=== PATIENT | female | born 1945 | race Caucasian/White ===

== ENCOUNTER 2023-08-19 08:52 | Outpatient (RCR) | payer OTHER, SELFPAY | END 2023-08-19 23:59 | disposition home or self-care (01) | LOC: RPT 08:52 | PROVIDERS: ATTENDING PHYSICIAN Family Medicine | DX: R29.6 Repeated falls (principal); R26.89 Other abnormalities of gait and mobility; M62.81 Muscle weakness (generalized); Z73.6 Limitation of activities due to disability | CPT/HCPCS: 97010; 97110; 97140; 97162; 97530 ==

== ENCOUNTER 2023-08-25 11:57 | Outpatient (RCR) | payer OTHER, SELFPAY | END 2023-08-25 13:50 | disposition home or self-care (01) | LOC: RPT 11:57 | PROVIDERS: ATTENDING PHYSICIAN Family Medicine | DX: R26.89 Other abnormalities of gait and mobility (principal); M62.81 Muscle weakness (generalized); Z73.6 Limitation of activities due to disability; R29.6 Repeated falls | CPT/HCPCS: 97110; 97140; 97530 ==

== ENCOUNTER 2024-01-23 23:07 | Inpatient (IN) | payer OTHER, SELFPAY ==
[2024-01-23] VITALS (18 sets, daily range): BP systolic 123–183; BP diastolic 62–139; BMI 29.1; BMI 28.3
--- NOTE | 2024-01-23 21:55 | ED.CVA ---
History of Present Illness
General
Chief Complaint: CVA/TIA Symptoms
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
Exam Limitations: clinical condition and altered mental status
Time Seen by Provider: 01/23/24 21:49
Onset of Stroke Symptoms
Onset of symptoms known: No
Time pt last seen normal is known: No
History of Present Illness
History of Present Illness:
78-year-old female history of CVA with resulting memory issues only per EMS report presents with acute onset of slurred speech left arm greater than leg weakness 45 minutes ago, prehospital stroke alert was called and met her in the ambulance bay
she was sent to CAT scan urgently
Prior records briefly reviewed she had a small subfalcine subdural hematoma she had a large right MCA CVA, reportedly takes a 'blood thinner'
10:08 PM discussed with pharmacy buyer med reconciliation completed as per late December of this year patient was on Brilinta but no other blood thinners
Past History
Past History
ED Past Medical History: CVA, Hypercholesterolemia, NIDDM (Controlled by Diet) and Other (Fecal incontinence)
ED Past Surgical History: Appendectomy, Cholecystectomy, Orthopedic (Bilateral knee replacements, right shoulder replacement) and Other (Cataracts)
Social History
Tobacco: Non-smoker
Alcohol: None
Drug: None
Personal:
Living: with family
Employment: Retired
Family History
Family History: Other (Mother with COPD father of brain cancer )
Review of Systems
Review of Systems
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
All Other Systems: Not applicable
Neurological: Reports weakness
Phy Exam
Physical Exam
Physical Exam:
Physical Exam
General: no apparent distress, not acutely ill
Neck: No tongue
Heart: Rate
Lungs: no acute respiratory distress. clear bilaterally
Abdomen: Nontender
Neuro: Eyes are open answers commands slurred speech left-sided weakness
Skin: no rash
Psychiatric: well kept. interactive and cooperative
Extremities: no edema.
Course
Orders/Labs/Results
Orders:
Orders
01/23/24 21:49
CT Head W/o Cont STROKE ALERT Urgent
Comment:
Reason For Exam: apahsia left sided weekenss
CT Head/Neck Ang STROKE ALERT Urgent
Comment:
Reason For Exam: apahasia left sided waekaness
Cardiac Monitoring- Treatment ONCE
01/23/24 21:50
Electrocardiogram (*1) Stat
Reason for Study: Other
Other Reason for Exam: neuro symptoms
EKG- Treatment ONCE
01/23/24 22:27
Complete Blood Count/With Diff Urgent
Comprehensive Metabolic Panel Urgent
Glycohemoglobin (HgbA1c) Urgent
PTT Urgent
Prothrombin Time Urgent
01/23/24 22:28
Labetalol HCl [Trandate] 10 mg IV NOW STA
Ondansetron Injectable [Zofran] 4 mg IV NOW STA
01/23/24 22:36
Tenecteplase [Tnkase] 18 mg Syringe [Syringe Non-Pump] 0 ml IV NOW
Provider explained risk/benefits to patient &/or caregiver?: Yes
Blood pressure: 141/108
01/23/24 22:57
Admit/Transfer Patient As Directed
Co-Sign Provider:
Level of Care: Inpatient admission
Assign to:: ICU
Physician / Group: phuc silva
Diagnosis: acute cva
Reason for Hospitalization: acute cva
Expected length of stay greater than two midnights?: Yes
ELOS- Estimated Length of Stay in days: 5
I certify the patient meets the requirements for IP care: Yes
Code Status As Directed
Resuscitation Status: Full Code
01/23/24 23:00
Flush (0.9% Sodium Chloride) [Flush (Nss)] See Dose Instructions IV PER PROTOCOL
PRN Pain Medication Management As Directed
May give lesser potent ordered pain med per pt: Yes
preference::
Protocol:: Medication orders for pain may be administered in a
manner that supports deferring to patient preference
when the pt is:
- Requesting an ordered lesser potent pain medication.
Least to most potent pain medications are defined
as: acetaminophen < NSAID < tramadol < opioids
(morphine, oxycodone, hydromorphone).
- Requesting a lesser dose of the same medication IF
ORDERED.
- Requesting a less intrusive route of administration
if both routes are prescribed by the provider (PO <
IV).
01/23/24 23:03
Labetalol HCl [Trandate] 10 mg IV NOW STA
01/23/24 23:10
Acetaminophen [Tylenol] 650 mg PO Q4HPRN PRN
Dextrose 50%-Water [Dextrose 50% Syringe] 12.5 grams IV [id number] PRN
Glucagon [GlucaGen] 1 mg IM PRN PRN
Pantoprazole [Protonix] 20 mg PO DAILYPRN PRN
01/23/24 23:10
Electrocardiogram (*1) Routine
Reason for Study: TIA/Stroke
DIETARY CONSULT Routine
Reason for Consult: stroke/TIA
[employer] Consult Routine
Consulting Provider: Darryl Knight
Was physician already notified: Yes
Reason for consult: acute cva
NEUROLOGY CONSULT Urgent
Consulting Provider: Cornelio Haney
Was physician already notified: Yes
Reason for consult: acute cva
Welt Stitcher Urgent
VTE Contraindication Routine
VTE Mechanical Device Contraindication: Medical Contraindication
Pharmocologic Contraindication: Medical Contraindication
Comment: pt received tnk
MR Brain Without Contrast Routine
Comment: complete 24 hrs post tenecteplase admin &/or IAT
Reason For Exam: poss stroke, status post tenecteplase &/or IAT,
OK for patient to be off Cardiac Monitoring for MRI: Yes
Recent pill cam endoscopy?: No
Pacemaker/Defibrillator?: No
Activity As Directed
Activity Level: With Assistance
Bedside Glucose Monitoring As Directed
Frequency: AC&HS
Additional Instructions:: Change to q6h if pt on TPN, tube feeding or not eating
Hemetest Stools As Directed
Comment: hemoccult all stools if patient received tenecteplase
NIH Stroke Scale As Directed
Directions: Other
Comment: For Tenecteplase: NIH stroke Scale to be completed prior to administration, then every 1 hour for
2 hours, then every shift and with change in condition and/or mental status.
For IAT: NIH stroke scale to be completed at hand off, every 1 hour for 2 hours on arrival to ICU;
then every shift and with change in condition and/or mental status.
Neurological Checks As Directed
Frequency: Per unit guidelines
Additional Instructions:: after start of thrombolytic therapy and/or IAT:
q15min x 2 hrs, q30min x 6 hrs, q1h x 16 hrs, q4h x 24 hrs, then every shift and
with any changes.
Neurological Checks As Directed
Frequency: q4h
Notify MD As Directed
Notify physician if: - Any deterioration, change in neurological status, development of severe headache,
nausea and vomiting, or with any signs of bleeding. (see guidelines for suspected
intracerebral hemorrhage).
- If intracranial hemorrhage is suspected or confirmed by imaging, anticipate need for
osmotic diuretic to maintain euvolemia.
Notify MD As Directed
Notify physician if: Glucose less than 70 or greater than 180.
Anticipate corrective insulin orders.
Notify MD As Directed
Notify physician if: unable to obtain MRI of head within 22-32 hours of tenecteplase administration and/or IAT
- contact Neurology for order for CT of head without contrast
Patient Education As Directed
Type: Stroke education packet
Comment: provide to patient and family
Pneumatic Compression Sleeves As Directed
Type: Knee high
Precautions As Directed
Type of Precautions: Bleeding
Comment: post Bleeding Precaution sign at bedside (if patient received tenecteplase)
Swallow Screening CVA/TIA ONLY As Directed
Comment: NPO until swallow screening completed
If patient FAILS swallow screening:: NPO and Speech consult and aspiration precautions
If patient PASSES swallow screening, diet:: 1800 kai/ 15 CHO Diabetic
Thrombolytic Precautions As Directed
Thrombolytic Precautions:: Farrell bleeding precautions. Minimize invasive procedures and venipunctures,
avoid IM injections and over-handling patient, and check all puncture sites for
bleeding. Assess the patient and notify provider for signs and symptoms of
internal or serious bleeding, such as changes in vital signs or evidence of blood
in the urine or stool.
Additional instructions: Hemocult all stools.
Apply direct pressure or pressure dressing to any compressible puncture sites.
No ABG sampling or Pepe insertion after Tenecteplase administration for 24 hours,
unless directed by the Neurologist/Attending.
Vital Signs As Directed
Frequency: q15m
Call for:: BP greater than 180/105 mmHg or less than 100/60 mmHg
Additional Instructions:: after start of thrombolytic therapy and/or IAT:
q15min x 2 hrs, q30min x 6 hrs, q1h x 16 hrs, q4h x 24 hrs, then every shift and
with any changes.
Vital Signs As Directed
Frequency: Per unit guidelines
Pulse Ox/spot Check [RESP] Routine
Quantity: 1
Ot Eval And Treat Routine
Pt Eval And Treat Routine
Activity Level: As Tolerated
Speech Therapy Eval & Treat Routine
Speech Therapy Eval & Treat Routine
DX Deep Vein Thrombosis Video Routine
01/24/24 06:00
Basic Metabolic Panel IN AM
Cardiovascular Evaluation IN AM
Complete Blood Count/No Diff IN AM
PTT IN AM
Prothrombin Time IN AM
01/24/24 07:30
Insulin Aspart Corrective Low [Novolog Flexpen-Low Resistance] See Protocol SC AC
01/24/24 08:00
Amlodipine [Norvasc] 5 mg PO DAILY
Venlafaxine Extended Release [Effexor Xr] 225 mg PO DAILY
01/24/24 18:00
Atorvastatin [Lipitor] 80 mg PO QPM
Abnormal Lab Results
01/23/24
22:27
Hct 35.8 L %
(37.0-47.0)
MCV 79.6 L fL
(81.0-99.0)
Absolute Neuts (auto) 6.8 H 10^3/uL
(1.4-6.5)
Absolute Monos (auto) 0.7 H 10^3/uL
(0.1-0.6)
Glucose 287 H mg/dl
(70-99)
01/23/24 22:27
01/23/24 22:27
Vital Signs
Initial and Last Documented VS:
Initial Vital Signs
Pulse Resp BP
97 18 178/109
01/23/24 22:02 01/23/24 22:02 01/23/24 22:02
Last Documented Vital Signs
Temp Pulse Resp BP Pulse Ox
97.6 F 80 23 153/104 93
01/23/24 22:30 01/24/24 01:50 01/24/24 01:50 01/24/24 01:50 01/24/24 01:00
MDM/Problems Addressed
Differential Diagnosis Includes:
Stroke intracerebral hemorrhage seizure with Milan's paralysis recrudescence
*Radiology
Radiology exam reviewed: radiology read reviewed
*Pulse Oximetry
Patient hypoxic: no
*Critical Care Note
Total Time (30-74mins, 75-104mins- exclusive of procedures): 45
comment:
CRITICAL CARE STATEMENT: A total of 45 minutes of critical care time was provided for this patient. This includes management of unstable vital signs, evaluation of the patient at bedside, reviewing the patient's pertinent medical records discussion
with EMS providers and patient's family in addition to discussion with consultants, review of old EKGs and review of pertinent medical records. This time with separate from time utilized to perform the aforementioned documented procedures
Update Note
Update Note:
1020p
Reevaluation patient now moving her arms and legs bilaterally, does appear to have slurred speech and a left facial which is new per the family
Reviewed indications and contraindications of lytic therapy with the patient and family shared decision making
She does appear to be a candidate, with the caveat that he get her blood pressure under control start some labetalol
1045 patient is worsened, she now aphasic again with left-sided weakness blood pressure is improved
The meantime I did receive a call from radiology this question of a distal M2 occlusion reviewed with cardiology and neurology would not be candidate here at [facility] for any intervention we will proceed with TNK
Discussed with family about the possibility of transfer downto they are comfortable staying here which I think is reasonable
CRITICAL CARE STATEMENT: A total of 45minutes of critical care time was provided for this patient. This includes management of unstable vital signs, evaluation of the patient at bedside, reviewing the patient's pertinent medical records discussion
with EMS providers and patient's family in addition to discussion with consultants, review of old EKGs and review of pertinent medical records. This time with separate from time utilized to perform the aforementioned documented procedures
ED Attending Note
-
Portions of this chart may have been created with voice recognition software.� Occasional wrong word or��sound alike� substitutions may have occurred due to the inherent limitations of voice recognition software.
Discharge Plan
Departure
Patient Disposition: Admit
Date of Disposition: 01/23/24
Time of Disposition: 22:55
Presentation/result/management discussed w/ accepting MD/DO: Hospitalist
Patient with high blood pressure during this ER visit?: No
Condition: Serious
Discharge Problem:
CVA (cerebral vascular accident)
Interventions
Interventions:
*Risk Screen - Suicide Last Done: 01/23/24 22:04
*General Assessment Last Done: 01/23/24 22:04
*Neglect/Abuse Screening Last Done: 01/23/24 22:04
*ED COVID-19 Vaccine History Last Done: 01/23/24 22:04
*Nursing Disposition Last Done: 01/23/24 23:23
ED- Pulmonary Assessment Last Done: 01/23/24 22:10
ED- Neurological Assessment Last Done: 01/23/24 22:51
ED- Cardiac Assessment Last Done: 01/23/24 22:10
ED Swallowing Screen Last Done: 01/23/24 23:21
Discharge Date and Time
Discharge Date/Time: 01/23/24 23:24
[2024-01-23 22:36] LABS: % Basophils 0.7 % (0-2); % Eosinophils 1.2 % (0-6); % Immature Granulocytes 0.3 % (0-0.5); % Neutrophils 69.8 % (42.2-75.2); Absolute Basophils 0.1 10^3/uL (0-0.2); Absolute Eosinophils 0.1 10^3/uL (0-0.7); Absolute Lymphocytes 2.1 10^3/uL (1.2-3.4); Absolute Monocytes 0.7 10^3/uL (0.1-0.6); Absolute Neutrophils 6.8 10^3/uL (1.4-6.5); Hematocrit 35.8 % (37.0-47.0); Hemoglobin 12.8 g/dL (12.0-16.0); Mean Corp Hgb Conc. 35.8 g/dL (33.0-37.0); Mean Corpuscular Hgb 28.4 pg (27.0-31.0); Mean Corpuscular Volume 79.6 fL (81.0-99.0); Mean Platelet Volume 9.3 fL (7.4-10.4); Nucleated Red Blood Cells % 0 %; Platelet Count 355 10^3/uL (130-400); Red Cell Dist. Width 14.1 % (11.5-14.5); White Blood Cell Count 9.8 10^3/uL (4.8-10.8)
[2024-01-23] MEDS: ZOFRAN 4 MG IV (22:41)
[2024-01-23 22:47] LABS: INR 0.98; PT 12.8 Sec (11.4-14.6)
[2024-01-23] MEDS: TNKASE 3.6 MG IV (22:47)
[2024-01-23 22:48] LABS: APTT 28.2 Sec (23.4-35.0)
--- NOTE | 2024-01-23 22:49 | HPS.HSE ---
Family Physician
-
Family Physician:
Chief Complaint
-
Left-sided weakness, slurred speech
History of Present Illness
78-year-old female from home with acute onset slurred speech, left arm and left leg weakness occurring 45 minutes prior to arrival in the ED. She had CT showing no acute intracranial abnormalities.. She had prior history of small subdural
hematoma, large right MCA CVA via brain MRI 07/30/2020. She is on current Brilinta 90 mg twice daily. Patient had nausea with vomiting up blackberries while in the ED. She denies fever, chills, headache, chest pain, palpitations, shortness breath,
cough, abdominal pain, diarrhea, urinary symptoms.
She is past medical history of CVA large right MCA 07/30/2020, Hx small subdural hematoma HLD, DM2, fecal incontinence, renal calculi history of laser lithotripsy ureteroscopy, anxiety, constipation
Medical History
Past Medical History
Past Medical History: Reports Other
Additional Past Medical History:
CVA large right MCA 07/30/2020
CVA x 2
Ex-smoker
PE after TSI was on Xarelto few weeks
Hx small subdural hematoma
HLD,
DM2,
fecal incontinence
renal calculi history of laser lithotripsy ureteroscopy
anxiety
constipation
Past Surgical History: Reports Other
Additional Past Surgical History:
Bilateral knee replacement
Right shoulder replacement
Cataract extraction
Appendectomy
Cholecystectomy
Hx loop recorder 2016
Uterine repair
D&C
Right TSA January 2017
Social History
Tobacco: Non-smoker
Alcohol: None
Drug: None
Personal:
Living: With Family
Employment: Retired
Family History
Family History: Other (Mother COPD father of brain CA)
Allergies / Home Medications
Allergies reflects when Allergies were last updated in [facility].
Home Medications with original date entered in [facility]
Allergy/Medication List:
Allergies
Allergy/AdvReac Type Severity Reaction Status Date / Time
No Known Allergies Allergy Verified 05/29/23 07:56
Home Medications
acetaminophen 500 mg tablet 1,000 mg PO Q8HPRN PRN mild pain 04/08/22
amlodipine 5 mg tablet 5 mg PO DAILY #90 tabs 04/22/22
ticagrelor 90 mg tablet (Brilinta) 90 mg PO BID #60 tabs 04/22/22
venlafaxine 75 mg capsule,extended release 24 hr 225 mg (3 x 75 mg) PO DAILY #90 caps 04/22/22
atorvastatin 80 mg tablet 80 mg PO QPM 01/23/24
clotrimazole 1 % topical cream 1 applic topical BID diaper rash 01/23/24
esomeprazole magnesium 20 mg capsule,delayed release (Nexium) 20 mg PO DAILYPRN PRN gerd 01/23/24
estradiol 0.01% (0.1 mg/gram) vaginal cream 1 appful vaginal TUFR 01/23/24
glimepiride 1 mg tablet 1 mg PO BID 01/23/24
quetiapine 25 mg tablet (Seroquel) 25 mg PO HS 01/23/24
trazodone 50 mg tablet 50 mg PO HS 01/23/24
Review of Systems
-
History Source: Patient and Family (Daughter at bedside)
A 12 point ROS was completed and negative except as noted: Yes
Constitutional: Denies Chills
EENT: Reports Other (Slurred speech, left peripheral field deficit, left arm left leg weakness with drift); Denies Sore Throat or Runny Nose
Respiratory: Denies Cough or Trouble Breathing
Cardiac: Denies Chest Pain, Diaphoresis, Palpitations or Syncope
Abdomen/GI: Denies Abdominal Pain, Nausea, Vomiting, Diarrhea, Constipated, Bloody Stools or Black Stools
: Denies Dysuria, Frequency, Flank Pain, Incontinence or Difficulty Voiding
Musculoskeletal: Denies Joint Pain or Edema
Skin: Denies Itching or Rash
Neurological: Denies Dizzy
Endocrine: Reports No Symptoms
Hematologic/Lymphatic: Reports No Symptoms
Psych: Reports Calm
Physical Exam
Vital Signs
Vital Signs
Temp Pulse Resp BP Pulse Ox
97.6 F 89 23 146/68 93
01/23/24 22:30 01/23/24 22:30 01/23/24 22:30 01/23/24 22:30 01/23/24 22:30
Physical Exam
General: No Fever or Chills
HEENT: NormoCephalic, Anicteric, PERRLA, [place] Conjunctivae, No Ptosis and Other (Slurred speech, left peripheral field deficit, left arm left leg weakness with drift, patient unable to complete [id number] with both arms, misses left side of
paper when reading)
Respiratory: Clear; No Wheezes, Rales or Rhonchi
Cardiac: S1/S2 and Regular Rhythm; No Murmur, Rub, Gallop or Peripheral Edema
Breast: Deferred by me
GI: Soft, Non Tender, Non Distended, Normal Bowel Sounds and No Hepatosplenomegaly
Rectal: Deferred by Provider
Genito-urinary: Deferred by me
Musculoskeletal: No Clubbing, No Cyanosis and No Edema
Skin: Warm and Dry; No Rash
Neuro: Awake, Alert, Oriented (To name, year but not month thinks it is July), No Sensory Deficits, Slurred Speech and Other (Slurred speech, left peripheral field deficit, left arm left leg weakness with drift 3/5 patient unable to complete
[id number] with both arms, misses left side of paper when reading); No Facial Droop
Psych: Calm
Laboratory Results
-
01/23/24 22:27
Laboratory Results
PT 12.8 Sec (11.4-14.6) 01/23/24 22:27
INR 0.98 01/23/24 22:27
APTT 28.2 Sec (23.4-35.0) 01/23/24 22:27
Data Reviewed
-
CT Scan: Report Reviewed by me
Lab Data: Labs Reviewed by me
Impression/Plan
-
Impression/plan:
Admit to ICU
#Acute CVA with left-sided weakness
PMH large right MCA infarct 07/30/2020
-TNK given in ER, TNK precautions
-Check lipid profile, HgbA1c
-Consult Neurology
-Hold Brilinta 90 mg twice daily until neurology eval
-PT/OT/case management consult
CT head: 1. No acute intracranial abnormality noted. Specifically, no definite evidence to suggest acute large vascular territory transcortical infarct at this time.
2. However, limited by extensive chronic ischemic change and numerous old infarcts. No acute intracranial hemorrhage.
3. Advanced global atrophy.
2D echo 01/15/2022: EF 55 to 60%, mild MR trace TR
#Ex-smoker
#PE after TSA was on Xarelto a few weeks
Hx loop recorder 2016
#HTN�benign
BP 146/68
-Continue amlodipine 5 mg daily
#HLD
-Check lipid profile
-Continue atorvastatin 80 mg every afternoon
#DM 2
Accu-Cheks with SSI, check HgbA1c
HOLD Glimepiride 1 mg twice daily
#anxiety
-Continue Seroquel 25 mg at bedtime, trazodone 50 mg at bedtime, Effexor to 25 mg daily
#GERD
Continue Nexium 20 mg daily or equivalent
#Constipation hx
-Monitor bowel movements
Other PMH:
fecal incontinence,
renal calculi history of laser lithotripsy ureteroscopy
DVT prophylaxis
SCDs given patient received TNK
Full code
[2024-01-23 22:55] LABS: ALT (SGPT) 17 U/L (0-35); AST (SGOT) 24 U/L (14-36); Albumin 3.8 g/dl (3.5-5.0); Alkaline Phosphatase 86 U/L (38-126); Blood Urea Nitrogen 15 mg/dl (7-17); Calcium 9.2 mg/dl (8.4-10.2); Carbon Dioxide 25 mmol/L (22-30); Chloride 100 mmol/L (98-107); Estimated Creatinine Clearance 52 ml/min; Glucose 287 mg/dl (70-99); Potassium 3.7 mmol/L (3.5-5.1); Sodium 137 mmol/L (135-145); Total Bilirubin 0.3 mg/dl (0.2-1.3); Total Protein 6.7 g/dl (6.3-8.2); eGFR > 60.00
[2024-01-24] VITALS (72 sets, daily range): BP systolic 93–182; BP diastolic 63–123; BMI 28.3
[2024-01-24] MEDS: TRANDATE 5 MG IV (00:04)
--- NOTE | 2024-01-24 00:36 | PTCARENOTE ---
Addendum entered by Tim Turner RN 01/24/24 00:48:
Bedside swallow exam completed, pt. successfully able to complete water challenge.
Original Note:
received pt. from ED post TNK, bedside report given, NIH assessment done at handoff.
NIH upon arrival : 9
Second NIH 1 hour later : 7
very mild aphasia, skips one word in sentence at times.
Mild dysarthria, slurr is present but understandable speech.
Pupils are equal and briskly reactive 2mm, normal gaze, however partial hemianopia with L eye. Mild L sided facial droop w/ smile.
Clumsy in L upper and lower extrem, Slight drift, R side no drift, coordinated.
Normal sinus on monitor, elevated diastolic pressures, 5mg labetalol given. normothermic.
--- NOTE | 2024-01-24 02:13 | W.PN.UPDATE ---
Update Note
Progress Note Update
0210- Patient vomiting, denies headache, no acute/new changes in neurological exam. STAT ct head ordered. Zofran IV 4mg ordered for nausea/vomiting. Updated neurologist Dr. Cornelio Haney, agreed with orders/plan.
[2024-01-24] MEDS: ZOFRAN 4 MG IV (02:17)
--- NOTE | 2024-01-24 02:42 | PTCARENOTE ---
Pt. had large episode of emesis, STAT CT ordered and completed.
Neurological status improving, new NIH score 7.
[2024-01-24] MEDS: TRANDATE 10 MG IV ×2 (03:05→16:15)
--- NOTE | 2024-01-24 03:18 | PTCARENOTE ---
Pt. SPo2 87-90, placed on 2L nc.
[2024-01-24 04:42] LABS: Hematocrit 37.6 % (37.0-47.0); Mean Corp Hgb Conc. 34.6 g/dL (33.0-37.0); Mean Corpuscular Hgb 27.9 pg (27.0-31.0); Mean Corpuscular Volume 80.7 fL (81.0-99.0); Mean Platelet Volume 9.3 fL (7.4-10.4); Platelet Count 361 10^3/uL (130-400); Red Blood Cell Count 4.66 10^6/uL (4.20-5.40); Red Cell Dist. Width 14.1 % (11.5-14.5); White Blood Cell Count 12.5 10^3/uL (4.8-10.8)
[2024-01-24 04:49] LABS: INR 1.02; PT 13.2 Sec (11.4-14.6)
[2024-01-24 04:50] LABS: APTT 28.1 Sec (23.4-35.0)
[2024-01-24 04:56] LABS: Blood Urea Nitrogen 14 mg/dl (7-17); Calcium 9.3 mg/dl (8.4-10.2); Carbon Dioxide 28 mmol/L (22-30); Chloride 100 mmol/L (98-107); Estimated Creatinine Clearance 51 ml/min; Glucose 289 mg/dl (70-99); HDL Cholesterol 51 mg/dl; LDL Cholesterol, Calculated 170 mg/dl; Magnesium 2.1 mg/dl (1.6-2.3); Phosphorus 4.5 mg/dl (2.5-4.5); Potassium 4.2 mmol/L (3.5-5.1); Sodium 140 mmol/L (135-145); Total Cholesterol 274 mg/dl (50-199); Triglyceride 266 mg/dl (10-149); Very Low Density Lipoprotein 53 mg/dl (0-30); eGFR > 60.00
--- NOTE | 2024-01-24 06:43 | W.PN.HOSP.TC ---
Today's Communication/Plan
-
.
Assessment / Plan
Assessment / Plan
Physical Exam
General: comfortable, no respiratory distress
HEENT: NormoCephalic, Anicteric, PERRLA, [place] Conjunctivae, right facial droop
Respiratory: Clear; No Wheezes, Rales or Rhonchi
Cardiac: S1/S2
GI: Soft, Non Tender, Non Distended, Normal Bowel Sounds
Rectal: No rectal bleeding
Genito-urinary: No Pepe
Musculoskeletal: No Clubbing, No Cyanosis and No Edema
Skin: Warm and Dry; No Rash
Neuro: Awake, Alert, Oriented to self and surroundings, no slurred Speech, right facial droop, no pronator drift, she followed commands. Gait not assessed
Psych: Calm
#Acute onset of slurred speech and with left-sided weakness, s/p TNK given in ER 01/23/24
PMH large right MCA infarct 07/30/2020
She feels better, speech seems fluent. Denies headache or chest pain, feels arms are normal now
-Hold Brilinta 90 mg twice daily until neurology evaluation
-PT/OT/Speech consult
- Repeat CT head after vomiting episode overnight showed stable findings of multiple regions of old infarction. Moderate diffuse atrophy. Moderate to severe leukomalacia.
- Moderate dementia with other behavioral disturbance per records.
- Appreciate neurology input
# Leukocytosis, reactive
# Recurrent major depressive disorder. Continue with venlafaxine, quetiapine and trazodone.
#Ex-smoker
#History of PE.
# Hx loop recorder 2016
#HTN�benign
BP 146/68
-Hold amlodipine 5 mg daily. Add PRN IV Hydralazine
#HLD
-Continue atorvastatin 80 mg every afternoon
#DM 2
Accu-Cheks with SSI, check HgbA1c
Holding Glimepiride 1 mg twice daily
#GERD
Continue Nexium 20 mg daily or equivalent
#Constipation hx
-Monitor bowel movements
Other PMH:
fecal incontinence,
renal calculi history of laser lithotripsy ureteroscopy
DVT prophylaxis
SCDs given patient received TNK
Total time spent to see the patient, examine the patient on the floor, review data and lab results, discuss the treatment plan with the patient, nursing staff around 55 minutes
Anticipated Discharge: 24 - 48 hours
Subjective/Interval History
-
Date of Service: January 24, 2024
She feels better, able to speak
She is forgetful
She is able to move arms and legs
Objective Data
-
Labs:
Laboratory Results
01/23/24 01/24/24
22:27 04:08
WBC 9.8 12.5 H
Hgb 12.8 13.0
Hct 35.8 L 37.6
Plt Count 355 361
PT 12.8 13.2
INR 0.98 1.02
APTT 28.2 28.1
Sodium 137 140
Potassium 3.7 4.2
Chloride 100 100
Carbon Dioxide 25 28
BUN 15 14
Creatinine 0.8 0.8
Glucose 287 H 289 H
Calcium 9.2 9.3
Total Bilirubin 0.3
AST 24
ALT 17
Alkaline Phosphatase 86
Vital Signs:
Vital Signs
Temp Pulse Resp BP Pulse Ox
98.7 F 77 24 149/76 92
01/24/24 06:00 01/24/24 06:20 01/24/24 06:20 01/24/24 06:20 01/24/24 06:20
I&O
01/22/24 01/23/24 01/24/24
06:59 06:59 06:59
Intake Total
Balance
[2024-01-24 07:31] LABS: Glucose - Point of Care 223 mg/dl (70-99)
--- NOTE | 2024-01-24 07:45 | CON.INTV ---
Addendum entered and electronically signed by Teodoro Austin MD 01/24/24 10:36:
Both and patient have confirmed DNR status
Asked to bring in documentation for scanning into [facility]
Patient is DNR, this has been changed
Original Note:
Consultation
Consultation Request
Date/Time Consultation Requested: 01/24/24
Date/Time Consultation Performed: 01/24/24
Reason for Consultation: Critical care
Medical History
-
History of Present Illness:
History obtained from the chart, patient, daughter at bedside, additional history obtained from at bedside, and review of outpatient records. Patient is an 78-year-old female with history of right MCA stroke 2020 hospitalized at [place],
who presents with acute onset slurred speech. Apparently she was at home and her thought her speech was not adequate. Records suggest left-sided weakness, she could not put her hand on the walker well ambulating. For this reason she was
brought to [facility], where upon arrival afebrile, pulse 97, breathing 18, blood pressure 178/109. Stroke alert was called,. Per ED records, clinical worsening noted. Imaging confirmed indication for lytic therapy. Patient mated to ICU
for further management. Of note she required intermittent doses of labetalol. We are asked to help from critical care standpoint
Of note, patient was evaluated by primary physician 01/17/2024. Received flu shot
.
PMH: History of stroke in 2019 and again in 2020 complicated by subdural bleed, history of hyperlipidemia, diabetes, bilateral knee replacement, gait dysfunction walks with walker. Records also suggest history of fecal incontinence, fibromyalgia.
History of appendectomy, cholecystectomy, right shoulder replacement, cataracts, History of nephrolithiasis with lithotripsy
Past Medical History
Past Medical History: None (See above)
Past Surgical History: None (See above)
Social History
Tobacco: Non-smoker
Alcohol: None
Drug: None
Personal:
Living: With Family
Family History
Family History: Other (Mother with history of COPD, father with brain cancer. 2 children healthy)
Allergies / Home Medications
Allergies
Allergy/AdvReac Type Severity Reaction Status Date / Time
No Known Allergies Allergy Verified 05/29/23 07:56
Home Medications
�Medication �Instructions �Recorded �Confirmed �Last Taken �Type
acetaminophen 500 mg tablet 1,000 mg PO Q8HPRN PRN mild pain 04/08/22 01/23/24 Unknown History
amlodipine 5 mg tablet 5 mg PO DAILY #90 tabs 04/22/22 01/23/24 Unknown Rx
ticagrelor 90 mg tablet (Brilinta) 90 mg PO BID #60 tabs 04/22/22 01/23/24 Unknown Rx
venlafaxine 75 mg capsule,extended 225 mg (3 x 75 mg) PO DAILY #90 04/22/22 01/23/24 Unknown Rx
release 24 hr caps
atorvastatin 80 mg tablet 80 mg PO QPM 01/23/24 01/23/24 Unknown History
clotrimazole 1 % topical cream 1 applic topical BID diaper rash 01/23/24 01/23/24 Unknown History
esomeprazole magnesium 20 mg 20 mg PO DAILYPRN PRN gerd 01/23/24 01/23/24 Unknown History
capsule,delayed release (Nexium)
estradiol 0.01% (0.1 mg/gram) 1 appful vaginal TUFR 01/23/24 01/23/24 Unknown History
vaginal cream
glimepiride 1 mg tablet 1 mg PO BID 01/23/24 01/23/24 Unknown History
quetiapine 25 mg tablet (Seroquel) 25 mg PO HS 01/23/24 01/23/24 Unknown History
trazodone 50 mg tablet 50 mg PO HS 01/23/24 01/23/24 Unknown History
Review of Systems
-
History Source: Family
All other systems: Negative unless noted
Vitals / Labs / Diagnostic Testing
Vital Signs
Temp Pulse Resp BP Pulse Ox
98.3 F 83 18 162/90 92
01/24/24 07:28 01/24/24 06:50 01/24/24 06:50 01/24/24 06:50 01/24/24 06:20
Lab Data
01/24/24 04:08
01/24/24 04:08
Laboratory Results
01/23/24 01/24/24
22:27 04:08
PT 12.8 13.2
INR 0.98 1.02
APTT 28.2 28.1
Diagnostic Testing:
Physical Exam
-
HEENT: Normocephalic and Anicteric
Cardiovascular: S1/S2, Regular Rhythm, Murmur (n) and Rub (n)
Respiratory: Wheeze (n), Rales (n), Rhonchi (n) and Non-Labored Respirations
GI: Soft, Non Distended and Non Tender
Neurology: Awake, Alert, Oriented (To hospital) and Other (Mild left facial droop, otherwise moves all extremities)
Skin: Good Color
General: Comfortable
Assessment
-
78-year-old female with history of stroke x 2, right MCA 2020 with small subdural hematoma, hypertension, diabetes, presents with acute onset of slurred speech and left-sided weakness. Initial imaging unremarkable. Patient was given tPA. Patient
also required intermittent labetalol for hypertension. We are asked to help from critical care standpoint 01/24/2024
Acute CVA, Rt MCA
Slurred speech, left-sided weakness
s/p TNK on 2246
NIH 12 level on presentation
Possible small right M2 thrombus per CTA
History of stroke x 2
2020 with small subdural hematoma
Prolonged QT, per EKG
Conditions present prior to admission
Hypertension/hyperlipidemia
Diabetes
GERD
History of falls
Gait disturbance
History of depression
Plan/recommendations
At this time, patient appears to be improved, NIH has improved to 6
Mild left facial droop noted, speech appears to be adequate, general exam nonfocal per my review
Labile blood pressure noted, received labetalol x 2 overnight
Moving forward
Continue with management per stroke protocol
Neurology following
Await decision on reinitiation of antiplatelet therapy, Brilinta being held patient did have episode of emesis overnight
Repeat imaging without any acute findings
Follow-up blood pressures
Labetalol as needed
Target systolic pressure 140-1 80, diastolic less than 105
Patient on oral antihypertensive therapy, hold for now
History of Linq implant 2016, negative for arrhythmias, explanted 2020
Recent echo 01/16/2024 with normal biventricular function, mild MR
Cardiology following
Hyperlipidemia therapy noted
Hyperglycemia noted
Resume oral regimen
Speech and swallow evaluation, advance diet as able
Sliding scale for now
Patient with snoring history. Given history of recurrent stroke, consider outpatient sleep workup if agreeable
This will be an ongoing discussion
Of note, states the patient is DNR. Will need to clarify and confirm. states documents show patient is DNR, does not want CPR or mechanical ventilation
Reviewed with critical care nursing, respiratory care, pharmacy, case management
TCCT 31 min
[2024-01-24] MEDS: EFFEXOR XR 225 MG PO (07:59)
[2024-01-24] MEDS: NOVOLOG FLEXPEN-LOW RESISTANCE 2 UNITS SC (08:07)
--- NOTE | 2024-01-24 08:25 | PTOTSP ---
Addendum entered and electronically signed by ST Ti 01/24/24 15:36:
Addendum: BLIND MOCA 8.2= 04/13, below normal (19 or greater), concerning for at least a moderate cognitive linguistic impairment with deficits in attention, working memory, abstract reasoning, temporal orientation, and delayed recall. Further
assessment warranted at the outpatient level. Patient in agreement.
Original Note:
Dysphagia Evaluation
Patient presents with signs concerning for mild oral/pharyngeal dysphagia and with risk factors for this (admitted with concern for stroke s/p TNK, history of multiple strokes).
Recommend:
1. Regular (pick soft/moist), Thin Liquids
2. Medications - whole in puree
3. Full supervision, partial assistance
4. Strategies: upright to 90 degrees, small single sips/bites, slow rate, check for pocketing on the left, alternate sips/bites and/or use lingual sweep to clear left side of mouth, remain upright for 30 minutes after meals as a reflux precaution
5. Oral care 3x daily
6. Dysphagia therapy at the acute care level. Will f/u to determine if/when video swallow study warranted.
7. Speech/language/cognitive evaluation as able/appropriate.
--- NOTE | 2024-01-24 09:09 | CON.CAR ---
Addendum entered and electronically signed by Dieudonne Alonzo MD 01/24/24 11:10:
I saw and examined the patient.
The COTTRELL BLOWER's note was reviewed and I agree with the note.
Comment: Neurology note reviewed. She was not on statin. unsure why/when it was stopped. Agree with resumption. Old labs suggest even on Atorvastatin 80 mg the LDL was above 70 so will add ezetimide. She has had a prior Linq for another
event that never showed AFib. Will start with a two week monitor and Dr. Calix may decide not to do more monitoring.
longterm BP goal <130/80, but neurology prefers less aggressive BP control for now.
Defer antiplatelet therapy to neurology.
Echo was from 01/15/2022. Will order echo.
Watch on tele for AFib
Original Note:
Consultation
Consultation Request
Date/Time Consultation Requested: 01/24/24 6:45a
Date/Time Consultation Performed: 01/24/24 8:30a
Requesting Provider: Dr. Mejía
Performing Provider: CESIA Miller for Dr. Alonzo
Reason for Consultation: CVA
Medical History
-
Chief Complaint: slurred speech and left sided weakness
History of Present Illness:
Mrs. Buchanan is an 78-year-old female with dyslipidemia, mild mitral regurgitation, [id number] diabetes, anxiety, fibromyalgia, syncope 12/2016 status post [employer] LINQ implant 03/2017, explanted 01/2021, s/p fall 03/2022 had small SDH and
right MCA CVA 07/2020 (on Brilinta 90mg BID), who presented to the ER 01/23/24 with slurred speech and left sided weakness. Initial head CT w/o acute abnormality; Head/neck CTA showed right middle cerebral artery filling defect in the P2 segment,
consistent with nonocclusive thrombus, therefore TNK was given in the ER. She was admitted to the ICU per protocol post TNK. She denies any cardiac symptoms. EKG and tele show NSR, no Afib seen. She just had an echo 01/16/24 with EF 55-60%, mild
MR.
Past Medical History
Past Medical History: Other (as above)
Past Surgical History: Appendectomy, Cardiac (LINQ implant 03/2017, explanted 01/2021), Cholecystectomy and Orthopedic (b/l knee replacement, right shoulder replacement)
Social History
Tobacco: Former Smoker
Alcohol: None
Personal:
Living: With Family
Family History
Family History: Reviewed & Not Pertinent
Allergies / Home Medications
Allergy/AdvReac Type Severity Reaction Status Date / Time
No Known Allergies Allergy Verified 05/29/23 07:56
�Medication �Instructions �Recorded �Confirmed �Type
acetaminophen 500 mg tablet 1,000 mg PO Q8HPRN PRN mild pain 04/08/22 01/23/24 History
amlodipine 5 mg tablet 5 mg PO DAILY #90 tabs 04/22/22 01/23/24 Rx
ticagrelor 90 mg tablet (Brilinta) 90 mg PO BID #60 tabs 04/22/22 01/23/24 Rx
venlafaxine 75 mg capsule,extended 225 mg (3 x 75 mg) PO DAILY #90 04/22/22 01/23/24 Rx
release 24 hr caps
atorvastatin 80 mg tablet 80 mg PO QPM 01/23/24 01/23/24 History
clotrimazole 1 % topical cream 1 applic topical BID diaper rash 01/23/24 01/23/24 History
esomeprazole magnesium 20 mg 20 mg PO DAILYPRN PRN gerd 01/23/24 01/23/24 History
capsule,delayed release (Nexium)
estradiol 0.01% (0.1 mg/gram) 1 appful vaginal TUFR 01/23/24 01/23/24 History
vaginal cream
glimepiride 1 mg tablet 1 mg PO BID 01/23/24 01/23/24 History
quetiapine 25 mg tablet (Seroquel) 25 mg PO HS 01/23/24 01/23/24 History
trazodone 50 mg tablet 50 mg PO HS 01/23/24 01/23/24 History
Review of Systems
-
History Source: Patient
All other systems: Negative unless noted
Physical Exam
Vital Signs
Temp Pulse Resp BP Pulse Ox
98.3 F 79 20 153/73 93
01/24/24 07:28 01/24/24 08:30 01/24/24 08:30 01/24/24 08:02 01/24/24 08:30
Lab Results
01/24/24 04:08
01/24/24 04:08
Physical Exam
General: Well Developed, Well Nourished and No Apparent Distress
HEENT: Normocephalic and Anicteric
Respiratory: Clear and Non Labored Respirations
Cardiac: S1/S2, Regular Rhythm and Murmur (2/6 ARIANNE)
Impression / Plan
-
CVA - acute s/p TNK given in the ER.
- Head/neck CTA: right middle cerebral artery filling defect in the P2 segment, consistent with nonocclusive thrombus.
- Neurology managing.
- prior large right MCA infarct on brain MRI 07/2020.
- LINQ implanted 03/2017, no arrhythmias/no Afib seen, explanted 01/2021.
- echo 01/16/24: EF 55-60%, mild MR.
- on Brilinta 90mg BID, but currently on hold since given TNK.
- antiplatelet therapy per Neurology.
- on Lipitor 80mg with LDL 170, goal LDL < 70, add Zetia now and discuss PCSK9i as an outpatient.
- will set up outpatient 2 week monitoring and follow up.
Dyslipidemia - on Lipitor 80 mg, but patient's is not exactly sure if she is taking it at home.
- LDL 170, goal is less than 70.
- add Zetia 10mg daily.
- discuss PCSK9i as an outpatient.
Mitral regurgitation - stable.
- mild on echo, monitor.
Ktb-wzophcv-jmopdxtqb diabetes - poorly controlled with hemoglobin A1c 9.2% on labs 01/18/24.
- managed by PCP Dr. Turner.
Syncopal episode - December 2016.
- No recurrence.
- Echo, telemetry, and EP study negative.
- LINQ implant, no arrhythmias seen on routine outpatient device checks, explanted LINQ 01/2021.
Data Reviewed
-
EKG: Tracing Personally Visualized and interpreted (NSR 87 bpm, prolonged QT, possible anterolateral infarct)
CT Scan: Report Reviewed by me (Head/neck CTA: right middle cerebral artery filling defect in the P2 segment, consistent with nonocclusive thrombus)
Medical Tests (Nuc Med, Echo etc): Report Reviewed by me (echo 01/16/24 with EF 55-60%, mild MR)
Labs: Labs Reviewed by me
Old Records: Reviewed
--- NOTE | 2024-01-24 09:24 | CON.NEURO4 ---
Consultation - Neurology 4
-
CONSULTING PHYSICIAN: Cornelio Haney MD neurology
REFERRING PHYSICIAN: Hospitalist
DICTATED BY: Sim Haney MD
DATE/TIME OF REQUEST: 01/23/2024
DATE/TIME OF CONSULTATION: 01/24/2024
Reason for Consultation: Slurred speech and left-sided weakness
History of Present Illness:
This is a 78 year old right) handed female) who has presented to the hospital with (chief complaint) of left-sided weakness and slurred speech at 845 PM. She gives a history of hypertension hyperlipidemia diabetes GERD right MCA infarct with left
hemiparesis that resolved with residual cognitive issues secondary to small vessel disease and vascular insufficiency and a small subdural the year before. She was watching TV with her and became nauseated and tried to stand up to go to the
bathroom. Her noted that her speech was slurred and that she had difficulty using the left side. He then called EMS when her speech impediment persisted.
When she was brought into the emergency room she was weak on the left side with slurred speech. NIH stroke scale was [address] of the head was done which showed extensive small vessel disease right greater than left. CT angio showed possible right M2 thrombus.
Patient received TNK 2236
Past Medical History: CVA hypertension
Surgical History: Appendectomy cholecystectomy bilateral knee replacement right shoulder repair cataract surgery
Family History: Mother had COPD father of brain cancer
Social History: Lives at home with her
Allergies: No known drug allergies
Home Medications: Addendum
Review of Symptoms:
Patient denies any fever, headache, chest pain, shortness of breath, GI or symptoms.
�Per the HPI.�All systems are reviewed negative except above.
�-
Vital Signs:
The patient has a Temp 36.8 C Pulse 82 Resp 24 BP 119/100 Pulse Ox 93
Physical Exam:
The patient is afebrile, heart sounds S1 and S2 are (regular / irregular), and chest is clear to auscultation bilaterally.
- If not clear, describe.
NIH Stroke Scale (if applicable):
I performed the NIH stroke scale on the patient. The patient scored 0 points on the NIH stroke scale assessment, which were assigned as follows:
Neurologic Examination:
The patient is awake, alert and oriented x person place. She) is able to follow commands and answer questions appropriately. There is no aphasia or dysarthria. She does have difficulty with recall with intact registration
On cranial nerve assessment, pupils are 3 mm bilateral, round and reactive to light and accommodation. Visual sandra are full. Extraocular movements are intact. Facial sensations are intact and bilaterally symmetrical,
there is mild facial asymmetry. Hearing is intact bilaterally to normal conversation volume. Tongue palate and uvula are midline. Sternocleidomastoid strengths are full bilaterally. Motor strengths are 5/5 bilateral upper and lower extremities on
medical research [place] scale. There is no drift or involuntary movement noted. Deep tendon reflexes are + bilateral upper and lower extremities and Babinski is absent bilaterally. Sensations of pain, touch, temperature and vibration are intact and
bilaterally symmetrical. There was no extinction noted on double simultaneous stimulation. Coordination is intact by finger to nose bilaterally.
Lab Results: Addendum
Neuro Imaging: CT head: Atrophy. Extensive small vessel disease bilaterally. R>L with lacunar disease. Mild ventricular expansion
Impression:
(Mrs.) QUENTIN CHEN is a 78 year old F who has presented to the hospital with (symptoms/chief complaint) Of slurred speech and left-sided weakness status post TNK infusion with resolution of symptoms and return to baseline cognition speech and motor
function
Differentials for the patient's presentation include:
1. Right M2 occlusion with right frontal infarction
Patient has the following risk factors for their symptoms: HTN, DM, Age, previous CVA
IV Tenecteplase/IAT candidacy
Recommendations:
1. Serial CT head
2. Permissive hypertension
3. Restart Brilinta tonight
4. Lipitor 80
5. MRI brain
6. Speech therapy
7. PT OT
8. Echocardiogram
9. Serial neuro exam/NIHSS
Discussed patient care with: Hospitalist
Allergies
-
Allergies
Allergy/AdvReac Type Severity Reaction Status Date / Time
No Known Allergies Allergy Verified 05/29/23 07:56
Vital Signs and Labs
-
Vital Signs and Labs:
Vital Signs
Temp Pulse Resp BP Pulse Ox
36.8 C 82 24 119/100 93
01/24/24 07:28 01/24/24 09:03 01/24/24 09:03 01/24/24 09:03 01/24/24 09:03
Lab Results
01/24/24 04:08
01/24/24 04:08
PT 13.2 Sec (11.4-14.6) 01/24/24 04:08
INR 1.02 01/24/24 04:08
APTT 28.1 Sec (23.4-35.0) 01/24/24 04:08
Sodium 140 mmol/L (135-145) 01/24/24 04:08
Potassium 4.2 mmol/L (3.5-5.1) 01/24/24 04:08
BUN 14 mg/dl (7-17) 01/24/24 04:08
Glucose 289 mg/dl (70-99) H 01/24/24 04:08
Calcium 9.3 mg/dl (8.4-10.2) 01/24/24 04:08
Phosphorus 4.5 mg/dl (2.5-4.5) 01/24/24 04:08
LDL Cholesterol, Calc 170 mg/dl 01/24/24 04:08
Medications
-
Active Medications
Generic Name Dose Route Start Last Admin
Trade Name Freq PRN Reason Stop Dose Admin
Acetaminophen 650 mg 01/23/24 23:10
Acetaminophen 325 Mg Tablet PO 02/20/24 23:09
Q4HPRN PRN
mild pain/BENJAMIN/temp> 100.4F
Atorvastatin Calcium 80 mg 01/24/24 18:00
Atorvastatin (Lipitor) 80 Mg Tablet PO 02/21/24 17:59
QPM CHER
Dextrose 12.5 grams 01/23/24 23:10
Dextrose 50% (0.5 Grams/Ml) 50 Ml Syringe IV 02/20/24 23:09
[id number] PRN
hypoglycemia
Protocol
Ezetimibe 10 mg 01/24/24 22:00
Ezetimibe (Zetia) 10 Mg Tablet PO 02/21/24 21:59
HS CHER
Glimepiride 1 mg 01/24/24 09:00
Glimepiride 1 Mg Tablet PO 02/21/24 08:59
BID CHER
Glucagon 1 mg 01/23/24 23:10
Glucagon 1 Mg Vial IM 02/20/24 23:09
PRN PRN
hypoglycemia
Protocol
Hydralazine HCl 10 mg 01/24/24 06:42
Hydralazine 20 Mg/Ml Vial IV 02/21/24 06:41
Q4HPRN PRN
SBP more than 180
Insulin Aspart 0 units 01/24/24 07:30 01/24/24 08:07
Insulin Aspart Low Resistance 300 Units/3 Ml Pen.Injctr SC 02/21/24 07:29 2 units
AC CHER Administration
Protocol
Ondansetron HCl 4 mg 01/24/24 02:07 01/24/24 02:17
Ondansetron 4 Mg/2 Ml Vial IV 02/21/24 02:06 4 mg
Q6HPRN PRN Administration
NAUSEA/VOMITING
Pantoprazole Sodium 20 mg 01/23/24 23:10
Pantoprazole 20 Mg Delayed Release Tablet PO
DAILYPRN PRN
gerd
Quetiapine Fumarate 25 mg 01/24/24 22:00
Quetiapine 25 Mg Tablet PO 02/21/24 21:59
HS CHER
Sodium Chloride 0 flush 01/23/24 23:00
Sodium Chloride 0.9% (Flush) Syringe IV 02/20/24 22:59
PER PROTOCOL CHER
Trazodone HCl 50 mg 01/24/24 22:00
Trazodone 50 Mg Tablet PO 02/21/24 21:59
HS CHER
Venlafaxine HCl 225 mg 01/24/24 08:00 01/24/24 07:59
Venlafaxine 75 Mg Extended Release Capsule PO 02/21/24 07:59 225 mg
DAILY CHER Administration
Home Medications
�Medication �Instructions �Recorded
acetaminophen 500 mg tablet 1,000 mg PO Q8HPRN PRN mild pain 04/08/22
amlodipine 5 mg tablet 5 mg PO DAILY #90 tabs 04/22/22
ticagrelor 90 mg tablet (Brilinta) 90 mg PO BID #60 tabs 04/22/22
venlafaxine 75 mg capsule,extended 225 mg (3 x 75 mg) PO DAILY #90 04/22/22
release 24 hr caps
atorvastatin 80 mg tablet 80 mg PO QPM 01/23/24
clotrimazole 1 % topical cream 1 applic topical BID diaper rash 01/23/24
esomeprazole magnesium 20 mg 20 mg PO DAILYPRN PRN gerd 01/23/24
capsule,delayed release (Nexium)
estradiol 0.01% (0.1 mg/gram) 1 appful vaginal TUFR 01/23/24
vaginal cream
glimepiride 1 mg tablet 1 mg PO BID 01/23/24
quetiapine 25 mg tablet (Seroquel) 25 mg PO HS 01/23/24
trazodone 50 mg tablet 50 mg PO HS 01/23/24
[2024-01-24] MEDS: AMARYL 1 MG PO ×2 (10:01→17:04)
--- NOTE | 2024-01-24 10:14 | CM ---
CM following re: discharge planning.
Discussed in Rounds, reviewed pt's chart, met with pt and pt's at bedside.
Pt is an 78 year old female, admitted with primary dx of CVA. Per Rounds meeting, status post TNK yesterday night, MRI today, continue supportive care.
Pt reports she lives with in 1SH, 1 step to enter, has 2 supportive children. Pt reports she ambulates with a walker, known to [facility] and was going to outpatient PT/OT in the past.
PT and OT will evaluate the pt to determine a level of care at discharge. ST indicates skilled services.
PCP: Kenny Turner
Pharmacy: [facility]
D/C plan: Awaiting for PT/OT evaluations and recommendations of next level of care.
CM will follow with discharge plan updates as hospitalization progresses
--- NOTE | 2024-01-24 10:45 | PTCARENOTE ---
Pt reported needing to go to bathroom. With assist of 1 and pt using a walker, able to get to bathroom where pt voided, had bm then cleaned hands and brushed teeth with assistance. Pt then assisted to sit in a chair. Tolerated well.
[2024-01-24] MEDS: NOVOLOG FLEXPEN-MODERATE RESISTANCE 1 UNITS SC (12:02)
[2024-01-24 12:10] LABS: Glucose - Point of Care 191 mg/dl (70-99)
--- NOTE | 2024-01-24 12:30 | PTCARENOTE ---
Systems reviewed. Pt more consistent with orientation questions, [facility] in '[place]', not [facility], after multiple attempts 2023. ALVES, follows commands, Remains oob to chair. Family in and out t/o day.
[2024-01-24] MEDS: TYLENOL 650 MG PO (12:41)
--- NOTE | 2024-01-24 15:30 | PTCARENOTE ---
Systems reviewed. Still pleasantly confused, but redirectable. Continues to move all extremities. Back to bed after lunch to rest, echo at bedside. Otherwise see flowsheets.
[2024-01-24] MEDS: NOVOLOG FLEXPEN-MODERATE RESISTANCE SC (17:04)
[2024-01-24] MEDS: LIPITOR 80 MG PO (17:04)
[2024-01-24 17:05] LABS: Glucose - Point of Care 129 mg/dl (70-99)
--- NOTE | 2024-01-24 18:08 | PTCARENOTE ---
Pt remains pleasant and cooperative t/o shift. Pt has had confused conversation t/o day and has intermittent slurring, but pt speaks a lot and quickly. All speech has been intelligible. Pt restless making accurate bp challenging requiring
multiple repeated checks t/o shift. Pt was given labetalol once as charted for elevated dbp consistent after repeated checks. Otherwise no change in assessment
--- NOTE | 2024-01-24 19:48 | PTCARENOTE ---
Addendum entered by Nicole Duron RN 01/24/24 22:13:
@1900- pt pleasantly confused, redirectable, able to make needs known.
Original Note:
pt received from previous rn at bedside- [facility] 6. pt with slightly weaker left side, good strength in extremities. mild slurred speech. able to walk to bathroom x1 assist with walker. no complaints at this time. pending mri- pt verbalized
understanding. pt with restless legs at baseline. nsr on monitor, room air. turns and repositions self in bed. all safety precautions in place, bed alarm on, call sofia within reach.
[2024-01-24 20:35] LABS: Glucose - Point of Care 166 mg/dl (70-99)
[2024-01-24] MEDS: SEROQUEL 25 MG PO (22:26)
[2024-01-24] MEDS: ZETIA 10 MG PO (22:26)
[2024-01-24] MEDS: DESYREL 50 MG PO (22:26)
[2024-01-24] MEDS: DESENEX/MITRAZOL/ZEASORB 1 APPLIC TOPICAL (22:26)
[2024-01-24] MEDS: BRILINTA 90 MG PO (22:30)
--- NOTE | 2024-01-24 23:30 | PTCARENOTE ---
america armendariz aware of mri results and that pt was given brilinta. am[place] stated he made neurology aware.
[2024-01-25] VITALS (26 sets, daily range): BP systolic 96–158; BP diastolic 48–115; PULSE 90; BMI 27.2
--- NOTE | 2024-01-25 00:41 | PTCARENOTE ---
systems reviewed, assessment unchanged.
--- NOTE | 2024-01-25 05:42 | PTCARENOTE ---
Addendum entered by Nicole Duron RN 01/25/24 05:47:
nih 8 due to disorientation see flowshet
Original Note:
pt with increased confusion and disorientation, CESIA Worrell at bedside-pt taken for stat head ct. pt became more coherent, still intermittently confused. pt incontinent of urine. bed alarm on, call sofia within reach. labs sent, ekg completed.
[2024-01-25 05:50] LABS: Hematocrit 36.6 % (37.0-47.0); Hemoglobin 12.9 g/dL (12.0-16.0); Mean Corp Hgb Conc. 35.2 g/dL (33.0-37.0); Mean Corpuscular Hgb 27.9 pg (27.0-31.0); Mean Platelet Volume 8.9 fL (7.4-10.4); Platelet Count 309 10^3/uL (130-400); Red Blood Cell Count 4.63 10^6/uL (4.20-5.40); Red Cell Dist. Width 14.3 % (11.5-14.5); White Blood Cell Count 10.1 10^3/uL (4.8-10.8)
--- NOTE | 2024-01-25 05:57 | PTCARENOTE ---
0430 pt with increased confusion and disorientation, CESIA Worrell at bedside-pt taken for stat head ct. nih 8 due to disorientation see flowsheet pt became more coherent, still intermittently confused. pt incontinent of urine. bed alarm on, call sofia
within reach. labs sent, ekg completed.
[2024-01-25 05:59] LABS: INR 1.07; PT 13.9 Sec (11.4-14.6)
[2024-01-25 06:00] LABS: APTT 28.3 Sec (23.4-35.0)
[2024-01-25 06:18] LABS: Blood Urea Nitrogen 13 mg/dl (7-17); Calcium 9.2 mg/dl (8.4-10.2); Carbon Dioxide 24 mmol/L (22-30); Chloride 102 mmol/L (98-107); Estimated Creatinine Clearance 45 ml/min; Glucose 141 mg/dl (70-99); Potassium 3.8 mmol/L (3.5-5.1); Sodium 139 mmol/L (135-145); eGFR > 60.00
--- NOTE | 2024-01-25 07:31 | W.PN.HOSP.TC ---
Today's Communication/Plan
-
ok to transfer out of ICU
Add metformin
c/w PT
SNF planning if needed
Resume BP medications
Assessment / Plan
Assessment / Plan
Physical Exam
General: comfortable, no respiratory distress
HEENT: NormoCephalic, Anicteric, PERRLA, [place] Conjunctivae, right facial droop
Respiratory: Clear; No Wheezes, Rales or Rhonchi
Cardiac: S1/S2
GI: Soft, Non Tender, Non Distended, Normal Bowel Sounds
Rectal: No rectal bleeding
Genito-urinary: No [place]
Musculoskeletal: No Clubbing, No Cyanosis and No Edema
Skin: Warm and Dry; No Rash
Neuro: Awake, Alert, Oriented to self and surroundings, no slurred Speech, right facial droop, no pronator drift, she followed commands. Gait not assessed
Psych: Calm
#Acute bilateral strokes
She presented with sudden onset of slurred speech and with left-sided weakness, s/p TNK given in ER 01/23/24
PMH large right MCA infarct 07/30/2020
MRI showed numerous acute cortical infarct foci are demonstrated involving the right temporal lobe, insular cortex, parietal lobe, and right periventricular white matter. There is also a small left cerebellar acute infarct. There is a large right
parietal infarct focus measuring 2 cm, which is associated with petechial hemorrhage. Severe diffuse bilateral confluent white matter leukoariosis. Few small right frontal white matter chronic lacunar infarcts. Small chronic right cerebellar
infarct. Advanced global atrophy.
She feels better, speech seems fluent. Denies headache or chest pain, feels arms are normal now
-Held Brilinta 90 mg twice daily and resumed PM dose 01/23
-PT/OT/Speech consulted
- Repeat CT head post TX showed stable findings.
Echo showed LVEF 60-70%
- Moderate dementia with other behavioral disturbance per records.
- Appreciate neurology input
# Leukocytosis, reactive
# Recurrent major depressive disorder. Continue with venlafaxine, quetiapine and trazodone.
d/w daughter, important to c/w her meds, she used to have problems at night with inability to sleep
#Ex-smoker
#History of PE.
# Hx loop recorder 2016
#HTN�benign
s/p permissive HTN
Resume amlodipine
#HLD
-Continue atorvastatin 80 mg every afternoon
#DM 2
Poorly controlled. HGB A1C 9
Resumed Glimepiride, add metformin
Accu-Cheks with SSI,
#GERD
Continue Nexium 20 mg daily or equivalent
#Constipation hx
-Monitor bowel movements
Other PMH:
fecal incontinence,
renal calculi history of laser lithotripsy ureteroscopy
DVT prophylaxis
SCDs given patient received TNK
Total time spent to see the patient, examine the patient on the floor, review data and lab results, discuss the treatment plan with the patient, daughter, nursing staff around 55 minutes
Anticipated Discharge: 24 - 48 hours
Subjective/Interval History
-
Date of Service: January 25, 2024
No events over night
Objective Data
-
Labs:
Laboratory Results
01/25/24
05:36
WBC 10.1
Hgb 12.9
Hct 36.6 L
Plt Count 309
PT 13.9
INR 1.07
APTT 28.3
Sodium 139
Potassium 3.8
Chloride 102
Carbon Dioxide 24
BUN 13
Creatinine 0.9
Glucose 141 H
Calcium 9.2
Vital Signs:
Vital Signs
Temp Pulse Resp BP Pulse Ox
99.0 F 75 22 144/96 95
01/24/24 19:45 01/25/24 06:00 01/25/24 06:00 01/25/24 06:00 01/25/24 06:00
I&O
01/24/24 01/25/24 01/26/24
06:59 06:59 06:59
Intake Total
Balance
--- NOTE | 2024-01-25 07:51 | PTCARENOTE ---
Received pt awake and alert.NIHSS completed with outgoing RN.+ slight facial droop noted.+ left field cut.Occasional confused answer to question.Pt stated it was 2003.Denies pain.SR noted.POX 98% on /ra.Decreased breath sounds bibasilar.No BM.Has
not voided at this time.Pt's daughter at bedside.Plan of care discussed with the pt and her daughter.
[2024-01-25 08:09] LABS: Glucose - Point of Care 140 mg/dl (70-99)
[2024-01-25] MEDS: NOVOLOG FLEXPEN-MODERATE RESISTANCE SC (08:14)
--- NOTE | 2024-01-25 08:18 | W.PN.CD ---
Today's Communication / Plan
-
Looks good. Should do great with rehab
Impression / Plan
-
CVA - acute s/p TNK given in the ER.
-Significant improvement . NIHSS now 3. Will do great with rehab
- Head/neck CTA: right middle cerebral artery filling defect in the P2 segment, consistent with nonocclusive thrombus.
- MRI shows multiple R hemispheric infarcts, small L cerebellar infarct
- prior large right MCA infarct on brain MRI 07/2020.
- LINQ implanted 03/2017, no arrhythmias/no Afib seen, explanted 01/2021.
- echo shows Normal LV function, mild to mod (mean grad <10, DONG 1.2)
- on Brilinta 90mg BID, but currently on hold since given TNK.
- antiplatelet therapy per Neurology.
- on Lipitor 80mg with LDL 170, goal LDL < 70, add Zetia now and discuss PCSK9i as an outpatient. Strongly doubt compliance with atorvastatin 80 with LDL 170
- will need outpatient 2 week monitoring and follow up.
HTN
-Follow for now
Mitral regurgitation - stable.
- mild on echo, monitor.
-Mild to moderate by echo with normal LVEF
-Will need to follow annually
Wbv-lvkaftm-iciyspran diabetes - poorly controlled with hemoglobin A1c 9.2% on labs 01/18/24.
- managed by PCP
Syncopal episode - December 2016.
- No recurrence.
- Echo, telemetry, and EP study negative.
- LINQ implant, no arrhythmias seen on routine outpatient device checks, explanted LINQ 01/2021.
Physical Exam
Vital Signs/Labs
Vital Signs
Temp Pulse Resp BP Pulse Ox
98.1 F 73 20 132/78 98
01/25/24 08:00 01/25/24 07:00 01/25/24 07:00 01/25/24 07:00 01/25/24 07:48
01/24/24 01/25/24 01/26/24
06:59 06:59 06:59
Actual Weight 154 lb 5.177 oz 148 lb 5.938 oz
01/25/24 05:36
01/25/24 05:36
PT 13.9 Sec (11.4-14.6) 01/25/24 05:36
INR 1.07 01/25/24 05:36
APTT 28.3 Sec (23.4-35.0) 01/25/24 05:36
Magnesium 2.1 mg/dl (1.6-2.3) 01/24/24 04:08
Triglycerides 266 mg/dl (10-149) H 01/24/24 04:08
LDL Cholesterol, Calc 170 mg/dl 01/24/24 04:08
VLDL Cholesterol, Calc 53 mg/dl (0-30) H 01/24/24 04:08
HDL Cholesterol 51 mg/dl 01/24/24 04:08
Physical Exam
Constitutional: No acute distress and Comfortable
Cardiovascular: Rhythm & rate is regular and Systolic murmur present (2/6 mid peaking murmur)
Respiratory: Respiratory effort normal, Lungs clear to auscul., Wheeze Absent and Crackles Absent
GI: Soft and Non tender
Neuro/Psych: AO x 3 and Other (motor strength 4/4 UE and LE. Some mild discoordination of LUE/LLE)
Data Reviewed
-
Date of Service: January 25, 2024
[2024-01-25] MEDS: GLUCOPHAGE 1000 MG PO ×2 (08:41→17:11)
[2024-01-25] MEDS: NORVASC 5 MG PO (08:41)
[2024-01-25] MEDS: EFFEXOR XR 225 MG PO (08:41)
[2024-01-25] MEDS: AMARYL 1 MG PO ×2 (08:41→17:11)
[2024-01-25] MEDS: DESENEX/MITRAZOL/ZEASORB 1 APPLIC TOPICAL ×2 (08:42→19:53)
--- NOTE | 2024-01-25 08:49 | PTCARENOTE ---
Pt assisted OOB to bathroom then chair.Gait is shuffling.AM care completed.Pt voided in toilet.
--- NOTE | 2024-01-25 08:57 | W.PN.INTV ---
Addendum entered and electronically signed by Teodoro Austin MD 01/25/24 11:39:
Patient seen and examined independently from resident. Agree with below assessment
Patient is comfortable, sitting in chair, without complaints. Denies headache, shortness of breath, nausea
Events overnight noted. Repeat CT imaging with no progression of disease in the setting of confusion
Neuroexam nonfocal. Mild left facial droop noted
Data reviewed
Moving forward
Continue with management, supportive
Follow neurological exam
Resume Brilinta at discretion of neurology, currently held
Blood sugars improved, oral regimen resumed. Continue with insulin sliding scale
Given multiple infarcts, echocardiogram noted, aortic stenosis.
Patient with prior history of arrhythmia in 2016 with extensive monitoring, no arrhythmias noted between 2016 and 2020
Follow-up with cardiology as outpatient
Do suspect sleep disordered breathing given nocturnal hypoxia at night. Given history of recurrent strokes, this can be assessed as outpatient. Information left in chart if agreeable to outpatient sleep apnea evaluation
Okay for transfer out of ICU. We will sign off. Please call with questions
Original Note:
Today's Communication / Plan
Recommendations
Patient is hemodynamically stable at the present time and will likely be transferred out of the ICU later today if current patient trajectory continues and if the patient is cleared by neurology. Recommend PTOT/rehab. Recommend outpatient
evaluation for possible obstructive sleep apnea.
Assessment
-
78-year-old female with history of stroke x 2, right MCA 2020 with small subdural hematoma, hypertension, diabetes, presents with acute onset of slurred speech and left-sided weakness. Initial imaging unremarkable. Patient was given tPA. Patient
also required intermittent labetalol for hypertension. We are asked to help from critical care standpoint 01/24/2024
-Acute CVA, Rt MCA
Slurred speech, left-sided weakness
s/p TNK on 2246
NIH 12 level on presentation
Possible small right M2 thrombus per CTA
-History of stroke x 2
2020 with small subdural hematoma
-Prolonged QT, per EKG
-Mitral Regurgitation
-Aortic Stenosis
-Non-Insulin Dependent Diabetes
Conditions present prior to admission
Hypertension/hyperlipidemia
Diabetes
GERD
History of falls
Gait disturbance
History of depression
Plan/recommendations
At this time, patient appears to be improved, NIH has improved to 3 on 01/25/24
Mild left facial droop noted, remainder of exam unchanged since day prior
Patient will be likely downgraded today if current trajectory continues and if cleared by neurology
Patient had an episode of acute confusion at around 4:30 in the morning and a stat CT head was ordered showing no acute intracranial hemorrhage and showed scattered acute/subacute infarcts
She also had moments where her blood oxygenation dipped into the 80s while sleeping. Further evaluation for obstructive sleep apnea may be warranted.
Moving forward
Continue with management per stroke protocol
Appreciate neurology assessment
Brilinta given overnight but upon status change and confusion early overnight a stat CT head was ordered. CT showed no acute intracranial hemorrhage and showed scattered acute/subacute infarcts. Brilinta again held.
Repeat imaging without any acute findings
Labile blood pressure continues ranging from 100s to 158 SBP. Labetalol continued.
Target systolic pressure 140-180, diastolic less than 105
Patient on oral antihypertensive therapy - still held
History of Linq implant 2016, negative for arrhythmias, explanted 2020
Recent echo 01/16/2024 with normal biventricular function, mild MR
Appreciate cardiology recommendations
Hyperlipidemia therapy noted -goal LDL less than 70
Hyperglycemia noted - poorly controlled -metformin added - hemoglobin A1c was 9.2% on labs drawn on 01/18/2024
Resume oral regimen
Speech and swallow evaluation, diet is a 1800-calorie diabetic diet
Sliding scale for now
Patiently currently on SCDs
Patient with snoring history. Given history of recurrent stroke, consider outpatient sleep workup if agreeable
This will be an ongoing discussion
Of note, states the patient is DNR. Will need to clarify and confirm. states documents show patient is DNR, does not want CPR or mechanical ventilation
Data:
Head CT conducted on 01/25/24 (in AM): No acute intracranial hemorrhage. Scattered acute/subacute infarcts better visualized by MRI. The ventricles are normal in size, configuration, and position for age. There is no intra- or extra-axial mass,
hemorrhage, or fluid collection. Redemonstration of old infarcts involving the right parieto-occipital and left occipital regions and right cerebellum. Superimposed acute/subacute infarction in the right parieto-occipital region and additional
acute/subacute cortical and left cerebellar infarcts are better appreciated by MRI. Small bilateral lacunar infarcts redemonstrated. No new areas of abnormal mass effect or attenuation are noted. There is stable moderate to severe subcortical,
deep, and periventricular white matter low-attenuation, compatible with changes of chronic small vessel ischemic disease. Visualized paranasal sinuses are free of mucosal disease. No depressed calvarial fracture.
MRI conducted on 01/24/24: Limited by motion degradation. Numerous acute cortical infarct foci are demonstrated involving the right temporal lobe, insular cortex, parietal lobe, and right periventricular white matter. There is also a small left
cerebellar acute infarct. There is a large right parietal infarct focus measuring 2 cm, which is associated with petechial hemorrhage. No mass effect. No midline shift. Severe diffuse bilateral confluent white matter leukoariosis. Few small right
frontal white matter chronic lacunar infarcts. Small chronic right cerebellar infarct. Advanced global atrophy.
CXR conducted on 01/24/2024: No evidence of active cardiopulmonary disease. The lungs appear clear for portable AP technique. Cardiac silhouette and vascular markings appear within normal limits with no evidence for pulmonary edema or pleural
effusion. There is calcification of the thoracic aorta, which appears radiographically stable. Right shoulder prosthesis is present.
Head CT conducted on 01/24/24: No evidence of acute intracranial abnormality. Stable findings of multiple regions of old infarction. Moderate diffuse atrophy. Moderate to severe leukomalacia.
Head/Neck CTA conducted on 01/23/24: Right proximal ICA moderate to large mixed noncalcified and calcified plaque, with estimated luminal diameter reduction of approximately 50%. No occlusion. No dissection. Left ICA mild noncalcified plaque.
Estimated luminal diameter reduction less than 50%. No occlusion. No dissection. No [place] of [place] region aneurysm, stenosis, or occlusion. Right middle cerebral artery 3 mm filling defect in the P2 segment with contrast enhancement distal to the
filling defect, consistent with nonocclusive thrombus.
Head CT conducted on 01/23/24: No acute intracranial abnormality noted. Specifically, no definite evidence to suggest acute large vascular territory transcortical infarct at this time. However, limited by extensive chronic ischemic change and numerous
old infarcts. No acute intracranial hemorrhage. Advanced global atrophy.
Subjective Dataa
Subjective Data
Date of Service:
Date of Service: January 25, 2024
Met with patient at the bedside. She is calm and pleasant in discussion and was seen eating her breakfast. She offers no complaints at the present time and states that she feels like she is slowly getting better.
Review of Systems
Neuro: Weakness (Right facial weakness)
Objective Data
Data Reviewed
Vital Signs / I&O / Oxygen:
Vital Signs
Temp Pulse Resp BP Pulse Ox
98.1 F 74 18 158/85 94
01/25/24 08:00 01/25/24 08:00 01/25/24 08:00 01/25/24 08:00 01/25/24 08:00
Intake and Output
01/24/24 01/25/24 01/26/24
06:59 06:59 06:59
Intake Total 240 / 240
Balance 10 240 / 240
SaO2 94
Nasal Cannula flow liters per 2
minute
Physical Exam
General: Comfortable
HEENT: Normocephalic
Cardiovascular: Regular Rhythm
Respiratory: Clear
GI: Soft
Skin: Warm, Dry and Good Color
Labs/Micro/Reports
Lab Data
01/25/24 05:36
01/25/24 05:36
Laboratory Results
01/25/24
05:36
PT 13.9
INR 1.07
APTT 28.3
[2024-01-25] MEDS: NOVOLOG FLEXPEN-MODERATE RESISTANCE 1 UNITS SC ×2 (11:45→16:46)
[2024-01-25 11:55] LABS: Glucose - Point of Care 172 mg/dl (70-99)
--- NOTE | 2024-01-25 12:09 | PTCARENOTE ---
Pt assessed.No change in assessment noted.
--- NOTE | 2024-01-25 14:17 | W.PN.NEURO.1 ---
Today's Communication / Plan
-
78 year old right) handed female) who has presented to the hospital with (chief complaint) of left-sided weakness and slurred speech at 845 PM. She gives a history of hypertension hyperlipidemia diabetes GERD right MCA infarct with left hemiparesis
that resolved with residual cognitive issues secondary to small vessel disease and vascular insufficiency and a small subdural the year before who suffered a new Right MCA embolic CVA with slurred speech and left sided weakness that has resolved
after TNK infusion
PLAN:
Discharge on Brilinta 90 mg BID
PT/OT
Strict BP control
Lipitor 80 mg BID
Neuro Assessment/Plan
Assessment
78 year old right handed female who has presented to the hospital with (chief complaint) of left-sided weakness and slurred speech at 845 PM. She gives a history of hypertension hyperlipidemia diabetes GERD right MCA infarct with left hemiparesis
that resolved with residual cognitive issues secondary to small vessel disease and vascular insufficiency and a small subdural the year before. She was watching TV with her and became nauseated and tried to stand up to go to the bathroom.
Her noted that her speech was slurred and that she had difficulty using the left side. He then called EMS when her speech impediment persisted.
Plan
Brilinta 90 mg BID
Subjective/Objective
Subjective Data
Date of Service: January 25, 2024
Mrs Michaels doing well today. She has no new complaints
Objective Data
Vital Signs
Temp Pulse Resp BP Pulse Ox
36.7 C 85 25 127/91 94
01/25/24 08:00 01/25/24 14:00 01/25/24 14:00 01/25/24 13:01 01/25/24 08:00
Lab Results
01/25/24 05:36
01/25/24 05:36
PT 13.9 Sec (11.4-14.6) 01/25/24 05:36
INR 1.07 01/25/24 05:36
APTT 28.3 Sec (23.4-35.0) 01/25/24 05:36
Sodium 139 mmol/L (135-145) 01/25/24 05:36
Potassium 3.8 mmol/L (3.5-5.1) 01/25/24 05:36
BUN 13 mg/dl (7-17) 01/25/24 05:36
Glucose 141 mg/dl (70-99) H 01/25/24 05:36
Calcium 9.2 mg/dl (8.4-10.2) 01/25/24 05:36
Phosphorus 4.5 mg/dl (2.5-4.5) 01/24/24 04:08
LDL Cholesterol, Calc 170 mg/dl 01/24/24 04:08
Patient Allergies
No Known Allergies Allergy (Verified 05/29/23 07:56)
Physical Exam
-
General: Well Developed, Well Nourished, No Apparent Distress and Comfortable
Eyes: Able to visualize OU, Unremarkable, Round OU, No Ptosis and PERRLA
HEENT: Normocephalic, Atraumatic and Anicteric
Neck: No Bruits Bilaterally
Respiratory: Clear to Auscultation
Cardiac: Regular Rhythm and No Murmur
GI: Normal Bowel Sounds
Skin: Unremarkable
Extremities: No Clubbing, No Cyanosis and No Edema
Psych: Unremarkable
Extended Neurological Exam
Mood & Affect: Mood Unremarkable and Affect Unremarkable
Attention Span & Concentration: Awake, Alert and No Difficulty with 2 Step Request
Memory: Reduced
Tremor: Hand Tremor Absent and Head Tremor Absent
Involuntary Movement: None
Speech: Quality Unremarkable and Quantity Unremarkable
Cranial Nerve II: Left Eye: Pupillary Reactivity Unremarkable, Pupillary Size Unremarkable and Visual [place] Grossly Intact
Cranial Nerve II: Right Eye: Pupillary Reactivity Unremarkable, Pupillary Size Unremarkable, Visual [place] Grossly Intact and Visual [place] Intact
Cranial Nerves III, IV, : Extraocular Movement: Extraocular Movement Full in all Directions
Cranial Nerve V: Facial Sensation: Intact to Light Touch
Cranial Nerve VII: Facial Symmetry: Normal Facial Symmetry
Cranial Nerve VIII: Hearing: Unremarkable Hearing to Normal Conversational Volume
Cranial Nerves IX, X: Palate Movement: Palate Elevation Symmetric
Cranial Nerve XI: Shoulder Shrug: Unremarkable
Cranial Nerve XII: Tongue Protusion: Midline
Muscle Strength, Overall: Full Throughout
Muscle Bulk & Tone: Bulk Unremarkable
Pronator Drift: No Drift in Upper Extremities and No Drift in Lower Extremities
Deep Tendon Reflexes: Unremarkable Throughout and Otherwise Unremarkable
Cold Sensation: Unremarkable
Vibration Sensation: Unremarkable
Touch Sensation: Unremarkable
Coordination: [id number] Testing Unremarkable
Babinski Sign: Present on Left
Gait & Station: Up from Seated Without Problem, Up from Lying with Difficulty and Romberg Test Positive
Modified [place] Score (MRS)
-
Modified [place] Scale (mRS): Moderate disability. Requires some help, able to walk unassisted.
Score: 3
--- NOTE | 2024-01-25 14:50 | CM ---
Reviewed the chart notes. PT recommending acute rehab. PMR consulted. CM continues to be available to patient/family and is monitoring medical plan for needs at discharge.
Plan: Discharge plans will depend on the patient's progress and PMR evaluation. Precert will be required for acute rehab.
--- NOTE | 2024-01-25 15:02 | PTOTSP ---
ST Follow-Up
Pt continues to present with at least a moderate cognitive linguistic impairment characterized by particularly noticeable deficits in attention and memory.
Pt continues to present with clinical signs consistent with mild oropharyngeal dysphagia characterized by disorganized self-feeding, prolonged mastication, oral residue, and variations in vocal quality that could be indicative of airway invasion.
Recommendations:
- Continue with regular solids (choose soft) and thin liquids, meds as tolerated.
- General aspiration precautions: small bites/sips; alternate bites/sips; no talking while eating/drinking; clear throat when wet vocal quality.
- [employer] DES[employer]ER to f/u re: diet tolerance and use of compensatory strategies.
- ANIME DESIGNER to f/u re: tx of speech, voice, language, and cognitive communication deficits.
- Pt would benefit from continued ANIME DESIGNER services upon d/c at the inpatient level of care.
--- NOTE | 2024-01-25 16:04 | PTCARENOTE ---
Pt assessed.No change in assessment noted.
--- NOTE | 2024-01-25 16:39 | PTCARENOTE ---
Pt assisted back to bed.
[2024-01-25 16:55] LABS: Glucose - Point of Care 186 mg/dl (70-99)
[2024-01-25] MEDS: LIPITOR 80 MG PO (17:11)
[2024-01-25] MEDS: BRILINTA 90 MG PO (19:53)
--- NOTE | 2024-01-25 20:00 | PTCARENOTE ---
Addendum entered by Dorita Templeton RN 01/25/24 22:46:
Bed alarm on
Original Note:
Rec'd pt resting in bed, oriented, follows commands, NIH 2, slight facial droop, slight eft visual field cut, assisted to bsc w/ help of 1- sat for 15min, then back to bed, SR, weak distal pulses, no edema, skin warm/dry, RA, lungs decr in bases,
sat 95, + bowel sounds, no bm, abd soft, no n/v, inc of urine, buffy care given, attends applied
[2024-01-25] MEDS: SEROQUEL 25 MG PO (21:27)
[2024-01-25] MEDS: ZETIA 10 MG PO (21:27)
[2024-01-25] MEDS: DESYREL 50 MG PO (21:27)
[2024-01-25 21:36] LABS: Glucose - Point of Care 89 mg/dl (70-99)
--- NOTE | 2024-01-25 23:49 | PTCARENOTE ---
drowsy but arousable, Josh at 3mm, CHATA ALVES bath done, linens changed, inc of urine, attends changed
[2024-01-26] VITALS (15 sets, daily range): BP systolic 100–143; BP diastolic 63–127; PULSE 85–90; O2SAT 95; BMI 28.1
--- NOTE | 2024-01-26 07:37 | W.PN.HOSP.TC ---
Today's Communication/Plan
-
Will reach out to Dr Cifuentes today
Assessment / Plan
Assessment / Plan
Physical Exam
General: comfortable, no respiratory distress
HEENT: NormoCephalic, Anicteric, PERRLA, [place] Conjunctivae, right facial droop
Respiratory: Clear; No Wheezes, Rales or Rhonchi
Cardiac: S1/S2
GI: Soft, Non Tender, Non Distended, Normal Bowel Sounds
Rectal: No rectal bleeding
Genito-urinary: No Pepe
Musculoskeletal: No Clubbing, No Cyanosis and No Edema
Skin: Warm and Dry; No Rash
Neuro: Awake, Alert, Oriented to self and surroundings, no slurred Speech, right facial droop, no pronator drift, she followed commands. Gait not assessed
Psych: Calm
#Acute bilateral strokes
She presented with sudden onset of slurred speech and with left-sided weakness, s/p TNK given in ER 01/23/24
PMH large right MCA infarct 07/30/2020
MRI showed numerous acute cortical infarct foci are demonstrated involving the right temporal lobe, insular cortex, parietal lobe, and right periventricular white matter. There is also a small left cerebellar acute infarct. There is a large right
parietal infarct focus measuring 2 cm, which is associated with petechial hemorrhage. Severe diffuse bilateral confluent white matter leukoariosis. Few small right frontal white matter chronic lacunar infarcts. Small chronic right cerebellar
infarct. Advanced global atrophy.
She feels better, speech seems fluent. Denies headache or chest pain, feels arms are normal now
-Held Brilinta 90 mg twice daily and resumed PM dose 01/23
-PT/OT/Speech consulted
- Repeat CT head post TX showed stable findings.
Echo showed LVEF 60-70%
- Moderate dementia with other behavioral disturbance per records.
- Appreciate neurology input
# Leukocytosis, reactive
# Recurrent major depressive disorder. Continue with venlafaxine, quetiapine and trazodone.
d/w daughter, important to c/w her meds, she used to have problems at night with inability to sleep
#Ex-smoker
#History of PE.
# Hx loop recorder 2016
#HTN�benign
s/p permissive HTN
Resume amlodipine
#HLD
-Continue atorvastatin 80 mg every afternoon
#DM 2
Poorly controlled. HGB A1C 9
Resumed Glimepiride, add metformin
Accu-Cheks with SSI,
#GERD
Continue Nexium 20 mg daily or equivalent
#Constipation hx
-Monitor bowel movements
Other PMH:
fecal incontinence,
renal calculi history of laser lithotripsy ureteroscopy
DVT prophylaxis
SCDs given patient received TNK
Total time spent to see the patient, examine the patient on the floor, review data and lab results, discuss the treatment plan with the patient, daughter, nursing staff around 55 minutes
Anticipated Discharge: Today
Subjective/Interval History
-
Date of Service: January 26, 2024
No events over night
Objective Data
-
Vital Signs:
Vital Signs
Temp Pulse Resp BP Pulse Ox
97.5 F 83 18 142/89 94
01/26/24 04:00 01/26/24 06:31 01/26/24 06:31 01/26/24 06:31 01/26/24 00:00
I&O
01/25/24 01/26/24 01/27/24
06:59 06:59 06:59
Intake Total 560 / 560
Balance 560 / 560
[2024-01-26] MEDS: NOVOLOG FLEXPEN-MODERATE RESISTANCE SC ×3 (08:29→17:05)
[2024-01-26] MEDS: GLUCOPHAGE 1000 MG PO ×2 (08:29→17:06)
[2024-01-26] MEDS: DESENEX/MITRAZOL/ZEASORB 1 APPLIC TOPICAL (08:29)
[2024-01-26] MEDS: EFFEXOR XR 225 MG PO (08:29)
[2024-01-26] MEDS: AMARYL 1 MG PO ×2 (08:29→17:06)
[2024-01-26] MEDS: NORVASC 5 MG PO (08:29)
[2024-01-26] MEDS: BRILINTA 90 MG PO ×2 (08:29→21:02)
--- NOTE | 2024-01-26 08:30 | PTCARENOTE ---
Received pt. @ change of shift. [facility] completed w off going RN- marked as a 2 for L sided facial droop and L visual cut- see flow sheet. Oriented x3, forgetful. SR on monitor. SpO2 95% on RA. +BS, abd soft/round. Inc b/b @ x's, other x's cont.
Assisted x 2 OOB to chair w RW, generalized weakness. Assisted w AM hygiene. Chair alarm active. Instructed on how to report care concerns and call kimberlyn peace in reach. Pt.'s to bedside this AM, updated on plan of care.
[2024-01-26 08:38] LABS: Glucose - Point of Care 99 mg/dl (70-99)
--- NOTE | 2024-01-26 09:17 | CON.MD ---
Documented by User: Sarah Vance MD, Resident 01/26/24 17:16
Consultation - Medical
-
Referring Provider: Dia Mejía MD
Chief Complaint: CVA
History of Present Illness: 78 year-old right hand dominant female with PMH of HLD, NIDDM, fecal incontinence, CVA, syncope, subdural hematoma presented to ER on 01/23/24 complaining from worsened left sided weakness and slurred speech from her
previous weakness. The patient received TNK treatment at ER. Today the patient was seen in her bed and her family reported she is better comparing to yesterday.
Per chart review: Head/Neck CTA (01/23/24) showed Right middle cerebral artery 3 mm filling defect in the P2 segment with contrast enhancement distal to the filling defect, consistent with nonocclusive thrombus. Her previous records showed that she
had CVA in 2020 resulting with left sided weakness. And she also had a subdural hematoma after hitting her head on 04/02/22. At that time, She had been transferred to [place] and had been given DDAVP and Keppra. Repeat imaging per neurosurgery
with no worsening of the subdural hematoma and no surgical intervention needed in 2021.
Past Medical History: HLD, NIDDM, fecal incontinence, CVA 2020, syncope, 2021 subdural hematoma
Procedure History: Appendectomy, cholecystectomy, bilateral knee replacements, right shoulder replacement, cataracts, LINQ, Loop recorder
Family History: Mother with COPD, father with brain cancer
Social History:
Functional Level Premorbidly: Independent, has rolling walker
Functional Level Currently: Transfer: Sit to stand- Minimal assistance/ Stand to sit- Minimal assistance/ Ambulation: Patient ambulated 80' with RW and
min A x
Tobacco: Denies
Alcohol: Denies
Drug use: Denies
Lives with: Spouse
24-hour assistance available: Yes
Number of floors: 1
# steps to enter: 1
Driving: Yes
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
Allergies
Allergy/AdvReac Type Severity Reaction Status Date / Time
No Known Allergies Allergy Verified 05/29/23 07:56
Home Medications
acetaminophen 500 mg tablet 1,000 mg PO Q8HPRN PRN mild pain 04/08/22
amlodipine 5 mg tablet 5 mg PO DAILY #90 tabs 04/22/22
venlafaxine 75 mg capsule,extended release 24 hr 225 mg (3 x 75 mg) PO DAILY #90 caps 04/22/22
atorvastatin 80 mg tablet 80 mg PO QPM High Cholesterol 01/23/24
clotrimazole 1 % topical cream 1 applic topical BID diaper rash 01/23/24
esomeprazole magnesium 20 mg capsule,delayed release (Nexium) 20 mg PO DAILYPRN PRN gerd 01/23/24
estradiol 0.01% (0.1 mg/gram) vaginal cream 1 appful vaginal TUFR Hormonal Agent 01/23/24
glimepiride 1 mg tablet 1 mg PO BID Diabetes 01/23/24
quetiapine 25 mg tablet (Seroquel) 25 mg PO HS Mental Health/Anxiety 01/23/24
trazodone 50 mg tablet 50 mg PO HS Sleep 01/23/24
ticagrelor 90 mg tablet (Brilinta) 90 mg PO BID Blood Clot Prevention/Tx 01/24/24
Review of Systems:
Constitutional: (x) Normal _
Eye: (x) Normal _
Ear/Nose/Throat: (x) Normal _
Respiratory: (x) Normal _
Cardiovascular: Cardiology is planning to monitor for possible cardiac arrhythmia
Gastrointestinal: (x) Normal _
Genitourinary: (x) Some incontinency with urinating. No burning or increased frequency.
Musculoskeletal: (x) Left sided weakness due CVA
Integumentary: (x) Normal _
Neurologic: (x) Recurrent CVA, some confusion
Psychiatric: (x) Normal _
Endocrine: (x) Normal _
Hematologic/Lymphatic: (x) Normal _
Allergic/Immunologic: (x) Normal _
Vitals:
Vital Signs
Temp Pulse Resp BP Pulse Ox
97.6 F 83 18 142/89 95
01/26/24 08:00 01/26/24 06:31 01/26/24 06:31 01/26/24 06:31 01/26/24 08:45
Physical Exam:
General Appearance/Observation: Well-developed, well-nourished female in no apparent distress.
Pain/Comfort Assessment: Denies
Mood/Affect: Appropriate
Integumentary/Operative Site:
Pressure Ulcer: absent over heels
Eyes: Conjunctiva/Lids: normal Pupils: pupils equal round and reactive to light and Accommodation
Ears/Nose/Throat: oral mucosa moist, throat clear. Lips/Teeth/Gums: normal
Neck: No muscle spasm or tenderness
Cardiovascular: Heart: regular, no murmur
Pulses: dorsalis pedis 1+ bilaterally
Respiratory: Respiratory Effort/Chest Expansion: normal Auscultation: Clear to auscultation bilaterally
Gastrointestinal: abdomen not tender, no distension, normal abdominal bowel sounds
Genitourinary: No Pepe
Extremities: Edema: Mild bilateral nonpitting edema cyanosis: None Trophic changes: None
Neurology Exam:
Orientation: Alert, Oriented to self, Time, Place
Memory: Intact for immediate , not intact at 5 minutes
Repetition: Intact
Two step command: has some difficulty to obey 2 words commands in this morning. She understood and obeyed the 2 words commands easily afternoon.
Naming: Intact
Cranial Nerves:
CNII: Pupillary light reflex: Intact Visual Field: Impaired over left visual field with neglect.
CN III, IV, : Extraocular muscles: Intact
CN V: Facial Sensation at Forehead: Intact , Maxilla: Intact, Mandible: Intact
CN VII: Facial movement: Slight Weakness on the left side of the face.
CN VIII: Hearing: Normal
CN IX/X: Speech & swallow: Normal, Position of Uvula: Midline
CN XI: Shoulder shrug: Symmetric
CN XII: Tongue protrusion: Midline
Sensory:
Light touch: Intact in bilateral upper and lower extremities. Left upper and lower extremity with extinction to double simultaneous stimulation
Reflexes:
Biceps: 2+ bilaterally
Brachioradialis: 2+ bilaterally
Triceps: 2+ bilaterally
Patellar: 2+ bilaterally
Achilles: 2+ bilaterally
Babinski: Downgoing bilaterally
Clonus: None
Bj: Negative right, positive left
Cerebellar: Dysmetria/Ataxia: Present on the left, not on right
Musculoskeletal:
Motor: (Manual muscle scale 0-5)
Muscle SA EF WE EE FF FA HF KE DF EHL PF
Right 5 5 5 5 5 5 5 5 5 5 5
Left 4 4 4 4 4 4 4 4 4 4 5
Tone: Normal in all extremities
Range of Motion: Passively within normal limits in all extremities
Lab Results
Laboratory Data
PT 13.9 Sec (11.4-14.6) 01/25/24 05:36
APTT 28.3 Sec (23.4-35.0) 01/25/24 05:36
Total Bilirubin 0.3 mg/dl (0.2-1.3) 01/23/24 22:27
AST 24 U/L (14-36) 01/23/24 22:27
ALT 17 U/L (0-35) 01/23/24 22:27
Alkaline Phosphatase 86 U/L (38-126) 01/23/24 22:27
Lab Results - Hematology
01/23/24 01/24/24 01/25/24
22:27 04:08 05:36
WBC 9.8 12.5 H 10.1
Lab Results - Chemistry
01/23/24 01/24/24 01/25/24
22:27 04:08 05:36
BUN 15 14 13
Creatinine 0.8 0.8 0.9
Estimated Creat Clear 52 51 45
Albumin 3.8
Diagnostic Results: as per HPI
Head CT 04/02/22 IMPRESSION:
There is 4 mm in diameter acute/subacute frontoparietal parafalcine subdural hematoma. There is old 3 cm right posterior parietal infarct just above the temporoparietal junction. There is diffuse cortical atrophy with nonspecific white matter
changes as described above.
Head CT 01/23/24: IMPRESSION:
No acute intracranial abnormality noted. Specifically, no definite evidence to suggest acute large vascular territory transcortical infarct at this time. However, limited by extensive chronic ischemic change and numerous old infarcts. No acute
intracranial hemorrhage. Advanced global atrophy.
Head/Neck CTA 01/23/24: IMPRESSION:
Right proximal ICA moderate to large mixed noncalcified and calcified plaque, with estimated luminal diameter reduction of approximately 50%. No occlusion. No dissection. Left ICA mild noncalcified plaque. Estimated luminal diameter reduction less
than 50%. No occlusion. No dissection. No [place] region aneurysm, stenosis, or occlusion. Right middle cerebral artery 3 mm filling defect in the P2 segment with contrast enhancement distal to the filling defect, consistent with
nonocclusive thrombus.
Assessment:
78 year old female who presented ER with a recurrent CVA for which she received TNK ON 01/23/24. She is complaining from left sided weakness but her spouse reports improvement since she was given TNK. Cardiology is planning to do further studies for
possible cardiac arrhythmia due recurrent stroke.
Plan
PM&R: Acute inpatient rehab with PT/OT/SW/estimator and drafter supervisor/Neuropsych to increase independence with ADLs, improve balance, coordination, endurance, strength, mobility, community reintegration, decreased burden of care on others and family education.
Acute CVA on chronic: Sudden onset of slurred speech and with left-sided weakness, s/p TNK given in ER 01/23/24
-Held Brilinta 90 mg twice daily and resumed PM dose 01/23, statin, and blood pressure control.
Left Neglect: makes patient at increased risk for falls.� Will need therapy to work on scanning of environment for safe navigation.
Cognition: Moderate dementia with other behavioral disturbance per records. Appreciate neurology input
Leukocytosis: reactive, resolved
Recurrent major depressive disorder: venlafaxine, quetiapine and trazodone.
HTN: amlodipine
HLD: atorvastatin 80 mg
DM 2: Poorly controlled. HGB A1C 9. Resumed Glimepiride, add metformin. Accu-Cheks with SSI, diet control
GERD: Nexium 20 mg
Dysarthria: speech evaluation
Dysphagia: Has cognitive concerns with swallowing. Continue to monitor on regular diet.
Constipation hx :Monitor bowel movements.
Bladder/Urinary incontinence : Time void, PVRs, PRN straight cath.
Pulmonary: Incentive spirometry
Skin: monitor for pressure sores/rashes/lesions.
Pain: acetaminophen as needed.
DVT Prophylaxis: Mechanical given patient received TNK
Safety: Continue to reinforce assistance with all transfers.
Code Status:� Full code
Functional and Medical Goals:�Modified Independent with ADL�s, ambulation, transfers
Dispo�(date/plan/equipment needs): Acute Rehab
Please do not hesitate to contact me with any questions or concerns.
Thanks Dr Cifuentes for involving me in this patient`s care.
Sarah Vance MD
Transitional Year Residency Program

Documented by User: Kenny Cifuentes MD 01/26/24 23:40
Consultation - Medical
-
Referring Provider: Dia Mejía MD
Chief Complaint: CVA
History of Present Illness: 78 year-old right hand dominant female with PMH of HLD, NIDDM, fecal incontinence, CVA, syncope, subdural hematoma presented to ER on 01/23/24 complaining from worsened left sided weakness and slurred speech from her
previous weakness. The patient received TNK treatment at ER. Today the patient was seen in her bed and her family reported she is better comparing to yesterday.
Per chart review: Head/Neck CTA (01/23/24) showed Right middle cerebral artery 3 mm filling defect in the P2 segment with contrast enhancement distal to the filling defect, consistent with nonocclusive thrombus. Her previous records showed that she
had CVA in 2020 resulting with left sided weakness. And she also had a subdural hematoma after hitting her head on 04/02/22. At that time, She had been transferred to [place] and had been given DDAVP and Keppra. Repeat imaging per neurosurgery
with no worsening of the subdural hematoma and no surgical intervention needed in 2021.
Past Medical History: HLD, NIDDM, fecal incontinence, CVA 2020, syncope, 2021 subdural hematoma
Procedure History: Appendectomy, cholecystectomy, bilateral knee replacements, right shoulder replacement, cataracts, LINQ, Loop recorder
Family History: Mother with COPD, father with brain cancer
Social History:
Functional Level Premorbidly: Independent, has rolling walker
Functional Level Currently: Transfer: Sit to stand- Minimal assistance/ Stand to sit- Minimal assistance/ Ambulation: Patient ambulated 80' with RW and
min A x
Tobacco: Denies
Alcohol: Denies
Drug use: Denies
Lives with: Spouse
24-hour assistance available: Yes
Number of floors: 1
# steps to enter: 1
Driving: Yes
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
Allergies
Allergy/AdvReac Type Severity Reaction Status Date / Time
No Known Allergies Allergy Verified 05/29/23 07:56
Home Medications
acetaminophen 500 mg tablet 1,000 mg PO Q8HPRN PRN mild pain 04/08/22
amlodipine 5 mg tablet 5 mg PO DAILY #90 tabs 04/22/22
venlafaxine 75 mg capsule,extended release 24 hr 225 mg (3 x 75 mg) PO DAILY #90 caps 04/22/22
atorvastatin 80 mg tablet 80 mg PO QPM High Cholesterol 01/23/24
clotrimazole 1 % topical cream 1 applic topical BID diaper rash 01/23/24
esomeprazole magnesium 20 mg capsule,delayed release (Nexium) 20 mg PO DAILYPRN PRN gerd 01/23/24
estradiol 0.01% (0.1 mg/gram) vaginal cream 1 appful vaginal TUFR Hormonal Agent 01/23/24
glimepiride 1 mg tablet 1 mg PO BID Diabetes 01/23/24
quetiapine 25 mg tablet (Seroquel) 25 mg PO HS Mental Health/Anxiety 01/23/24
trazodone 50 mg tablet 50 mg PO HS Sleep 01/23/24
ticagrelor 90 mg tablet (Brilinta) 90 mg PO BID Blood Clot Prevention/Tx 01/24/24
Review of Systems:
Constitutional: (x) abNormal _ fatigue
Eye: (x) Normal _
Ear/Nose/Throat: (x) Normal _
Respiratory: (x) Normal _
Cardiovascular: Cardiology is planning to monitor for possible cardiac arrhythmia
Gastrointestinal: (x) Normal _
Genitourinary: (x) Some incontinency with urinating. No burning or increased frequency.
Musculoskeletal: (x) Left sided weakness due CVA
Integumentary: (x) Normal _
Neurologic: (x) Recurrent CVA, some confusion
Psychiatric: (x) Normal _
Endocrine: (x) Normal _
Hematologic/Lymphatic: (x) Normal _
Allergic/Immunologic: (x) Normal _
Vitals:
Vital Signs
Temp Pulse Resp BP Pulse Ox
97.6 F 83 18 142/89 95
01/26/24 08:00 01/26/24 06:31 01/26/24 06:31 01/26/24 06:31 01/26/24 08:45
Physical Exam:
General Appearance/Observation: Well-developed, well-nourished female in no apparent distress.
Pain/Comfort Assessment: Denies
Mood/Affect: Appropriate
Integumentary/Operative Site:
Pressure Ulcer: absent over heels
Eyes: Conjunctiva/Lids: normal Pupils: pupils equal round and reactive to light and Accommodation
Ears/Nose/Throat: oral mucosa moist, throat clear. Lips/Teeth/Gums: normal
Neck: No muscle spasm or tenderness
Cardiovascular: Heart: regular, no murmur
Pulses: dorsalis pedis 1+ bilaterally
Respiratory: Respiratory Effort/Chest Expansion: normal Auscultation: Clear to auscultation bilaterally
Gastrointestinal: abdomen not tender, no distension, normal abdominal bowel sounds
Genitourinary: No Pepe
Extremities: Edema: Mild bilateral nonpitting edema cyanosis: None Trophic changes: None
Neurology Exam:
Orientation: Alert, Oriented to self, Time, Place
Memory: Intact for immediate , not intact at 5 minutes
Repetition: Intact
Two step command: has some difficulty to obey 2 words commands in this morning. She understood and obeyed the 2 words commands easily afternoon.
Naming: Intact
Cranial Nerves:
CNII: Pupillary light reflex: Intact Visual Field: Impaired over left visual field with neglect.
CN III, IV, : Extraocular muscles: Intact
CN V: Facial Sensation at Forehead: Intact , Maxilla: Intact, Mandible: Intact
CN VII: Facial movement: Slight Weakness on the left side of the face.
CN VIII: Hearing: Normal
CN IX/X: Speech & swallow: Normal, Position of Uvula: Midline
CN XI: Shoulder shrug: Symmetric
CN XII: Tongue protrusion: Midline
Sensory:
Light touch: Intact in bilateral upper and lower extremities. Left upper and lower extremity with extinction to double simultaneous stimulation
Reflexes:
Biceps: 2+ bilaterally
Brachioradialis: 2+ bilaterally
Triceps: 2+ bilaterally
Patellar: 2+ bilaterally
Achilles: 2+ bilaterally
Babinski: Downgoing bilaterally
Clonus: None
Bj: Negative right, positive left
Cerebellar: Dysmetria/Ataxia: Present on the left, not on right
Musculoskeletal:
Motor: (Manual muscle scale 0-5)
Muscle SA EF WE EE FF FA HF KE DF EHL PF
Right 5 5 5 5 5 5 5 5 5 5 5
Left 4 4 4 4 4 4 4 4 4 4 5
Tone: Normal in all extremities
Range of Motion: Passively within normal limits in all extremities
Lab Results
Laboratory Data
PT 13.9 Sec (11.4-14.6) 01/25/24 05:36
APTT 28.3 Sec (23.4-35.0) 01/25/24 05:36
Total Bilirubin 0.3 mg/dl (0.2-1.3) 01/23/24 22:27
AST 24 U/L (14-36) 01/23/24 22:27
ALT 17 U/L (0-35) 01/23/24 22:27
Alkaline Phosphatase 86 U/L (38-126) 01/23/24 22:27
Lab Results - Hematology
01/23/24 01/24/24 01/25/24
22:27 04:08 05:36
WBC 9.8 12.5 H 10.1
Lab Results - Chemistry
01/23/24 01/24/24 01/25/24
22:27 04:08 05:36
BUN 15 14 13
Creatinine 0.8 0.8 0.9
Estimated Creat Clear 52 51 45
Albumin 3.8
Diagnostic Results: as per HPI
Head CT 04/02/22 IMPRESSION:
There is 4 mm in diameter acute/subacute frontoparietal parafalcine subdural hematoma. There is old 3 cm right posterior parietal infarct just above the temporoparietal junction. There is diffuse cortical atrophy with nonspecific white matter
changes as described above.
Head CT 01/23/24: IMPRESSION:
No acute intracranial abnormality noted. Specifically, no definite evidence to suggest acute large vascular territory transcortical infarct at this time. However, limited by extensive chronic ischemic change and numerous old infarcts. No acute
intracranial hemorrhage. Advanced global atrophy.
Head/Neck CTA 01/23/24: IMPRESSION:
Right proximal ICA moderate to large mixed noncalcified and calcified plaque, with estimated luminal diameter reduction of approximately 50%. No occlusion. No dissection. Left ICA mild noncalcified plaque. Estimated luminal diameter reduction less
than 50%. No occlusion. No dissection. No [place] region aneurysm, stenosis, or occlusion. Right middle cerebral artery 3 mm filling defect in the P2 segment with contrast enhancement distal to the filling defect, consistent with
nonocclusive thrombus.
Assessment:
78 year old female who presented ER with a recurrent CVA for which she received TNK ON 01/23/24. She is complaining from left sided weakness but her spouse reports improvement since she was given TNK. Cardiology is planning to do further studies for
possible cardiac arrhythmia due recurrent stroke.
Plan
PM&R: Acute inpatient rehab with PT/OT/SW/estimator and drafter supervisor/Neuropsych to increase independence with ADLs, improve balance, coordination, endurance, strength, mobility, community reintegration, decreased burden of care on others and family education.
Acute CVA on chronic: Sudden onset of slurred speech and with left-sided weakness, s/p TNK given in ER 01/23/24
-Held Brilinta 90 mg twice daily and resumed PM dose 01/23, statin, and blood pressure control.
Left nondominant hemiparesis: PT/OT, avoid pulling on shoulder joint.
Left Neglect: makes patient at increased risk for falls.� Will need therapy to work on scanning of environment for safe navigation.
Cognition: Moderate dementia with other behavioral disturbance per records. Appreciate neurology input
Leukocytosis: reactive, resolved
Recurrent major depressive disorder: venlafaxine, quetiapine and trazodone.
HTN: amlodipine
HLD: atorvastatin 80 mg
DM 2: Poorly controlled. HGB A1C 9. Resumed Glimepiride, add metformin. Accu-Cheks with SSI, diet control
GERD: Nexium 20 mg
Dysarthria: speech evaluation
Dysphagia: Has cognitive concerns with swallowing. Continue to monitor on regular diet.
Constipation hx :Monitor bowel movements.
Bladder/Urinary incontinence : Time void, PVRs, PRN straight cath.
Pulmonary: Incentive spirometry
Skin: monitor for pressure sores/rashes/lesions.
Pain: acetaminophen as needed.
DVT Prophylaxis: Mechanical given patient received TNK
Safety: Continue to reinforce assistance with all transfers.
Code Status:� Full code
Functional and Medical Goals:�Modified Independent with ADL�s, ambulation, transfers
Dispo�(date/plan/equipment needs): Acute Rehab
Please do not hesitate to contact me with any questions or concerns.
Thanks Dr Cifuentes for involving me in this patient`s care.
Sarah Vance MD
Transitional Year Residency Program
Attending Statement:
I saw and examined the patient today with resident. Reviewed care plan with patient and resident. I agree with the above subjective and physical exam, and plan as documented with adjustments made as necessary. 78-year-old right-handed female
presented with left hemiparesis with concern for stroke and given TNK. Noted to have right MCA infarct with ADL, ambulatory, speech, and swallow dysfunction, she will benefit from acute inpatient rehabilitation program.
[2024-01-26 11:24] LABS: Glucose - Point of Care 147 mg/dl (70-99)
--- NOTE | 2024-01-26 14:35 | CM ---
CM following re: discharge planning.
Reviewed pt's chart, met with pt and pt's at bedside.
According to pt is medically stable to be discharged. Both pt and her are aware, [facility] rehab requested.
PT and OT continue to recommend acute rehab.
PM&AR consult still pending.
A referral to [facility] made, spoke to liaison Evette and she stated that they most likely will have a bed available tomorrow and an auth from [facility] requested.
CM initiated an auth from [facility] for acute level of rehab at [facility] re[facility], spoke to [facility] tour sales representative Janell, pending auth is: [id number]. Requested pt's clinical faxed to [facility] at [phone].
Awaiting for an auth from [facility]
d/C plan: [facility] once an auth obtained.
CM will follow to assist pt with discharge to [facility].
[2024-01-26 16:46] LABS: Glucose - Point of Care 110 mg/dl (70-99)
[2024-01-26] MEDS: LIPITOR 80 MG PO (17:06)
--- NOTE | 2024-01-26 17:16 | PTCARENOTE ---
Systems received, unchanged from previous assessments. Pt. remains OOB to chair; walked hallways w RW w PT this afternoon. Family remains @ bedside. Chair alarm active; call kimberlyn w in reach.
--- NOTE | 2024-01-26 18:27 | PTCARENOTE ---
Received patient from ICU awake and alert . Accompanied by family.
--- NOTE | 2024-01-26 18:48 | PTCARENOTE ---
Report given to 4W RN and pt. transported via wheelchair w family and belongings. Bedside NIH assessment completed w on coming RN. No further needs from this RN.
[2024-01-26 20:58] LABS: Glucose - Point of Care 78 mg/dl (70-99)
[2024-01-26] MEDS: SEROQUEL 25 MG PO (21:02)
[2024-01-26] MEDS: ZETIA 10 MG PO (21:02)
[2024-01-26] MEDS: DESYREL 50 MG PO (21:02)
[2024-01-26 23:27] LABS: Glucose - Point of Care 95 mg/dl (70-99)
[2024-01-27] VITALS (8 sets, daily range): BP systolic 96–167; BP diastolic 48–88; PULSE 109; O2SAT 96
[2024-01-27] MEDS: DESENEX/MITRAZOL/ZEASORB 1 APPLIC TOPICAL ×3 (00:18→20:39)
[2024-01-27 07:40] LABS: Glucose - Point of Care 85 mg/dl (70-99)
[2024-01-27] MEDS: NOVOLOG FLEXPEN-MODERATE RESISTANCE SC ×2 (09:27→16:59)
[2024-01-27] MEDS: EFFEXOR XR 225 MG PO (09:32)
[2024-01-27] MEDS: GLUCOPHAGE 1000 MG PO (09:33)
[2024-01-27] MEDS: NORVASC 5 MG PO (09:33)
[2024-01-27] MEDS: BRILINTA 90 MG PO ×2 (09:33→20:39)
--- NOTE | 2024-01-27 10:10 | W.PN.HOSP.TC ---
Today's Communication/Plan
-
Discharge
Assessment / Plan
Assessment / Plan
Physical Exam
General: comfortable, no respiratory distress
HEENT: NormoCephalic, Anicteric, PERRLA, [place] Conjunctivae, right facial droop
Respiratory: Clear; No Wheezes, Rales or Rhonchi
Cardiac: S1/S2
GI: Soft, Non Tender, Non Distended, Normal Bowel Sounds
Rectal: No rectal bleeding
Genito-urinary: No Pepe
Musculoskeletal: No Clubbing, No Cyanosis and No Edema
Skin: Warm and Dry; No Rash
Neuro: Awake, Alert, Oriented to self and surroundings, no slurred Speech, right facial droop, no pronator drift, she followed commands. Gait not assessed
Psych: Calm
#Acute bilateral strokes
She presented with sudden onset of slurred speech and with left-sided weakness, s/p TNK given in ER 01/23/24
PMH large right MCA infarct 07/30/2020
MRI showed numerous acute cortical infarct foci are demonstrated involving the right temporal lobe, insular cortex, parietal lobe, and right periventricular white matter. There is also a small left cerebellar acute infarct. There is a large right
parietal infarct focus measuring 2 cm, which is associated with petechial hemorrhage. Severe diffuse bilateral confluent white matter leukoariosis. Few small right frontal white matter chronic lacunar infarcts. Small chronic right cerebellar
infarct. Advanced global atrophy.
She feels better, speech seems fluent. Denies headache or chest pain, feels arms are normal now
-Held Brilinta 90 mg twice daily and resumed PM dose 01/23
-PT/OT/Speech consulted
- Repeat CT head post TX showed stable findings.
Echo showed LVEF 60-70%
- Moderate dementia with other behavioral disturbance per records.
- Appreciate neurology input
# Leukocytosis, reactive
# Recurrent major depressive disorder. Continue with venlafaxine, quetiapine and trazodone.
d/w daughter, important to c/w her meds, she used to have problems at night with inability to sleep
#Ex-smoker
#History of PE.
# Hx loop recorder 2016
#HTN�benign
s/p permissive HTN
Resume amlodipine
#HLD
-Continue atorvastatin 80 mg every afternoon
#DM 2
Poorly controlled. HGB A1C 9
Resumed Glimepiride, added metformin, will reduce the dose as BS around 78-95 in evening time
Accu-Cheks with SSI,
#GERD
Continue Nexium 20 mg daily or equivalent
#Constipation hx
-Monitored bowel movements
Other PMH:
fecal incontinence,
renal calculi history of laser lithotripsy ureteroscopy
DVT prophylaxis
SCDs given patient received TNK
Total time spent to see the patient, examine the patient on the floor, review data and lab results, discuss the treatment plan with the patient, daughter, nursing staff around 55 minutes
Anticipated Discharge: Today
Subjective/Interval History
-
Date of Service: January 27, 2024
No complaints
Objective Data
-
Vital Signs:
Vital Signs
Temp Pulse Resp BP Pulse Ox
98.0 F 91 18 167/85 94
01/27/24 07:00 01/27/24 07:00 01/27/24 07:00 01/27/24 07:00 01/27/24 07:00
I&O
01/26/24 01/27/24 01/28/24
06:59 06:59 06:59
Intake Total 560 / 560 360 / 360
Output Total 200 / 200
Balance 560 / 560 160 / 160
--- NOTE | 2024-01-27 10:23 | CM ---
MIKI placed call to [facility] insurance,
MIKI initiated an auth from [facility] for acute level of rehab at [facility], spoke to T outreach representative Janell,
--- NOTE | 2024-01-27 10:23 | CM ---
Addendum entered by Cheyenne Rucker 01/27/24 14:44:
CM placed call to [employer], auth remains pending.
Original Note:
CM reviewed chart, patient [employer] auth submitted for [facility]. CM placed call to [facility], auth pending, pending auth: [id number]. Patient and seen bedside, updated with pending auth status. Bunny at [facility] updated. CM will
continue to check on auth status, will follow for all discharge planning needs.
Plan; [facility] pending auth from [employer].
[2024-01-27] MEDS: AMARYL 1 MG PO ×2 (10:42→16:59)
[2024-01-27 11:45] LABS: Glucose - Point of Care 165 mg/dl (70-99)
[2024-01-27] MEDS: NOVOLOG FLEXPEN-MODERATE RESISTANCE 1 UNITS SC (14:25)
--- NOTE | 2024-01-27 15:15 | W.PN.NEURO.1 ---
Today's Communication / Plan
-
Continue Brilinta 90mg BID
IP Rehab
Neuro Assessment/Plan
Assessment
78 year old right handed female who has presented to the hospital with (chief complaint) of left-sided weakness and slurred speech at 845 PM. She gives a history of hypertension hyperlipidemia diabetes GERD right MCA infarct with left hemiparesis
that resolved with residual cognitive issues secondary to small vessel disease and vascular insufficiency and a small subdural the year before. who had slurred speech with left sided weakness that resolved after TNK infusion.
Plan
Continue Brilinta 90 mg BID
Transfer to [facility] Rehab
Subjective/Objective
Subjective Data
Date of Service: January 27, 2024
Mrs Buchanan continues to do well. Has had no new speech impediment or weakness...Doing well on Brilinta. Serial CT head is negative for hemorrhagic transformation of new infarction
Objective Data
Vital Signs
Temp Pulse Resp BP Pulse Ox
36.6 C 108 18 139/71 95
01/27/24 11:00 01/27/24 11:00 01/27/24 11:00 01/27/24 11:00 01/27/24 11:00
Lab Results
01/25/24 05:36
01/25/24 05:36
PT 13.9 Sec (11.4-14.6) 01/25/24 05:36
INR 1.07 01/25/24 05:36
APTT 28.3 Sec (23.4-35.0) 01/25/24 05:36
Sodium 139 mmol/L (135-145) 01/25/24 05:36
Potassium 3.8 mmol/L (3.5-5.1) 01/25/24 05:36
BUN 13 mg/dl (7-17) 01/25/24 05:36
Glucose 141 mg/dl (70-99) H 01/25/24 05:36
Calcium 9.2 mg/dl (8.4-10.2) 01/25/24 05:36
Phosphorus 4.5 mg/dl (2.5-4.5) 01/24/24 04:08
LDL Cholesterol, Calc 170 mg/dl 01/24/24 04:08
Patient Allergies
No Known Allergies Allergy (Verified 05/29/23 07:56)
Physical Exam
-
General: Well Developed, Well Nourished, No Apparent Distress and Comfortable
Eyes: Able to visualize OU and Unremarkable
HEENT: Normocephalic and Atraumatic
Neck: Full Range of Motion
Respiratory: Clear to Auscultation
Cardiac: Regular Rhythm and No Murmur
GI: Normal Bowel Sounds and Soft
Skin: Unremarkable and Warm
Extremities: No Clubbing, No Cyanosis and No Edema
Psych: Unremarkable
Extended Neurological Exam
Mood & Affect: Mood Unremarkable and Affect Unremarkable
Attention Span & Concentration: Awake, Alert, Interactive and No Difficulty with 2 Step Request
Memory: Unremarkable, Able to Recall and Recalls Objects
Tremor: Hand Tremor Absent and Head Tremor Absent
Involuntary Movement: None
Speech: Quality Unremarkable, Quantity Unremarkable and Rate of Production Unremarkable
Cranial Nerves III, IV, : Extraocular Movement: Extraocular Movement Full in all Directions
Cranial Nerve V: Facial Sensation: Facial Sensation Unremarkable to Cold and Intact to Light Touch
Cranial Nerve VII: Facial Symmetry: Normal Facial Symmetry
Cranial Nerve VIII: Hearing: Unremarkable Hearing to Normal Conversational Volume
Cranial Nerves IX, X: Palate Movement: Palate Elevation Symmetric
Cranial Nerve XI: Shoulder Shrug: Unremarkable
Cranial Nerve XII: Tongue Protusion: Midline
Muscle Strength, Overall: Full Throughout
Muscle Bulk & Tone: Bulk Unremarkable
Pronator Drift: No Drift in Upper Extremities and No Drift in Lower Extremities
Deep Tendon Reflexes: Unremarkable Throughout
Cold Sensation: Unremarkable
Vibration Sensation: Unremarkable
Touch Sensation: Unremarkable
Babinski Sign: Absent Bilaterally
Gait & Station: Up from Seated Without Problem and Up from Lying with Difficulty
Modified [place] Score (MRS)
-
Modified [place] Scale (mRS): Slight disability. Able to look after own affairs.
Score: 2
[2024-01-27 16:38] LABS: Glucose - Point of Care 105 mg/dl (70-99)
[2024-01-27] MEDS: LIPITOR 80 MG PO (16:58)
[2024-01-27] MEDS: GLUCOPHAGE 500 MG PO (16:59)
[2024-01-27] MEDS: ZETIA 10 MG PO (20:38)
[2024-01-27] MEDS: DESYREL 50 MG PO (20:38)
[2024-01-27] MEDS: SEROQUEL 25 MG PO (20:38)
[2024-01-27 21:00] LABS: Glucose - Point of Care 111 mg/dl (70-99)
[2024-01-28 03:05] VITALS: BP 123/79
[2024-01-28 07:00] VITALS: BP 132/75
[2024-01-28] MEDS: NORVASC 5 MG PO (07:46)
[2024-01-28] MEDS: GLUCOPHAGE 500 MG PO ×2 (07:46→17:00)
[2024-01-28] MEDS: BRILINTA 90 MG PO ×2 (07:46→21:04)
[2024-01-28] MEDS: AMARYL 1 MG PO ×2 (07:47→17:00)
[2024-01-28] MEDS: DESENEX/MITRAZOL/ZEASORB 1 APPLIC TOPICAL ×2 (07:47→21:04)
[2024-01-28 07:59] LABS: Glucose - Point of Care 134 mg/dl (70-99)
[2024-01-28] MEDS: NOVOLOG FLEXPEN-MODERATE RESISTANCE SC ×2 (08:14→17:38)
--- NOTE | 2024-01-28 09:02 | W.PN.HOSP.TC ---
Today's Communication/Plan
-
Await dc to rehab
Assessment / Plan
Assessment / Plan
Physical Exam
General: comfortable, no respiratory distress
HEENT: NormoCephalic, Anicteric, PERRLA, [place] Conjunctivae, right facial droop
Respiratory: Clear; No Wheezes, Rales or Rhonchi
Cardiac: S1/S2
GI: Soft, Non Tender, Non Distended, Normal Bowel Sounds
Rectal: No rectal bleeding
Genito-urinary: No Pepe
Musculoskeletal: No Clubbing, No Cyanosis and No Edema
Skin: Warm and Dry; No Rash
Neuro: Awake, Alert, Oriented to self and surroundings, no slurred Speech, right facial droop, no pronator drift, she followed commands. Gait not assessed
Psych: Calm
#Acute bilateral strokes
She presented with sudden onset of slurred speech and with left-sided weakness, s/p TNK given in ER 01/23/24
PMH large right MCA infarct 07/30/2020
MRI showed numerous acute cortical infarct foci are demonstrated involving the right temporal lobe, insular cortex, parietal lobe, and right periventricular white matter. There is also a small left cerebellar acute infarct. There is a large right
parietal infarct focus measuring 2 cm, which is associated with petechial hemorrhage. Severe diffuse bilateral confluent white matter leukoariosis. Few small right frontal white matter chronic lacunar infarcts. Small chronic right cerebellar
infarct. Advanced global atrophy.
She feels better, speech seems fluent. Denies headache or chest pain, feels arms are normal now
-Held Brilinta 90 mg twice daily and resumed PM dose 01/23
-PT/OT/Speech consulted
- Repeat CT head post TX showed stable findings.
Echo showed LVEF 60-70%
- Moderate dementia with other behavioral disturbance per records.
- Appreciate neurology input
# Leukocytosis, reactive
# Recurrent major depressive disorder. Continue with venlafaxine, quetiapine and trazodone.
d/w daughter, important to c/w her meds, she used to have problems at night with inability to sleep
#Ex-smoker
#History of PE.
# Hx loop recorder 2016
#HTN�benign
s/p permissive HTN
Resume amlodipine
#HLD
-Continue atorvastatin 80 mg every afternoon
#DM 2
Poorly controlled. HGB A1C 9
Resumed Glimepiride, added metformin, will reduce the dose as BS around 78-95 in evening time
Accu-Cheks with SSI,
#GERD
Continue Nexium 20 mg daily or equivalent
#Constipation hx
-Monitored bowel movements
Other PMH:
fecal incontinence,
renal calculi history of laser lithotripsy ureteroscopy
DVT prophylaxis
SCDs given patient received TNK
Total time spent to see the patient, examine the patient on the floor, review data and lab results, discuss the treatment plan with the patient, daughter, nursing staff around 45 minutes
Anticipated Discharge: Today
Subjective/Interval History
-
Date of Service: January 28, 2024
No fever
No chest pain or sob
Objective Data
-
Vital Signs:
Vital Signs
Temp Pulse Resp BP Pulse Ox
98.5 F 95 16 123/79 95
01/28/24 07:00 01/28/24 07:46 01/28/24 07:00 01/28/24 07:46 01/28/24 07:00
I&O
01/27/24 01/28/24 01/29/24
06:59 06:59 06:59
Intake Total 360 / 360 960 / 960
Output Total 200 / 200
Balance 160 / 160 960 / 960
--- NOTE | 2024-01-28 10:19 | CM ---
TC anna Willson /Asha [phone]
pending auth: [id number]- has been assisgned to a CM, but still pending.
Plan: [facility] once auth received.
[2024-01-28] MEDS: EFFEXOR XR 225 MG PO (11:49)
[2024-01-28 11:51] LABS: Glucose - Point of Care 157 mg/dl (70-99)
[2024-01-28] MEDS: NOVOLOG FLEXPEN-MODERATE RESISTANCE 1 UNITS SC (11:53)
[2024-01-28 13:52] VITALS: BP 111/74; PULSE 100
[2024-01-28 15:00] VITALS: BP 115/72
--- NOTE | 2024-01-28 15:01 | CHAP ---
Ms. Buchanan was gracious. Said she's doing well. She was concerned about where her family was - I checked with nurse, who reassured Jasmin that her family would be coming soon. Emotional support provided.
[2024-01-28] MEDS: LIPITOR 80 MG PO (17:00)
[2024-01-28] MEDS: ZOFRAN 4 MG IV (17:31)
[2024-01-28 17:32] LABS: Glucose - Point of Care 144 mg/dl (70-99)
[2024-01-28 19:00] VITALS: BP 138/79
[2024-01-28] MEDS: ZETIA 10 MG PO (21:04)
[2024-01-28] MEDS: DESYREL 50 MG PO (21:04)
[2024-01-28] MEDS: SEROQUEL 25 MG PO (21:04)
[2024-01-28 23:00] VITALS: BP 130/65
[2024-01-29] VITALS (8 sets, daily range): BP systolic 97–154; BP diastolic 46–100; PULSE 91; O2SAT 91
[2024-01-29] MEDS: BRILINTA 90 MG PO ×2 (07:29→20:37)
[2024-01-29] MEDS: EFFEXOR XR 225 MG PO (07:29)
[2024-01-29] MEDS: DESENEX/MITRAZOL/ZEASORB 1 APPLIC TOPICAL ×2 (07:29→20:37)
[2024-01-29] MEDS: GLUCOPHAGE 500 MG PO ×2 (07:29→16:59)
[2024-01-29] MEDS: NORVASC 5 MG PO (07:29)
[2024-01-29 08:15] LABS: Glucose - Point of Care 147 mg/dl (70-99)
[2024-01-29] MEDS: NOVOLOG FLEXPEN-MODERATE RESISTANCE SC ×2 (08:21→16:59)
--- NOTE | 2024-01-29 09:10 | W.PN.HOSP.TC ---
Addendum entered and electronically signed by Dia Mejía MD 01/29/24 13:39:
Pilar
- Repeat blood work showed mild renal insufficiency, acute kidney injury. Due to history of strokes, will rule out urinary retention, order bladder scan. No hypotension noted. Encourage fluid intake and repeat BMP in a.m.
-Mild leukocytosis. No fever. Will monitor.
Total time spent to see the patient, examine the patient on the floor, review data and lab results, discuss the treatment plan with the patient, nursing staff around 55 minutes
Original Note:
Today's Communication/Plan
-
Await discharge planning
DO regular blood work today
Assessment / Plan
Assessment / Plan
Physical Exam
General: comfortable, no respiratory distress
HEENT: NormoCephalic, Anicteric, PERRLA, [place] Conjunctivae, right facial droop
Respiratory: Clear; No Wheezes, Rales or Rhonchi
Cardiac: S1/S2
GI: Soft, Non Tender, Non Distended, Normal Bowel Sounds
Rectal: No rectal bleeding
Genito-urinary: No Pepe
Musculoskeletal: No Clubbing, No Cyanosis and No Edema
Skin: Warm and Dry; No Rash
Neuro: Awake, Alert, Oriented to self and surroundings, no slurred Speech, right facial droop, no pronator drift, she followed commands. Gait not assessed
Psych: Calm
#Acute bilateral strokes
She presented with sudden onset of slurred speech and with left-sided weakness, s/p TNK given in ER 01/23/24
PMH large right MCA infarct 07/30/2020
MRI showed numerous acute cortical infarct foci are demonstrated involving the right temporal lobe, insular cortex, parietal lobe, and right periventricular white matter. There is also a small left cerebellar acute infarct. There is a large right
parietal infarct focus measuring 2 cm, which is associated with petechial hemorrhage. Severe diffuse bilateral confluent white matter leukoariosis. Few small right frontal white matter chronic lacunar infarcts. Small chronic right cerebellar
infarct. Advanced global atrophy.
She feels better, speech seems fluent. Denies headache or chest pain, feels arms are normal now
-Held Brilinta 90 mg twice daily and resumed PM dose 01/23
-PT/OT/Speech consulted
- Repeat CT head post TX showed stable findings.
Echo showed LVEF 60-70%
- Moderate dementia with other behavioral disturbance per records.
- Appreciate neurology input
# Leukocytosis, reactive
# Recurrent major depressive disorder. Continue with venlafaxine, quetiapine and trazodone.
d/w daughter, important to c/w her meds, she used to have problems at night with inability to sleep
#Ex-smoker
#History of PE.
# Hx loop recorder 2016
#HTN�benign
s/p permissive HTN
Resume amlodipine
#HLD
-Continue atorvastatin 80 mg every afternoon
#DM 2
Poorly controlled. HGB A1C 9
Resumed Glimepiride, added metformin, will reduce the dose as BS around 78-95 in evening time
Accu-Cheks with SSI,
#GERD
Continue Nexium 20 mg daily or equivalent
#Constipation hx
-Monitored bowel movements
Other PMH:
fecal incontinence,
renal calculi history of laser lithotripsy ureteroscopy
DVT prophylaxis
SCDs given patient received TNK
Total time spent to see the patient, examine the patient on the floor, review data and lab results, discuss the treatment plan with the patient, daughter, nursing staff around 45 minutes
Anticipated Discharge: Today
Subjective/Interval History
-
Date of Service: January 29, 2024
No complaints
Denies chest pain or headache
Objective Data
-
Vital Signs:
Vital Signs
Temp Pulse Resp BP Pulse Ox
98.7 F 94 16 132/95 94
01/29/24 07:00 01/29/24 07:29 01/29/24 07:00 01/29/24 07:29 01/29/24 07:00
I&O
01/28/24 01/29/24 01/30/24
06:59 06:59 06:59
Intake Total 960 / 960 1320 / 1320
Balance 960 / 960 1320 / 1320
[2024-01-29] MEDS: AMARYL 1 MG PO ×2 (09:25→16:59)
[2024-01-29 10:33] LABS: Hematocrit 41.3 % (37.0-47.0); Hemoglobin 14.1 g/dL (12.0-16.0); Mean Corp Hgb Conc. 34.1 g/dL (33.0-37.0); Mean Corpuscular Hgb 28.3 pg (27.0-31.0); Mean Corpuscular Volume 82.9 fL (81.0-99.0); Mean Platelet Volume 9.5 fL (7.4-10.4); Platelet Count 351 10^3/uL (130-400); Red Blood Cell Count 4.98 10^6/uL (4.20-5.40); Red Cell Dist. Width 14.3 % (11.5-14.5)
[2024-01-29 10:45] LABS: Blood Urea Nitrogen 24 mg/dl (7-17); Calcium 9.6 mg/dl (8.4-10.2); Carbon Dioxide 23 mmol/L (22-30); Chloride 98 mmol/L (98-107); Estimated Creatinine Clearance 34 ml/min; Glucose 208 mg/dl (70-99); Potassium 4.2 mmol/L (3.5-5.1); Sodium 137 mmol/L (135-145); eGFR 45.76
[2024-01-29 11:50] LABS: Glucose - Point of Care 242 mg/dl (70-99)
[2024-01-29] MEDS: NOVOLOG FLEXPEN-MODERATE RESISTANCE 3 UNITS SC (11:52)
[2024-01-29 16:42] LABS: Glucose - Point of Care 122 mg/dl (70-99)
[2024-01-29] MEDS: LIPITOR 80 MG PO (16:59)
[2024-01-29] MEDS: ZETIA 10 MG PO (21:10)
[2024-01-29] MEDS: SEROQUEL 25 MG PO (21:10)
[2024-01-29] MEDS: DESYREL 50 MG PO (21:10)
[2024-01-29 21:19] LABS: Glucose - Point of Care 183 mg/dl (70-99)
[2024-01-30 03:10] VITALS: BP 148/78
[2024-01-30 07:01] VITALS: BP 105/87
[2024-01-30 07:56] LABS: Glucose - Point of Care 135 mg/dl (70-99)
[2024-01-30 08:21] LABS: Hematocrit 41.6 % (37.0-47.0); Hemoglobin 14.4 g/dL (12.0-16.0); Mean Corp Hgb Conc. 34.6 g/dL (33.0-37.0); Mean Corpuscular Hgb 28.6 pg (27.0-31.0); Mean Corpuscular Volume 82.7 fL (81.0-99.0); Mean Platelet Volume 9.7 fL (7.4-10.4); Platelet Count 355 10^3/uL (130-400); Red Blood Cell Count 5.03 10^6/uL (4.20-5.40); Red Cell Dist. Width 14.3 % (11.5-14.5); White Blood Cell Count 11.2 10^3/uL (4.8-10.8)
[2024-01-30] MEDS: NOVOLOG FLEXPEN-MODERATE RESISTANCE SC (08:39)
[2024-01-30 08:51] LABS: Blood Urea Nitrogen 23 mg/dl (7-17); Calcium 9.6 mg/dl (8.4-10.2); Carbon Dioxide 22 mmol/L (22-30); Chloride 101 mmol/L (98-107); Estimated Creatinine Clearance 37 ml/min; Glucose 150 mg/dl (70-99); Potassium 4.4 mmol/L (3.5-5.1); Sodium 140 mmol/L (135-145)
[2024-01-30] MEDS: BRILINTA 90 MG PO (10:34)
[2024-01-30] MEDS: GLUCOPHAGE 500 MG PO (10:34)
[2024-01-30] MEDS: EFFEXOR XR 225 MG PO (10:34)
[2024-01-30] MEDS: AMARYL 1 MG PO (10:34)
[2024-01-30] MEDS: DESENEX/MITRAZOL/ZEASORB 1 APPLIC TOPICAL (10:35)
[2024-01-30] MEDS: NORVASC 5 MG PO (10:35)
--- NOTE | 2024-01-30 11:25 | W.PN.HOSP.TC ---
Today's Communication/Plan
-
await Acute rehab placement. D/W CM
Assessment / Plan
Assessment / Plan
Assessment:
Acute bilateral strokes
- MRI: Numerous acute cortical infarct foci are demonstrated involving the right temporal lobe, insular cortex, parietal lobe, and right periventricular white matter. There is also a small left cerebellar acute infarct. There is a large right
parietal infarct focus measuring 2 cm, which is associated with petechial hemorrhage. No mass effect. No midline shift. Severe diffuse bilateral confluent white matter leukoariosis. Few small right frontal white matter chronic lacunar infarcts.
Small chronic right cerebellar infarct.
- Echo: normal EF, otherwise unremarkable
- continue Brilinta/Statin/Zetia
- Neuro signed off
- PT/OT awaiting Acute Rehab
MAXI
- no evidence of retention
- monitor BMP
- encourage hydration
Advanced global atrophy
Moderate dementia with other behavioral disturbance per records.
- Appreciate neurology input
Leukocytosis, reactive
- no evidence of infections
Recurrent major depressive disorder
- continue with venlafaxine, quetiapine and trazodone.
- d/w daughter, important to c/w her meds, she used to have problems at night with inability to sleep
Ex-smoker
History of PE.
Hx loop recorder 2016
Essential HTN
- continue Amlodipine
HLD
- continue atorvastatin 80 mg every afternoon
DM 2
- A1c 9%
- continue Glimepiride, MFM
- SSI
GERD
- continue Nexium 20 mg daily or equivalent
Constipation hx
- monitored bowel movements
DVT prophylaxis: SCDs
Code: DNR
Anticipated Discharge: Within 24 hours
Subjective/Interval History
-
Date of Service: January 30, 2024
no new complaints at present
Objective Data
-
Labs:
Laboratory Results
01/30/24
07:36
WBC 11.2 H
Hgb 14.4
Hct 41.6
Plt Count 355
Sodium 140
Potassium 4.4
Chloride 101
Carbon Dioxide 22
BUN 23 H
Creatinine 1.1 H
Glucose 150 H
Calcium 9.6
Vital Signs:
Vital Signs
Temp Pulse Resp BP Pulse Ox
97.6 F 83 18 105/87 97
01/30/24 07:01 01/30/24 07:01 01/30/24 07:01 01/30/24 07:01 01/30/24 07:01
I&O
01/29/24 01/30/24 01/31/24
06:59 06:59 06:59
Intake Total 1320 / 1320 1200 / 1200
Balance 1320 / 1320 1200 / 1200
Physical Exam
-
General: No Apparent Distress
HEENT: Normocephalic and Atraumatic
Respiratory: Negative Wheezes
Cardiac: Regular Rhythm
GI: Soft
Genito-urinary: No Costovertebral Tender
Neuro: AO x 3
Psych: Calm
Data Reviewed
-
Total Time Spent with Patient (in minutes): 42
Labs: Labs Reviewed by me
[2024-01-30 11:28] VITALS: BP 139/77
--- NOTE | 2024-01-30 11:36 | CM ---
Addendum entered by Nilam Valdes 01/30/24 11:59:
TCB from [facility]- authorization for acute rehab
Auth# [id number]
Approve 7 days
Start date 01/30/24, LCD/NRD 02/06/24
updates to
case nurse Edie [phone]
Shira from [facility]
Plan: [facility] today
[facility] today
[phone]

Original Note:
TC to [facility]/Edie this morning.
She will be reviewing case and call this registered nurse hh case manager back.
Spoke with Shira at [facility], bed available for transfer once auth received.
Spoke with patients spouse and updated.
Plan: Rehab once insurance approves.
--- NOTE | 2024-01-30 12:19 | W.DS.TRANS ---
DC Summary - Psychotherapist Counselor
-
Discharge Instructions:
Discharge Diagnosis/Procedures Acute bilateral strokes, MAXI
Diet Diabetic, Carb Controlled
Activity As tolerated
Bathing Restrictions None
Instructions:
Stand-Alone Forms:
Changes to Home Medications: No
Discharge Medications:
DC Medications w/original date entered in [facility]
acetaminophen 500 mg tablet 1,000 mg PO Q8HPRN PRN mild pain 04/08/22
amlodipine 5 mg tablet 5 mg PO DAILY #90 tabs 04/22/22
venlafaxine 75 mg capsule,extended release 24 hr 225 mg (3 x 75 mg) PO DAILY #90 caps 04/22/22
atorvastatin 80 mg tablet 80 mg PO QPM High Cholesterol 01/23/24
clotrimazole 1 % topical cream 1 applic topical BID diaper rash 01/23/24
esomeprazole magnesium 20 mg capsule,delayed release (Nexium) 20 mg PO DAILYPRN PRN gerd 01/23/24
estradiol 0.01% (0.1 mg/gram) vaginal cream 1 appful vaginal TUFR Hormonal Agent 01/23/24
glimepiride 1 mg tablet 1 mg PO BID Diabetes 01/23/24
quetiapine 25 mg tablet (Seroquel) 25 mg PO HS Mental Health/Anxiety 01/23/24
trazodone 50 mg tablet 50 mg PO HS Sleep 01/23/24
ticagrelor 90 mg tablet (Brilinta) 90 mg PO BID Blood Clot Prevention/Tx 01/24/24
ezetimibe 10 mg tablet 10 mg PO HS #30 tabs 01/30/24
metformin 500 mg tablet 500 mg PO BID@0800,1700 #60 tabs 01/30/24
Home Medication Changes
Pending Results: No
Total time spent discharging patient (in min): 41
[2024-01-30 12:21] LABS: Glucose - Point of Care 190 mg/dl (70-99)
[2024-01-30] MEDS: NOVOLOG FLEXPEN-MODERATE RESISTANCE 1 UNITS SC (12:36)
== END 2024-01-30 14:54 | DRG 62 ==
LOC: 4 WEST ACU 23:07
PROVIDERS: Clinical Nurse Specialist Family Health; Internal Medicine; Nurse Practitioner Primary Care; ADMITTING PHYSICIAN Internal Medicine; ATTENDING PHYSICIAN Internal Medicine; CONSULT PHYSICIAN Physical Medicine & Rehabilitation; CONSULT PHYSICIAN Psychiatry & Neurology Neurology; EMERGENCY PHYSICIAN Emergency Medicine; FAMILY PHYSICIAN Family Medicine; OTHER PHYSICIAN Internal Medicine Cardiovascular Disease; OTHER PHYSICIAN Internal Medicine Critical Care Medicine
PROC: 3E03317 Introduction of Other Thrombolytic into Peripheral Vein, Percutaneous Approach (ICD-10-PCS; 2024-01-23)
DX: I63.511 Cerebral infarction due to unspecified occlusion or stenosis of right middle cerebral artery (principal); F03.B18 Unspecified dementia, moderate, with other behavioral disturbance; G81.94 Hemiplegia, unspecified affecting left nondominant side; F03.B3 Unspecified dementia, moderate, with mood disturbance; F33.9 Major depressive disorder, recurrent, unspecified; F03.B4 Unspecified dementia, moderate, with anxiety; N17.9 Acute kidney failure, unspecified; R41.4 Neurologic neglect syndrome; E11.9 Type 2 diabetes mellitus without complications; I10 Essential (primary) hypertension; R47.01 Aphasia; I63.542 Cerebral infarction due to unspecified occlusion or stenosis of left cerebellar artery; R47.81 Slurred speech; R13.10 Dysphagia, unspecified; R29.712 NIHSS score 12; M79.7 Fibromyalgia; E78.5 Hyperlipidemia, unspecified; F41.9 Anxiety disorder, unspecified; K21.9 Gastro-esophageal reflux disease without esophagitis; R32 Unspecified urinary incontinence; Z79.02 Long term (current) use of antithrombotics/antiplatelets; Z79.84 Long term (current) use of oral hypoglycemic drugs; Z79.899 Other long term (current) drug therapy; Z86.711 Personal history of pulmonary embolism; Z87.891 Personal history of nicotine dependence; Z87.442 Personal history of urinary calculi; Z87.19 Personal history of other diseases of the digestive system; Z86.73 Personal history of transient ischemic attack (TIA), and cerebral infarction without residual deficits; Z86.79 Personal history of other diseases of the circulatory system; Z90.49 Acquired absence of other specified parts of digestive tract; Z96.611 Presence of right artificial shoulder joint; Z96.653 Presence of artificial knee joint, bilateral
CPT/HCPCS: 70450; 70496; 70498; 70551; 71045; 80048; 80053; 80061; 82962; 83036; 83735; 84100; 85025; 85027; 85610; 85730; 92507; 92523; 92526; 92610; 93005; 93306; 97110; 97116; 97163; 97167; 97535; 99285; J3101; Q9967

== ENCOUNTER 2024-02-20 16:35 | Emergency (ER) | payer OTHER, SELFPAY ==
[2024-02-20 16:50] VITALS: BP 131/73
--- NOTE | 2024-02-20 18:59 | ED.GENMED ---
History of Present Illness
General
Chief Complaint: Head Injury
Source: patient, records and spouse
Exam Limitations: none
Time Seen by Provider: 02/20/24 18:55
Nursing documentation reviewed up to this point in time: agreed with
History of Present Illness
History of Present Illness:
Patient is an 78-year-old female who presents to the emergency department with her after she did not use her walker as instructed and fell back striking the back of her head today. Patient has a long history of being unsteady. Patient
denies any syncope, diaphoresis, chest pain, palpitations, shortness of breath. Patient fell back struck her head but does not have a headache or neck pain. Patient denies any visual or speech problems. Patient denies any focal weakness or
ataxia. Patient denies any recent illnesses.
Past History
Past History
ED Past Medical History: CVA, Hypercholesterolemia, NIDDM (Controlled by Diet) and Other (Fecal incontinence)
ED Past Surgical History: Appendectomy, Cholecystectomy, Orthopedic (Bilateral knee replacements, right shoulder replacement) and Other (Cataracts)
Social History
Tobacco: Former smoker
Alcohol: None
Drug: None
Personal:
Living: with family
Employment: Retired
Family History
Family History: Other (Mother with COPD father of brain cancer )
Review of Systems
Review of Systems
All Other Systems: Not applicable
Phy Exam
Physical Exam
Physical Exam:
Physical Exam
General: No apparent distress, alert and appropriate, well nourished, well hydrated
HENT: Normocephalic with no tenderness or deformity, supple with no tracheal deviation or contusion
Eyes: Clear sclera, conjuctiva without injection, extraocular muscles intact
Heart: Regular rhythm and rate. No S3, S4. No murmur. No NVD
Lungs: No respiratory distress, no stridor, lung sounds clear and equal bilaterally, chest wall symmetrical and nontender
Abdomen: Soft, nontender, BS good
Neuro: Alert and usual mental status, CN II - XII intact, no motor focality, no cerebellar dysfunction
Skin: no wounds
Psychiatric: well kept. interactive and cooperative
Extremities: No edema, cyanosis, tenderness
Musculoskeletal: No cervical, thoracic or lumbar spine tenderness
Course
Orders/Labs/Results
Orders:
Orders
02/20/24 16:52
CT Head W/o Iv Contrast Urgent
Comment: hx cva
Reason For Exam: fell hit back of head on thinners
Vital Signs
Initial and Last Documented VS:
Initial Vital Signs
Temp Pulse Resp BP Pulse Ox
98.0 F 85 16 131/73 98
02/20/24 16:50 02/20/24 16:50 02/20/24 16:50 02/20/24 16:50 02/20/24 16:50
Last Documented Vital Signs
Temp Pulse Resp BP Pulse Ox
98.0 F 85 16 131/73 98
02/20/24 16:50 02/20/24 16:50 02/20/24 16:50 02/20/24 16:50 02/20/24 16:50
*Radiology
Radiology exam reviewed: radiology read reviewed (CT unremarkable)
*Pulse Oximetry
Patient hypoxic: not evaluated
*EKG
Interpreted by ED Provider?: NA
*Product Assurance Engineer Interpretation
Rate: Product Assurance Engineer- N/A
*Critical Care Note
Total Time (30-74mins, 75-104mins- exclusive of procedures): Not Applicable
ED Attending Note
-
Portions of this chart may have been created with voice recognition software.� Occasional wrong word or��sound alike� substitutions may have occurred due to the inherent limitations of voice recognition software.
Discharge Plan
Departure
Patient Disposition: Home (Routine Discharge)
Date of Disposition: 02/20/24
Time of Disposition: 19:00
Patient with high blood pressure during this ER visit?: No
Condition: Good
Covid-19: Not Applicable
Discharge Problem:
Minor closed head injury, Fall
Instructions: Minor Head Injury (DC), Fall Prevention for Older Adults
Prescriptions:
No Action
quetiapine [Seroquel] 25 mg Tablet
25 mg PO HS
glimepiride 1 mg Tablet
1 mg PO BID
estradiol 0.01 % (0.1 mg/gram) Cream
1 appful VAGINAL TUFR
trazodone 50 MG tablet
50 mg PO HS
clotrimazole 1 % cream
1 applic TOPICAL BID
Brilinta 90 mg tablet
90 mg PO BID
amlodipine 5 mg Tablet
5 mg PO DAILY Qty: 90 0RF
miconazole nitrate [Miconazorb AF] 2 % Powder
1 applic topical BIDPRN PRN (Reason: IRRITATION/REDDNESS) 30 Days Qty: 1 0RF
docusate sodium 100 mg Capsule
100 mg PO BID 30 Days Qty: 60 0RF
bisacodyl 5 mg Tablet,Delayed Release (Dr/Ec)
10 mg PO DAILYPRN PRN (Reason: constipation) 30 Days Qty: 3 0RF
Metamucil Fiber Singles 3.4 gram Powder In Packet
1 packet PO DAILY 30 Days Qty: 30 0RF
sennosides [Senna Laxative] 8.6 mg Tablet
17.2 mg PO HS 30 Days Qty: 30 0RF
pantoprazole 20 mg Tablet,Delayed Release (Dr/Ec)
20 mg PO DAILY 30 Days Qty: 30 0RF
levothyroxine 50 mcg Tablet
50 mcg PO DAILY @ 0600 30 Days Qty: 30 0RF
cholecalciferol (vitamin D3) 50 mcg (2,000 unit) Tablet
50 mcg PO DAILY 30 Days Qty: 30 0RF
atorvastatin 80 mg Tablet
80 mg PO QPM 30 Days Qty: 30 0RF
venlafaxine 75 MG capsule,extended release 24hr
225 mg PO DAILY Qty: 90 0RF
ezetimibe 10 mg Tablet
10 mg PO HS 30 Days Qty: 30 0RF
Activity Restrictions/Additional Instructions:
Continue present medications and therapy. Acetaminophen 650 mg every 6 hours for pain. You may use ice or cold compresses to the area for 20 to 30 minutes 4-5 times a day. Any changes please return immediately.
Interventions
Interventions:
*Risk Screen - Suicide Last Done: 02/20/24 16:50
*Neglect/Abuse Screening Last Done: 02/20/24 16:50
ED- Neurological Assessment Last Done: 02/20/24 18:35
ED-Skin Assessment Last Done: 02/20/24 18:35
Discharge Date and Time
Print Language: GERMAN
[2024-02-20 19:15] VITALS: BP 145/70
== END 2024-02-20 19:19 | disposition home or self-care (01) ==
LOC: EMR 16:35
PROVIDERS: EMERGENCY PHYSICIAN Emergency Medicine; FAMILY PHYSICIAN Family Medicine
DX: S09.90XA Unspecified injury of head, initial encounter (principal); W19.XXXA Unspecified fall, initial encounter; Z87.891 Personal history of nicotine dependence
CPT/HCPCS: 99284; 70450

== ENCOUNTER → 2024-03-02 10:07 | Outpatient (REF) | payer OTHER, SELFPAY ==
[2024-03-02 12:39] LABS: Hematocrit 38.7 % (37.0-47.0); Hemoglobin 13.1 g/dL (12.0-16.0); Mean Corp Hgb Conc. 33.9 g/dL (33.0-37.0); Mean Corpuscular Volume 82.7 fL (81.0-99.0); Mean Platelet Volume 9.8 fL (7.4-10.4); Platelet Count 356 10^3/uL (130-400); Red Blood Cell Count 4.68 10^6/uL (4.20-5.40); Red Cell Dist. Width 14.3 % (11.5-14.5)
[2024-03-02 13:57] LABS: ALT (SGPT) 25 U/L (0-35); AST (SGOT) 26 U/L (14-36); Albumin 4.2 g/dl (3.5-5.0); Alkaline Phosphatase 108 U/L (38-126); Blood Urea Nitrogen 13 mg/dl (7-17); Calcium 9.2 mg/dl (8.4-10.2); Carbon Dioxide 27 mmol/L (22-30); Chloride 102 mmol/L (98-107); Glucose 217 mg/dl (70-99); Potassium 3.6 mmol/L (3.5-5.1); Sodium 141 mmol/L (135-145); Total Bilirubin 0.4 mg/dl (0.2-1.3); eGFR > 60.00
== END ==
LOC: HWLAB 10:07
PROVIDERS: ATTENDING PHYSICIAN Family Medicine
DX: I63.9 Cerebral infarction, unspecified (principal); E11.65 Type 2 diabetes mellitus with hyperglycemia; F33.9 Major depressive disorder, recurrent, unspecified; E78.2 Mixed hyperlipidemia
CPT/HCPCS: 36415; 80053; 85027

== ENCOUNTER → 2024-04-03 10:17 | Outpatient (REF) | payer OTHER, SELFPAY ==
[2024-04-03 12:46] LABS: Free T4 1.14 ng/dl (0.78-2.19)
[2024-04-03 13:00] LABS: TSH 1.08 uIU/ml (0.47-4.68)
== END ==
LOC: HWLAB 10:17
PROVIDERS: ATTENDING PHYSICIAN Family Medicine
DX: I63.9 Cerebral infarction, unspecified (principal); E11.65 Type 2 diabetes mellitus with hyperglycemia; F33.9 Major depressive disorder, recurrent, unspecified; E78.2 Mixed hyperlipidemia
CPT/HCPCS: 36415; 84439; 84443

== ENCOUNTER 2024-04-17 10:49 | Outpatient (RCR) | payer OTHER, SELFPAY | END 2024-04-17 23:59 | disposition home or self-care (01) | LOC: ROT 10:49 | PROVIDERS: ATTENDING PHYSICIAN Family Medicine | DX: I69.318 Other symptoms and signs involving cognitive functions following cerebral infarction (principal); I69.311 Memory deficit following cerebral infarction; I69.310 Attention and concentration deficit following cerebral infarction; Z73.6 Limitation of activities due to disability; R42 Dizziness and giddiness; I35.0 Nonrheumatic aortic (valve) stenosis; Z95.818 Presence of other cardiac implants and grafts | CPT/HCPCS: 96125; 97110; 97116; 97129; 97130; 97162; 97167; 97530; 97535 ==

== ENCOUNTER 2024-05-18 09:29 | Outpatient (RCR) | payer OTHER, SELFPAY | END 2024-05-18 23:59 | disposition home or self-care (01) | LOC: ROT 09:29 | PROVIDERS: ATTENDING PHYSICIAN Family Medicine | DX: I69.318 Other symptoms and signs involving cognitive functions following cerebral infarction (principal); I69.311 Memory deficit following cerebral infarction; I69.310 Attention and concentration deficit following cerebral infarction; Z73.6 Limitation of activities due to disability; I35.0 Nonrheumatic aortic (valve) stenosis; Z95.818 Presence of other cardiac implants and grafts; R42 Dizziness and giddiness | CPT/HCPCS: 97110; 97112; 97116; 97129; 97130; 97530; 97535; 97550 ==

== ENCOUNTER 2024-05-27 11:09 | Inpatient (IN) | payer OTHER, SELFPAY ==
[2024-05-27] VITALS (68 sets, daily range): BP systolic 102–158; BP diastolic 42–134; BMI 24.6; BMI 25.6
[2024-05-27 09:40] LABS: Glucose - Point of Care 88 mg/dl (70-99)
--- NOTE | 2024-05-27 09:43 | ED.CVA ---
History of Present Illness
General
Chief Complaint: CVA/TIA Symptoms
Source: patient, ambulance crew and previous radiology exam
Exam Limitations: none
Time Seen by Provider: 05/27/24 09:30
Nursing documentation reviewed up to this point in time: agreed with
Onset of Stroke Symptoms
Onset of symptoms known: No
Time pt last seen normal is known: No
History of Present Illness
History of Present Illness:
78-year-old female, prior stroke with some left-sided deficits mild, went to bed last night with some cough nausea viral type symptoms, woke up at 815? Some left-sided weakness, trouble putting her shoe on her left with headache nausea, back to bed
for a bit, called 911 EMS states her speech was initially clear but in the 20-minute transport became more garbled patient tells me she has a headache, she is moving all extremities, little bit unclear if she has baseline deficit after her
prior stroke or not
Additional history from spouse--- patient woke up at 6 AM to use the restroom clear speech at her baseline, around [phone] knocked on the door, garbled speech, could not put her left shoe on
Past History
Past History
ED Past Medical History: CVA, Hypercholesterolemia, NIDDM (Controlled by Diet) and Other (Fecal incontinence)
ED Past Surgical History: Appendectomy, Cholecystectomy, Orthopedic (Bilateral knee replacements, right shoulder replacement) and Other (Cataracts)
Social History
Tobacco: Former smoker
Alcohol: None
Drug: None
Personal:
Living: with family
Employment: Retired
Family History
Family History: Other (Mother with COPD father of brain cancer )
Phy Exam
Physical Exam
Physical Exam:
Physical Exam
General: 78-year-old female, nontoxic no overt signs of head or neck trauma
Neck: No tongue bite
Heart: Regular
Lungs: no acute respiratory distress. clear bilaterally
Abdomen: Nontender
Neuro: alert and oriented. Moves all extremities slight garbled speech
Skin: no rash
Psychiatric: cooperative
Extremities: no edema.
Course
Orders/Labs/Results
Orders:
Orders
05/27/24 09:35
Electrocardiogram (*1) Urgent
Reason for Study: Fatigue / Weakness
EKG- Treatment ONCE
05/27/24 09:36
CT HEAD STROKE ALERT W/o Cont Urgent
Comment:
Reason For Exam: aphasia lefe weakness
CT HEAD/NECK ANG STROKE ALERT Urgent
Comment:
Reason For Exam: aphaisa
05/27/24 09:37
CT Brain Perfusion Urgent
Comment:
Reason For Exam: aphasia wakeu up
05/27/24 09:38
Complete Blood Count/With Diff Urgent
Comprehensive Metabolic Panel Urgent
05/27/24 10:29
Tenecteplase [Tnkase] 16 mg Syringe [Syringe Non-Pump] 0 ml IV NOW
Provider explained risk/benefits to patient &/or caregiver?: Yes
Blood pressure: 124/58
05/27/24 10:37
COVID-19 Antigen Urgent
Source: Nasal Swab
Influenza A+B Rapid Molecular Urgent
SERGIO Source: Nasal Swab
Specimen Description:
CR Chest Portable - 1 View Urgent
Comment:
Reason For Exam: cough
Reason Study Needs to be Portable: Patient Unstable
05/27/24 10:42
NEUROLOGY CONSULT Urgent
Consulting Provider: Jitendra Clifford
Was physician already notified: Yes
Abnormal Lab Results
05/27/24
09:38
Hgb 11.5 L g/dL
(12.0-16.0)
Hct 35.8 L %
(37.0-47.0)
MCH 26.1 L pg
(27.0-31.0)
MCHC 32.1 L g/dL
(33.0-37.0)
Absolute Monos (auto) 0.9 H 10^3/uL
(0.1-0.6)
Lymphocytes % 19.4 L %
(20.5-51.1)
Monocytes % 10.7 H %
(1.7-9.3)
05/27/24 09:38
05/27/24 09:38
Vital Signs
Initial and Last Documented VS:
Initial Vital Signs
Pulse Resp Pulse Ox
82 18 93
05/27/24 09:35 05/27/24 09:35 05/27/24 09:35
Last Documented Vital Signs
Temp Pulse Resp BP Pulse Ox
98.3 F 88 18 156/70 97
05/27/24 09:37 05/27/24 10:36 05/27/24 10:36 05/27/24 10:40 05/27/24 10:33
MDM/Problems Addressed
Differential Diagnosis Includes:
Intracerebral hemorrhage, acute stroke, wake-up stroke, recrudescence,
MDM/Problems Addressed:
Weakness headache nausea vomiting slurred speech
Chronic conditions affecting care: HTN and Neurological disorder
Acute Exacerbation and/or Progression of Chronic Illness: HTN and Neurological disorder
*Radiology
Radiology exam reviewed: radiology read reviewed
*Pulse Oximetry
Patient hypoxic: no
*EKG
Interpreted by ED Provider?: Yes
Interpretation: normal
Comparison EKG: no comparison EKG present
Heart Rate: 78
Rate: normal
Rhythm: sinus
Ischemia: no ischemia
*Fuels Engineer Interpretation
Rate: normal
Interpretation: normal
Heart Rate: 78
*Critical Care Note
Total Time (30-74mins, 75-104mins- exclusive of procedures): 43
Update Note
Update Note:
Update shared decision making myself neurology radiology reports reviewed spouse grandson, right around 4-1/2 hours from last normal has a posterior clot with ischemic penumbra, risks and benefits reviewed of TNK including 5% bleeding, also
discussed potential transfer for thrombectomy patient family does not appear interested in that at this time
CRITICAL CARE STATEMENT: A total of 43 minutes of critical care time was provided for this patient. This includes management of unstable vital signs, evaluation of the patient at bedside, reviewing the patient's pertinent medical records discussion
with EMS providers and patient's family in addition to discussion with consultants, review of old EKGs and review of pertinent medical records. This time with separate from time utilized to perform the aforementioned documented procedures
ED Attending Note
-
Portions of this chart may have been created with voice recognition software.� Occasional wrong word or��sound alike� substitutions may have occurred due to the inherent limitations of voice recognition software.
Discharge Plan
Departure
Patient Disposition: Admit
Date of Disposition: 05/27/24
Time of Disposition: 10:52
Admit to: ICU
Presentation/result/management discussed w/ accepting MD/DO: Hospitalist
Patient with high blood pressure during this ER visit?: No
Condition: Serious
Covid-19: Not Applicable
Discharge Problem:
CVA (cerebral vascular accident)
Prescriptions:
No Action
quetiapine [Seroquel] 25 mg Tablet
25 mg PO HS
glimepiride 1 mg Tablet
1 mg PO BID
estradiol 0.01 % (0.1 mg/gram) Cream
1 appful VAGINAL TUFR
trazodone 50 MG tablet
50 mg PO HS
clotrimazole 1 % cream
1 applic TOPICAL BID
Brilinta 90 mg tablet
90 mg PO BID
amlodipine 5 mg Tablet
5 mg PO DAILY Qty: 90 0RF
miconazole nitrate [Miconazorb AF] 2 % Powder
1 applic topical BIDPRN PRN (Reason: IRRITATION/REDDNESS) 30 Days Qty: 1 0RF
docusate sodium 100 mg Capsule
100 mg PO BID 30 Days Qty: 60 0RF
bisacodyl 5 mg Tablet,Delayed Release (Dr/Ec)
10 mg PO DAILYPRN PRN (Reason: constipation) 30 Days Qty: 3 0RF
Metamucil Fiber Singles 3.4 gram Powder In Packet
1 packet PO DAILY 30 Days Qty: 30 0RF
sennosides [Senna Laxative] 8.6 mg Tablet
17.2 mg PO HS 30 Days Qty: 30 0RF
pantoprazole 20 mg Tablet,Delayed Release (Dr/Ec)
20 mg PO DAILY 30 Days Qty: 30 0RF
levothyroxine 50 mcg Tablet
50 mcg PO DAILY @ 0600 30 Days Qty: 30 0RF
cholecalciferol (vitamin D3) 50 mcg (2,000 unit) Tablet
50 mcg PO DAILY 30 Days Qty: 30 0RF
atorvastatin 80 mg Tablet
80 mg PO QPM 30 Days Qty: 30 0RF
venlafaxine 75 MG capsule,extended release 24hr
225 mg PO DAILY Qty: 90 0RF
ezetimibe 10 mg Tablet
10 mg PO HS 30 Days Qty: 30 0RF
Referrals:
Kenny Turner MD [Family Provider] -
Interventions
Interventions:
*Risk Screen - Suicide Last Done: 05/27/24 09:32
*General Assessment Last Done: 05/27/24 09:32
*Neglect/Abuse Screening Last Done: 05/27/24 09:32
ED- Fall Risk Assessment Last Done: 05/27/24 09:32
*ED COVID-19 Vaccine History Last Done: 05/27/24 10:11
ED- Pulmonary Assessment Last Done: 05/27/24 10:43
ED- Neurological Assessment Last Done: 05/27/24 10:11
ED- Cardiac Assessment Last Done: 05/27/24 10:16
Discharge Date and Time
Print Language: TAJIK
[2024-05-27 09:48] LABS: % Basophils 0.4 % (0-2); % Eosinophils 0.4 % (0-6); % Immature Granulocytes 0.2 % (0-0.5); % Lymphocytes 19.4 % (20.5-51.1); % Monocytes 10.7 % (1.7-9.3); % Neutrophils 68.9 % (42.2-75.2); Absolute Lymphocytes 1.6 10^3/uL (1.2-3.4); Absolute Monocytes 0.9 10^3/uL (0.1-0.6); Absolute Neutrophils 5.7 10^3/uL (1.4-6.5); Hematocrit 35.8 % (37.0-47.0); Hemoglobin 11.5 g/dL (12.0-16.0); Mean Corp Hgb Conc. 32.1 g/dL (33.0-37.0); Mean Corpuscular Hgb 26.1 pg (27.0-31.0); Mean Corpuscular Volume 81.2 fL (81.0-99.0); Mean Platelet Volume 9.7 fL (7.4-10.4); Nucleated Red Blood Cells % 0 %; Platelet Count 273 10^3/uL (130-400); Red Blood Cell Count 4.41 10^6/uL (4.20-5.40); Red Cell Dist. Width 13.9 % (11.5-14.5); White Blood Cell Count 8.3 10^3/uL (4.8-10.8)
[2024-05-27 10:01] LABS: ALT (SGPT) 21 U/L (0-35); AST (SGOT) 32 U/L (14-36); Albumin 4.2 g/dl (3.5-5.0); Alkaline Phosphatase 99 U/L (38-126); Blood Urea Nitrogen 16 mg/dl (7-17); Calcium 8.6 mg/dl (8.4-10.2); Carbon Dioxide 25 mmol/L (22-30); Chloride 103 mmol/L (98-107); Glucose 90 mg/dl (70-99); Potassium 4.2 mmol/L (3.5-5.1); Sodium 139 mmol/L (135-145); Total Bilirubin 0.4 mg/dl (0.2-1.3); Total Protein 7.4 g/dl (6.3-8.2); eGFR 56.95
[2024-05-27] MEDS: TNKASE 3.2 MG IV (10:35)
--- NOTE | 2024-05-27 10:46 | CON.NEURO ---
Neuro Assessment/Plan
Assessment
head CT no bleed, +chronic infarcts right frontal, right parietal, medial left occipital, cerebellum
CTA head/neck LVO Right CAFE AIDE p1-p2
perfusion: right CAFE AIDE territory core infarct 11 cc, penumbra 42 cc
Patient wake up stroke 8:30 am, last seen normal 6 am
she is almost right at 4.5 hours from last known normal
as thrombectomy is not immediately available, decision to treat with TNK believing the benefits outweigh risks
discussed with family transfer to thrombectomy capable center after TNK vs monitoring here
Consultation
Order
Date of Consultation: 05/27/24
Requesting Provider: Sanjeev Paul
Reason for Consult: stroke
Subjective/Objective
Subjective Data
Date of Service: May 27, 2024
78 year old woman, h/o stroke residual left sided weakness, left sided pulsion when ambulating. last seen normal by 6 am, she ambulated to the bathroom. woke up at 8:30 am with slurred speech, worsening of left sided weakness.
Objective Data
Vital Signs
Temp Pulse Resp BP Pulse Ox
36.8 C 88 18 156/70 97
05/27/24 09:37 05/27/24 10:36 05/27/24 10:36 05/27/24 10:40 05/27/24 10:33
Lab Results
05/27/24 09:38
05/27/24 09:38
Sodium 139 mmol/L (135-145) 05/27/24 09:38
Potassium 4.2 mmol/L (3.5-5.1) 05/27/24 09:38
BUN 16 mg/dl (7-17) 05/27/24 09:38
Glucose 90 mg/dl (70-99) 05/27/24 09:38
Calcium 8.6 mg/dl (8.4-10.2) 05/27/24 09:38
Patient Allergies
No Known Allergies Allergy (Verified 02/20/24 16:52)
CVA Assessment
Onset of Stroke Symptoms
Onset of symptoms known: Yes
Date of onset of symptoms: 05/27/24
Time of onset of symptoms: 08:30
Date last time pt seen normal: 05/27/24
Time last time pt seen normal: 06:00
NIH Stroke Score
Level of Consciousness: 0 - Alert
LOC Questions: 0-Answers both correctly
LOC Commands: 0-Performs both correctly
Best Horizontal Gaze: 0-Normal
Visual [place]: 2=Full hemianopia
Facial Palsy: 0=Normal, symmetrical
Motor - Right Arm: 0=No drift 10 seconds
Motor - Left Arm: 0=No drift 10 seconds
Motor - Right Le-No drift 5 seconds
Motor - Left Le-No drift 5 seconds
Limb Ataxia: 0-Absent
Sensation: 0-Normal
Best Language: 0-No aphasia
Dysarthria: 1-Mild slurring
Extinction and Inattention: 1-Sensory inattention
Total Score:: 4
Physical Exam
-
Awake, alert, oriented to age not month
mildly dysarthric, language intact
L homonymous hemianopsia
sensation intact touch/pin with L sided sensory neglect
Medications
-
Home Medications
�Medication �Instructions �Recorded
amlodipine 5 mg tablet 5 mg PO DAILY #90 tabs 04/22/22
clotrimazole 1 % topical cream 1 applic topical BID diaper rash 01/23/24
estradiol 0.01% (0.1 mg/gram) 1 appful vaginal TUFR Hormonal 01/23/24
vaginal cream Agent
glimepiride 1 mg tablet 1 mg PO BID Diabetes 01/23/24
quetiapine 25 mg tablet (Seroquel) 25 mg PO HS Mental Health/Anxiety 01/23/24
trazodone 50 mg tablet 50 mg PO HS Sleep 01/23/24
ticagrelor 90 mg tablet (Brilinta) 90 mg PO BID Blood Clot 01/24/24
Prevention/Tx
atorvastatin 80 mg tablet 80 mg PO QPM High Cholesterol 30 02/06/24
days #30 tabs
bisacodyl 5 mg tablet,delayed 10 mg (2 x 5 mg) PO DAILYPRN PRN 02/06/24
release constipation 30 days #3 tabs
cholecalciferol (vitamin D3) 50 50 mcg PO DAILY Supplement 30 days 02/06/24
mcg (2,000 unit) tablet #30 tabs
docusate sodium 100 mg capsule 100 mg PO BID Constipation 30 days 02/06/24
#60 caps
ezetimibe 10 mg tablet 10 mg PO HS cholesterol 30 days 02/06/24
#30 tabs
levothyroxine 50 mcg tablet 50 mcg PO DAILY @ 0600 hypothyroid 02/06/24
30 days #30 tabs
miconazole nitrate 2 % topical 1 applic topical BIDPRN PRN 02/06/24
powder (Miconazorb AF) IRRITATION/REDDNESS 30 days #1
container
pantoprazole 20 mg tablet,delayed 20 mg PO DAILY gerd 30 days #30 02/06/24
release tabs
psyllium husk (aspartame) 3.4 gram 1 packet PO DAILY bowel 30 days 02/06/24
oral powder packet (Metamucil #30 packets
Fiber Singles)
sennosides 8.6 mg tablet (Senna 17.2 mg (2 x 8.6 mg) PO HS 30 days 02/06/24
Laxative) #30 tabs
venlafaxine 75 mg capsule,extended 225 mg (3 x 75 mg) PO DAILY Mental 02/06/24
release 24 hr Health/Anxiety #90 caps
--- NOTE | 2024-05-27 11:30 | PTCARENOTE ---
Admitted fro ED s/p TNK. Initial NIH done with ER nurse at the bedside Total score 2 . 1 hour post TNK 4 . see neuro check form .
[2024-05-27 11:34] LABS: COVID-19 Antigen Negative (Negative)
--- NOTE | 2024-05-27 12:26 | HPS.HSE ---
Addendum entered and electronically signed by Carol Ann Bermudez MD 05/27/24 19:08:
I personally performed a history and physical exam of the patient and discussed management with the resident. I reviewed the resident's note and agree with the documented findings and plan of care HPI/CC.
GENERAL: well developed, well nourished, female in no apparent distress
HEENT: NC/AT--speech somewhat disjointed but able to communicate her thoughts
HEART: regular rate and rhythm, +S1, +S2
LUNGS : clear to auscultation bilaterally
ABDOM: soft, nontender, nondistended, + bowel sounds
EXT: no cyanosis, clubbing, or edema
NEUROLOGIC: CN 2-12 intact--weak left leg 4/5 rest of extremities 5/5--very restless left foot
Acute Ischemic Stroke --most likely--pt has had 3 prior most recent in Jan 2024 with TNK at that time--seems to have some deficits as needs to help her on a good day--CT head and CTA reviewed--no acute findings but new occlusion of right
posterior cerebral artery--admit to ICU--neurochecks--hold antiplatelet agents--at 24 hour isabelle, PT/OT/MRI/PM&R evals--permissive HTN for 24 hours--apprec neuro/forestry conservation worker
Essential HTN-- target systolic 140-180, diastolic less than 105 - Hold home antihypertensives- Labetalol IV as needed
HLD/Hx Stroke- Continue Statins
NIDDM- Follow CMP
Influenza A positive--unclear if any relation to stroke (doubt)- < 48 hours since onset- Start Oseltamivir x 5 d
DVT proph--SCDs
code status--FULL CODE
Original Note:
Family Physician
-
Family Physician: Kenny Turner
Chief Complaint
-
Slurred Speech, Unsteady Gait, Left Sided Weakness
History of Present Illness
Mrs Buchanan is an 78-year-old woman with a past medical history of hyperlipidemia, [id number] diabetes mellitus, hypertension, and 3 prior strokes the most recent of which was in January 2025 and was treated with TNK, who is presenting
with focal neurologic deficits. Patient is with her . states that the patient initially woke up at 6:30 AM this morning, and rang the sofia on the bedroom for him to help her with her morning wake up routine. At this time the
noted that the patient was acting and appeared normal. The patient's helped the patient up, and the patient was able to ambulate properly to the bathroom and use it. The patient subsequently went back to sleep. says that
around 8:15 AM, he heard a loud noise. When he went to go investigate, the patient was trying to get through the bedroom door without being able to open it. The patient's noted that the patient exhibited a wobbly gait, slurred speech,
glassy eyes, and upon trying to get her to put her shoes on, had trouble getting her left foot in the proper position to put her shoe on. The patient's called EMS and while being transferred, the EMS noted that the patient's slurred speech
progressively worsened on the ride over.
In the emergency department, blood pressure was 156/70 and the rest of the vital signs were stable. Chest x-ray was negative, CT head without contrast showed chronic senescent changes and multiple chronic infarcts. CT angiogram of the head showed
a new occlusion of the right posterior cerebral artery. Patient received TNK in the ED under the care of neurology prior to transfer to the ICU.
Medical History
Past Medical History
Past Medical History: Reports Other (Hyperlipidemia, [id number] diabetes mellitus, CVA X3, hypertension)
Past Surgical History: Reports Appendectomy, Cholecystectomy and Orthopedic
Social History
Tobacco: Former Smoker (Quit 50 years ago.)
Alcohol: None
Drug: None
Living: With Family
Family History
Family History: Not pertinent
Allergies / Home Medications
Allergies reflects when Allergies were last updated in [employer].
Home Medications with original date entered in [employer]
Allergy/Medication List:
No known drug allergies.
Review of Systems
-
History Source: Patient
A 12 point ROS was completed and negative except as noted: Yes
Physical Exam
Vital Signs
Vital Signs
Temp Pulse Resp BP Pulse Ox
98.0 F 90 25 119/87 97
05/27/24 11:55 05/27/24 11:36 05/27/24 11:36 05/27/24 11:21 05/27/24 10:33
Physical Exam
General: Conversant and Other (Restless)
HEENT: NormoCephalic and Anicteric
Respiratory: Clear and Non Labored Respirations
Cardiac: S1/S2 and Regular Rhythm
GI: Soft, Non Tender and Non Distended
Musculoskeletal: Clubbing, No Clubbing and Cyanosis
Skin: Warm
Neuro: Awake and Other (Follows commands. 4/5 Motor Strength in the LUE and LLE; per , patient chronically weak on that side, but more so today. )
Laboratory Results
-
05/27/24 09:38
05/27/24 09:38
Laboratory Results
Total Bilirubin 0.4 mg/dl (0.2-1.3) 05/27/24 09:38
AST 32 U/L (14-36) 05/27/24 09:38
ALT 21 U/L (0-35) 05/27/24 09:38
Alkaline Phosphatase 99 U/L (38-126) 05/27/24 09:38
Data Reviewed
-
CT Scan: Report Reviewed by me and Discussed with Patient
Lab Data: Labs Reviewed by me and Discussed with Patient
Impression/Plan
-
1. Acute Ischemic Stroke
- History of 3 prior strokes with residual weakness on left per
- CT head 05/27/2024: Reviewed, chronic senescent changes and multiple chronic infarcts. No acute intracranial hemorrhage or appreciable new acute infarct within the limitations of extensive small vessel ischemic disease. An MRI would be more
sensitive for the evaluation of acute ischemia.
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 Chronic high-grade short segment stenosis of the M2 segment of the right middle cerebral artery, similar compared to the CT angiogram from 01/23/2024. Stable
50% stenosis of the right carotid bulb. CT perfusion: right BORING MACHINE OPERATOR HORIZONTAL territory core infarct 11 cc, penumbra 42 cc
- NIH Stroke Scale 6 in the ED; 0 s/p TNK in ICU; continue neurologic checks
- Monitor for bleeding for 24 h
- Hold Brilinta for 24h
- Bed Rest for 24 hours; then PT/OT
- Swallow Study done; okay to advance diet
2. Essential HTN
- Appreciate Web Marketing Strategist reccs
- Permissive HTN for first 24 hours; target systolic 140-180, diastolic less than 105
- Hold home antihypertensives
- Labetalol IV as needed
3. HLD/Hx Stroke
- Continue Statins
4. NIDDM
- Follow CMP
5. Influenza A
- < 48 hours since onset
- Start Oseltamivir x 5 d
--- NOTE | 2024-05-27 12:35 | CON.INTV ---
Consultation
Consultation Request
Date/Time Consultation Requested: 05/27/2023
Date/Time Consultation Performed: 05/27/2024
Requesting Provider: Dr. Paul
Performing Provider: Dr. Darryl Stewart
Reason for Consultation: Acute CVA status post tenecteplase
Medical History
-
History of Present Illness:
78-year-old woman with history of prior stroke with left-sided deficit which is mild, apparently went to bed last night with some nausea and viral type symptoms, woke up early in the morning with left-sided weakness, was not able to get dressed,,
complaining of headache, nausea, 911 was called in. Patient became dysarthric during transportation.
states that patient woke up at 6 AM to use the bathroom back on her baseline, around 830 he found her with symptoms as above.
She was evaluated in the emergency room by neurology and she was deemed candidate for tenecteplase.
Past Medical History
Past Medical History: Other ( See assessment and plan)
Past Surgical History: None (See above)
Social History
Tobacco: Non-smoker
Alcohol: None
Drug: None
Personal:
Living: With Family
Family History
Family History: Other (Mother with history of COPD, father with brain cancer. 2 children healthy)
Allergies / Home Medications
Allergies
Allergy/AdvReac Type Severity Reaction Status Date / Time
No Known Allergies Allergy Verified 02/20/24 16:52
Home Medications
�Medication �Instructions �Recorded �Confirmed �Last Taken �Type
amlodipine 5 mg tablet 5 mg PO DAILY #90 tabs 04/22/22 01/30/24 Unknown Rx
clotrimazole 1 % topical cream 1 applic topical BID diaper rash 01/23/24 01/30/24 Unknown History
estradiol 0.01% (0.1 mg/gram) 1 appful vaginal TUFR Hormonal 01/23/24 01/30/24 Unknown History
vaginal cream Agent
glimepiride 1 mg tablet 1 mg PO BID Diabetes 01/23/24 01/30/24 Unknown History
quetiapine 25 mg tablet (Seroquel) 25 mg PO HS Mental Health/Anxiety 01/23/24 01/30/24 Unknown History
trazodone 50 mg tablet 50 mg PO HS Sleep 01/23/24 01/30/24 Unknown History
ticagrelor 90 mg tablet (Brilinta) 90 mg PO BID Blood Clot 01/24/24 01/30/24 Unknown History
Prevention/Tx
atorvastatin 80 mg tablet 80 mg PO QPM High Cholesterol 30 02/06/24 Unknown Rx
days #30 tabs
bisacodyl 5 mg tablet,delayed 10 mg (2 x 5 mg) PO DAILYPRN PRN 02/06/24 Unknown Rx
release constipation 30 days #3 tabs
cholecalciferol (vitamin D3) 50 50 mcg PO DAILY Supplement 30 days 02/06/24 Unknown Rx
mcg (2,000 unit) tablet #30 tabs
docusate sodium 100 mg capsule 100 mg PO BID Constipation 30 days 02/06/24 Unknown Rx
#60 caps
ezetimibe 10 mg tablet 10 mg PO HS cholesterol 30 days 02/06/24 Unknown Rx
#30 tabs
levothyroxine 50 mcg tablet 50 mcg PO DAILY @ 0600 hypothyroid 02/06/24 Unknown Rx
30 days #30 tabs
miconazole nitrate 2 % topical 1 applic topical BIDPRN PRN 02/06/24 Unknown Rx
powder (Miconazorb AF) IRRITATION/REDDNESS 30 days #1
container
pantoprazole 20 mg tablet,delayed 20 mg PO DAILY gerd 30 days #30 02/06/24 Unknown Rx
release tabs
psyllium husk (aspartame) 3.4 gram 1 packet PO DAILY bowel 30 days 02/06/24 Unknown Rx
oral powder packet (Metamucil #30 packets
Fiber Singles)
sennosides 8.6 mg tablet (Senna 17.2 mg (2 x 8.6 mg) PO HS 30 days 02/06/24 Unknown Rx
Laxative) #30 tabs
venlafaxine 75 mg capsule,extended 225 mg (3 x 75 mg) PO DAILY Mental 02/06/24 01/30/24 Unknown Rx
release 24 hr Health/Anxiety #90 caps
Review of Systems
-
Unable to Obtain full review of systems at this time due to: Acuity and Other (Difficult to obtain)
Vitals / Labs / Diagnostic Testing
Vital Signs
Temp Pulse Resp BP Pulse Ox
98.0 F 88 17 129/66 97
05/27/24 11:55 05/27/24 12:21 05/27/24 12:21 05/27/24 12:21 05/27/24 10:33
Lab Data
05/27/24 09:38
05/27/24 09:38
Microbiology
05/27/24 10:50 Nasal Swab Influenza Types A & B (ZOILA) - Final
Influenza A Positive, NAAT
Diagnostic Testing:
Physical Exam
-
HEENT: Normocephalic
Cardiovascular: S1/S2
Respiratory: Clear and Non-Labored Respirations
GI: Soft and Non Distended
Neurology: Awake, Alert, Other (Chronic mild left-sided weakness) and Other (Following commands.)
Skin: Warm
General: Comfortable
Assessment
-
78-year-old woman with history of multiple stroke, admitted for change in mental status this morning including slurred speech, was unable to put her shoe on. She went to bed with flulike symptoms and nausea. Influenza A is also positive. Deemed
candidate for tenecteplase by neurology. Transferred to the critical care unit after tenecteplase infusion.
Acute CVA status post tenecteplase 05/27/2024
CT head 05/27/2024: Reviewed, chronic senescent changes and multiple chronic infarcts. No acute intracranial hemorrhage or appreciable new acute infarct within the limitations of extensive small vessel ischemic disease. An MRI would be more
sensitive for the evaluation of acute ischemia.
CT angiogram:New occlusion of the right posterior cerebral artery at the P1-P2 junction.
Chronic high-grade short segment stenosis of the M2 segment of the right middle cerebral artery, similar compared to the CT angiogram from 01/23/2024.
Stable 50% stenosis of the right carotid bulb.
CT perfusion: right [employer]ANCE TE[employer]ER territory core infarct 11 cc, penumbra 42 cc
Influenza A
-
PMH:
Acute right MCA territory CVA 01/2024 status post tenecteplase
History of stroke in 2019 and again in 2020 complicated by subdural bleed, history of hyperlipidemia, diabetes, bilateral knee replacement, gait dysfunction walks with walker. Records also suggest history of fecal incontinence, fibromyalgia.
History of appendectomy, cholecystectomy, right shoulder replacement, cataracts, History of nephrolithiasis with lithotripsy
Assessment and plan:
Continue with management per stroke protocol.
Monitor for bleeding for the next 24 hours in the ICU.
Neurology following
Antiplatelets to restart in 24 hours.
MRI and 24-hour
Bed rest
Frequent neurological checks per protocol
Follow-up blood pressures-permissive hypertension first 24 hours.
Target systolic pressure 140-1 80, diastolic less than 105
Labetalol IV as needed
IV Cardene will be needed if necessary
Patient on oral antihypertensive therapy, hold for now
-
History of Linq implant 2016, negative for arrhythmias, explanted 2020
Recent echo 01/24/2024 with normal biventricular function.
-
Statins will continue
-
Currently normoglycemic-follow
Sliding scale for now
Usually on hypoglycemic agents
-
Eventual speech pathology evaluation
Physical therapy evaluation
-
Hopefully can restart oral medications as an outpatient
Influenza A positive this admission
Chest x-ray 05/27/2024 normal
Start Tamiflu for 5 days
It is noted that it was discussed with her during prior admissions in regards to obstructive sleep apnea. There is no sleep study available. Still recommended.
It is noted in previous chart the patient is DNR status. Will need to confirm with family
Reviewed with critical care nursing, respiratory care, pharmacy, case management
at the bedside contributing to history.
Critical care statement: A total of 31 minutes of critical care time was provided for this patient today. This includes management of unstable vital signs, evaluation of the patient at bedside, reviewing the patient's pertinent medical records
including radiographs, microbiology, laboratory evaluations and discussion with primary team, critical care nursing, and respiratory therapy.
--- NOTE | 2024-05-27 14:36 | PTOTSP ---
Speech Pathology:
Clinical Swallow Evaluation
78F admitted for CVA/TIA workup p/w a functional oropharyngeal swallow. No overt s/s of aspiration or penetration demonstrated with all PO trials. Unable to r/o silent aspiration at bedside. [employer] service to follow re: to assess tolerance of current
diet level and provide cognitive linguistic evaluation as able if MRI positive.
Recommend:
1. Regular textures (IDDSI 7), thin liquids (IDDSI 0)
2. Meds as best tolerated
3. General aspiration precautions
4. [employer] service to follow up re: to assess diet level tolerance and provide cognitive linguistic evaluation as able if MRI positive.
[2024-05-27] MEDS: TAMIFLU 30 MG PO ×2 (15:05→19:04)
[2024-05-27] MEDS: LIPITOR 80 MG PO (19:04)
[2024-05-27] MEDS: AMARYL PO (19:23)
--- NOTE | 2024-05-27 20:00 | PTCARENOTE ---
Received pt via handoff. Pt AAOx3 able to move all extremities, slight weakness in the left upper and lower extremity but pt claims it is from past CVA's. NSR, palpable pulses. Lung sounds are diminished throughout. Hypoactive bowel sounds in all
4Q. Pt incontinent of urine. Skin is CDI. No gtts currently running. Call sofia at bedside.
[2024-05-27] MEDS: DESYREL 50 MG PO (22:18)
[2024-05-27] MEDS: ZETIA 10 MG PO (22:18)
[2024-05-28] VITALS (53 sets, daily range): BP systolic 85–231; BP diastolic 42–106; PULSE 83; BMI 25.2
--- NOTE | 2024-05-28 | PTCARENOTE ---
All systems reassessed. NIH score remains the same. Call sofia at bedside.
[2024-05-28 03:33] LABS: Hematocrit 35.7 % (37.0-47.0); Hemoglobin 11.6 g/dL (12.0-16.0); Mean Corp Hgb Conc. 32.5 g/dL (33.0-37.0); Mean Corpuscular Hgb 25.9 pg (27.0-31.0); Mean Corpuscular Volume 79.7 fL (81.0-99.0); Mean Platelet Volume 9.6 fL (7.4-10.4); Platelet Count 282 10^3/uL (130-400); Red Blood Cell Count 4.48 10^6/uL (4.20-5.40); Red Cell Dist. Width 13.8 % (11.5-14.5); White Blood Cell Count 7.7 10^3/uL (4.8-10.8)
[2024-05-28 03:47] LABS: INR 1.04; PT 13.9 Sec (11.4-14.6)
[2024-05-28 03:48] LABS: APTT 31.7 Sec (23.4-35.0)
[2024-05-28 03:57] LABS: Blood Urea Nitrogen 15 mg/dl (7-17); Calcium 8.4 mg/dl (8.4-10.2); Carbon Dioxide 25 mmol/L (22-30); Chloride 102 mmol/L (98-107); Estimated Creatinine Clearance 35 ml/min; Glucose 96 mg/dl (70-99); HDL Cholesterol 41 mg/dl; LDL Cholesterol, Calculated 25 mg/dl; Potassium 3.8 mmol/L (3.5-5.1); Sodium 137 mmol/L (135-145); Total Cholesterol 88 mg/dl (50-199); Triglyceride 110 mg/dl (10-149); Very Low Density Lipoprotein 22 mg/dl (0-30); eGFR 56.95
[2024-05-28] MEDS: SYNTHROID 50 MCG PO (05:51)
--- NOTE | 2024-05-28 07:19 | W.PN.INTV ---
Today's Communication / Plan
Recommendations
MRI planning today, if stable can transfer
No new events, stable off pressors/on RA, she is OOB to chair
PT/OT evals, speech
Diet advanced, tolerating well
Transfer to floors today if MRI is stable, we will sign off upon transfer
Assessment
-
78-year-old woman with history of multiple stroke, admitted for change in mental status this morning including slurred speech, was unable to put her shoe on. She went to bed with flulike symptoms and nausea. Influenza A is also positive. Deemed
candidate for tenecteplase by neurology. Transferred to the critical care unit after tenecteplase infusion.
Acute CVA status post tenecteplase 05/27/2024
CT head 05/27/2024: Reviewed, chronic senescent changes and multiple chronic infarcts. No acute intracranial hemorrhage or appreciable new acute infarct within the limitations of extensive small vessel ischemic disease. An MRI would be more
sensitive for the evaluation of acute ischemia.
CT angiogram:New occlusion of the right posterior cerebral artery at the P1-P2 junction.
Chronic high-grade short segment stenosis of the M2 segment of the right middle cerebral artery, similar compared to the CT angiogram from 01/23/2024.
Stable 50% stenosis of the right carotid bulb.
CT perfusion: right F[employer] MECH[employer]IC territory core infarct 11 cc, penumbra 42 cc
Influenza A
-
PMH:
Acute right MCA territory CVA 01/2024 status post tenecteplase
History of stroke in 2019 and again in 2020 complicated by subdural bleed, history of hyperlipidemia, diabetes, bilateral knee replacement, gait dysfunction walks with walker. Records also suggest history of fecal incontinence, fibromyalgia.
History of appendectomy, cholecystectomy, right shoulder replacement, cataracts, History of nephrolithiasis with lithotripsy
Assessment and plan:
Continue with management per stroke protocol.
No signs of bleeding since admission
Frequent neurological checks per protocol
Neurology following
Antiplatelets to restart in 24 hours.
MRI today
Follow-up blood pressures-permissive hypertension first 24 hours.
Target systolic pressure 140-1 80, diastolic less than 105
Labetalol IV as needed
IV Cardene will be needed if necessary
Patient on oral antihypertensive therapy, hold for now
-
History of Linq implant 2016, negative for arrhythmias, explanted 2020
Recent echo 01/24/2024 with normal biventricular function.
Statins will continue
-
Currently normoglycemic-follow
Sliding scale for now
Usually on hypoglycemic agents
-
Eventual speech pathology evaluation
Physical therapy evaluation
Hopefully can restart oral medications as an outpatient
Influenza A positive this admission
Chest x-ray 05/27/2024 normal
Start Tamiflu for 5 days
It is noted that it was discussed with her during prior admissions in regards to obstructive sleep apnea. There is no sleep study available. Still recommended.
It is noted in previous chart the patient is DNR status. She is currently full code
Reviewed with critical care nursing, respiratory care, pharmacy, case management
at the bedside contributing to history.
Critical care statement: A total of 31 minutes of critical care time was provided for this patient today. This includes management of unstable vital signs, evaluation of the patient at bedside, reviewing the patient's pertinent medical records
including radiographs, microbiology, laboratory evaluations and discussion with primary team, critical care nursing, and respiratory therapy.
Subjective Dataa
Subjective Data
Date of Service:
Date of Service: May 28, 2024
Chief Complaint: [employer] Follow Up
Subjective:
No new events, stable on RA
Sitting in chair, at bedside
Objective Data
Data Reviewed
Vital Signs / I&O / Oxygen:
Vital Signs
Temp Pulse Resp BP Pulse Ox
98.3 F 86 29 132/79 94
05/28/24 03:55 05/28/24 07:15 05/28/24 07:15 05/28/24 07:00 05/28/24 07:15
Intake and Output
05/27/24 05/28/24 05/29/24
06:59 06:59 06:59
Intake Total 260 / 260
Output Total 200 / 200
Balance 60 / 60
SaO2 94
Physical Exam
General: Comfortable and Other (NAD)
HEENT: Normocephalic, Anicteric and Moist Mucous Membranes
Cardiovascular: S1-S2 and Regular Rhythm
Respiratory: Clear and Non-Labored Respirations
GI: Soft, Non Distended and Non Tender
Neurology: Awake, Alert, Oriented and No Motor Deficits
Skin: Warm, Dry and Good Color
Labs/Micro/Reports
Lab Data
05/28/24 03:12
05/28/24 03:12
Laboratory Results
05/28/24
03:12
PT 13.9
INR 1.04
APTT 31.7
Microbiology
05/27/24 10:50 Nasal Swab Influenza Types A & B (ZOILA) - Final
Influenza A Positive, NAAT
[2024-05-28] MEDS: VITAMIN D3 (cholecalciferol) 50 MCG PO (07:47)
[2024-05-28] MEDS: PROTONIX 20 MG PO (07:47)
[2024-05-28] MEDS: AMARYL 1 MG PO ×2 (07:47→17:13)
[2024-05-28] MEDS: TAMIFLU 30 MG PO ×2 (07:47→20:05)
[2024-05-28] MEDS: EFFEXOR XR 225 MG PO (07:47)
[2024-05-28] MEDS: NORVASC 5 MG PO (07:47)
--- NOTE | 2024-05-28 10:34 | CON.NEURO ---
Neuro Assessment/Plan
Assessment
head CT no bleed, +chronic infarcts right frontal, right parietal, medial left occipital, cerebellum
CTA head/neck LVO Right DUCK OPERATOR p1-p2
perfusion: right DUCK OPERATOR territory core infarct 11 cc, penumbra 42 cc
Patient wake up stroke 8:30 am, last seen normal 6 am
she is almost right at 4.5 hours from last known normal
as thrombectomy is not immediately available, decision to treat with TNK believing the benefits outweigh risks
discussed with family transfer to thrombectomy capable center after TNK vs monitoring here
Consultation
Order
Date of Service: 05/28/24
Neurology Follow up Note
HPI: This is an 78-year-old right-handed woman who presented to [facility] on 05/27/2024 with dysarthria. Ms. Buchanan reports no complaints. According to EMR the patient woke up at 6 AM on the day of presentation with dysarthria.
VS: 137/55-96/52, 82, afebrile.
EKG: NSR, QTc Int : 500 ms
PDMP: No recently prescribed medications
Labs: Normal glucose, WBCs, platelets, sodium, creatinine�1.0
Platelet function(08/12/20) 585 (no evidence of aspirin-induced platelet dysfunction).
Platelet React(08/12/20) - P2Y12 React Units- 225(Values less than 180 PRU suggests evidence of a P2Y12 inhibitor effect.)
Based on EMR patient was started on Brilinta 90 mg twice daily on 04/22/2022.
CTA head/neck-New occlusion of the right posterior cerebral artery at the P1-P2 junction, chronic high-grade R M2 stenosis
Brain MRI without anastasiya (05/28/2024)�acute right DUCK OPERATOR territory infarct
MAR: TNK given on 05/27/24 at 10:35 AM.
PMH: traumatic SDH(04/02/22), R MCA/left cerebellar strokes(01/23/2024, s/p TNK), R MCA stroke(07/2020), HTN, DLP, DM, hypothyroidism, MDD, ambulatory dysfunction,
PSH: LINQ implanttion (03/2017), explantation (02/09/2021), R shoulder arthroplasty, bilateral cataract surgery, bilateral TKA, cholecystectomy,
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
FH: Brother�brain tumor
All:NKDA
ROS:Constitutional: Negative for headache, change in strength, sensation of abnormal movements, confusion.
General: Well developed. In no acute distress.
Cardio: Regular rate and rhythm without murmur. Extremities are without cyanosis or edema.
Neuro:
Mental Status: Alert, oriented to self, president, month, not to year. Poor attention and impaired comprehension. Follows simple requests. Able to do simple calculation. No hemineglect.
Cranial Nerves: Pupils are equally round, surgical. EOMs full. Left homonymous hemianopsia, mild right ptosis. No nystagmus. V1-V3 intact to light touch and pinprick bilaterally, symmetric. Mild left facial weakness normal hearing AU. The
palate elevated well. SCMs and traps 5/5. Tongue midline. Mild dysarthria.
Motor: Limited exam due to cooperation, mild left hemiparesis
Reflexes: Limited exam due to cooperation
Sensory: Left hemisensory deficits
Coordination: No tremors, clonic movements.
Gait: deferred
Assessment and Plan:
I. Acute right DUCK OPERATOR territory stroke, status post TNK. Intracranial atherosclerosis? Medication noncompliance?
II. Influenza A. �Influenza A can increase the risk of stroke. The risk of stroke is higher in the days after a flu-like illness, and can be as much as 40% higher within 15 days.�The risk can remain elevated for up to 60 days
III. Subacute/chronic cryptogenic right MCA, L cerebellar strokes (01/23/2024, status post TNK)
IV. Chronic R MCA stroke(07/2020)
IV. Vascular encephalopathy.
-Continue telemetry
-Fall and aspiration precautions.
-Will contact patient's family to clarify medication administration routine
-Please check LDL
-Restart Brilinta with close neurochecks.
-Would defer work up for multifocal intracranial stenosis due to Influenza A at this time
-Please optimize glycemic control.
I personally reviewed all radiology and labs along with past medical records pertinent to current medical problems. Total time spent in patient care is 60 minutes.
Thank you for allowing us to participate in the care of this patient. We will continue to follow. Please do not hesitate to contact us with any questions or concerns.
Subjective/Objective
Subjective Data
Date of Service: May 28, 2024
Objective Data
Vital Signs
Temp Pulse Resp BP Pulse Ox
37.0 C 90 21 96/52 94
05/28/24 07:36 05/28/24 10:00 05/28/24 10:00 05/28/24 09:44 05/28/24 07:15
Lab Results
05/28/24 03:12
05/28/24 03:12
PT 13.9 Sec (11.4-14.6) 05/28/24 03:12
INR 1.04 05/28/24 03:12
APTT 31.7 Sec (23.4-35.0) 05/28/24 03:12
Sodium 137 mmol/L (135-145) 05/28/24 03:12
Potassium 3.8 mmol/L (3.5-5.1) 05/28/24 03:12
BUN 15 mg/dl (7-17) 05/28/24 03:12
Glucose 96 mg/dl (70-99) 05/28/24 03:12
Calcium 8.4 mg/dl (8.4-10.2) 05/28/24 03:12
LDL Cholesterol, Calc 25 mg/dl 05/28/24 03:12
Patient Allergies
No Known Allergies Allergy (Verified 02/20/24 16:52)
Medications
-
Active Medications
Generic Name Dose Route Start Last Admin
Trade Name Freq PRN Reason Stop Dose Admin
Acetaminophen 650 mg 05/27/24 13:38
Acetaminophen 325 Mg Tablet PO 06/24/24 13:37
Q4HPRN PRN
BENJAMIN, mild pain, or temp >100.4F
Amlodipine Besylate 5 mg 05/28/24 08:00 05/28/24 07:47
Amlodipine 5 Mg Tablet PO 06/25/24 07:59 5 mg
DAILY CHER Administration
Atorvastatin Calcium 80 mg 05/27/24 18:00 05/27/24 19:04
Atorvastatin (Lipitor) 80 Mg Tablet PO 06/24/24 17:59 80 mg
QPM CHER Administration
Bisacodyl 10 mg 05/27/24 11:36
Bisacodyl 10 Mg Rectal Suppository RECTAL 06/24/24 11:35
[id number] PRN
constipation
Cholecalciferol 50 mcg 05/28/24 08:00 05/28/24 07:47
Cholecalciferol (Vitamin D3) 50 Mcg Tablet (2,000 Units) PO 06/25/24 07:59 50 mcg
DAILY CHER Administration
Clotrimazole 1 applic 05/27/24 20:00
Clotrimazole 1% (Cream) 30 Gram Tube TOPICAL 06/24/24 19:59
BID CHER
Ezetimibe 10 mg 05/27/24 22:00 05/27/24 22:18
Ezetimibe (Zetia) 10 Mg Tablet PO 06/24/24 21:59 10 mg
HS CHER Administration
Glimepiride 1 mg 05/27/24 18:00 05/28/24 07:47
Glimepiride 1 Mg Tablet PO 06/24/24 17:59 1 mg
BID@0800,1700 CHER Administration
Sodium Chloride 250 mls @ 500 mls/hr 05/28/24 10:02
Nss IV 05/28/24 10:31
BOLUS ONE
Labetalol HCl 5 mg 05/28/24 10:01
Labetalol Hcl 5 Mg/1 Ml (20 Mg/4 Ml) Injection IV 06/25/24 07:46
Q6HPRN PRN
SBP > 180 or DBP > 105
Levothyroxine Sodium 50 mcg 05/28/24 06:00 05/28/24 05:51
Levothyroxine 50 Mcg Tablet PO 06/25/24 05:59 50 mcg
DAILY @ 0600 CHER Administration
Miconazole Nitrate 1 applic 05/27/24 13:46
Miconazole Powder Bottle TOPICAL 06/24/24 13:45
BIDPRN PRN
IRRITATION/REDDNESS
Oseltamivir Phosphate 30 mg 05/27/24 13:00 05/28/24 07:47
Oseltamivir (Tamiflu) 30 Mg Capsule PO 06/01/24 12:59 30 mg
BID CHER Administration
Pantoprazole Sodium 20 mg 05/28/24 08:00 05/28/24 07:47
Pantoprazole 20 Mg Delayed Release Tablet PO 06/25/24 07:59 20 mg
DAILY CHER Administration
Polyethylene Glycol 17 grams 05/27/24 11:36
Polyethylene Glycol Powder 17 Grams Packet PO 06/24/24 11:35
DAILYPRN PRN
constipation
Quetiapine Fumarate 25 mg 05/27/24 22:00
Quetiapine 25 Mg Tablet PO 06/24/24 21:59
HS CHER
Senna/Docusate Sodium 1 tablet 05/27/24 11:36
Docusate W/Senna (Subha-Colace) Tablet PO 06/24/24 11:35
BIDPRN PRN
constipation
Sodium Chloride 0 flush 05/27/24 12:00
Sodium Chloride 0.9% (Flush) Syringe IV 06/24/24 11:59
PER PROTOCOL CHER
Trazodone HCl 50 mg 05/27/24 22:00 05/27/24 22:18
Trazodone 50 Mg Tablet PO 06/24/24 21:59 50 mg
HS CHER Administration
Venlafaxine HCl 225 mg 05/28/24 08:00 05/28/24 07:47
Venlafaxine 75 Mg Extended Release Capsule PO 06/25/24 07:59 225 mg
DAILY CHER Administration
Home Medications
�Medication �Instructions �Recorded
amlodipine 5 mg tablet 5 mg PO DAILY #90 tabs 04/22/22
clotrimazole 1 % topical cream 1 applic topical BID diaper rash 01/23/24
estradiol 0.01% (0.1 mg/gram) 1 appful vaginal TUFR Hormonal 01/23/24
vaginal cream Agent
glimepiride 1 mg tablet 1 mg PO BID Diabetes 01/23/24
quetiapine 25 mg tablet (Seroquel) 25 mg PO HS Mental Health/Anxiety 01/23/24
trazodone 50 mg tablet 50 mg PO HS Sleep 01/23/24
ticagrelor 90 mg tablet (Brilinta) 90 mg PO BID Blood Clot 01/24/24
Prevention/Tx
atorvastatin 80 mg tablet 80 mg PO QPM High Cholesterol 30 02/06/24
days #30 tabs
bisacodyl 5 mg tablet,delayed 10 mg (2 x 5 mg) PO DAILYPRN PRN 02/06/24
release constipation 30 days #3 tabs
cholecalciferol (vitamin D3) 50 50 mcg PO DAILY Supplement 30 days 02/06/24
mcg (2,000 unit) tablet #30 tabs
docusate sodium 100 mg capsule 100 mg PO BID Constipation 30 days 02/06/24
#60 caps
ezetimibe 10 mg tablet 10 mg PO HS cholesterol 30 days 02/06/24
#30 tabs
levothyroxine 50 mcg tablet 50 mcg PO DAILY @ 0600 hypothyroid 02/06/24
30 days #30 tabs
miconazole nitrate 2 % topical 1 applic topical BIDPRN PRN 02/06/24
powder (Miconazorb AF) IRRITATION/REDDNESS 30 days #1
container
pantoprazole 20 mg tablet,delayed 20 mg PO DAILY gerd 30 days #30 02/06/24
release tabs
psyllium husk (aspartame) 3.4 gram 1 packet PO DAILY bowel 30 days 02/06/24
oral powder packet (Metamucil #30 packets
Fiber Singles)
sennosides 8.6 mg tablet (Senna 17.2 mg (2 x 8.6 mg) PO HS 30 days 02/06/24
Laxative) #30 tabs
venlafaxine 75 mg capsule,extended 225 mg (3 x 75 mg) PO DAILY Mental 02/06/24
release 24 hr Health/Anxiety #90 caps
Vital Signs and Labs
-
Vital Signs and Labs:
Vital Signs
Temp Pulse Resp BP Pulse Ox
37.0 C 92 27 85/46 94
05/28/24 07:36 05/28/24 10:36 05/28/24 10:36 05/28/24 10:36 05/28/24 07:15
Lab Results
05/28/24 03:12
05/28/24 03:12
PT 13.9 Sec (11.4-14.6) 05/28/24 03:12
INR 1.04 05/28/24 03:12
APTT 31.7 Sec (23.4-35.0) 05/28/24 03:12
Sodium 137 mmol/L (135-145) 05/28/24 03:12
Potassium 3.8 mmol/L (3.5-5.1) 05/28/24 03:12
BUN 15 mg/dl (7-17) 05/28/24 03:12
Glucose 96 mg/dl (70-99) 05/28/24 03:12
Calcium 8.4 mg/dl (8.4-10.2) 05/28/24 03:12
LDL Cholesterol, Calc 25 mg/dl 05/28/24 03:12
Medications
-
Medications:
Generic Name Dose Route Start Last Admin
Trade Name Freq PRN Reason Stop Dose Admin
Acetaminophen 650 mg 05/27/24 13:38
Acetaminophen 325 Mg Tablet PO 06/24/24 13:37
Q4HPRN PRN
BENJAMIN, mild pain, or temp >100.4F
Amlodipine Besylate 5 mg 05/28/24 08:00 05/28/24 07:47
Amlodipine 5 Mg Tablet PO 06/25/24 07:59 5 mg
DAILY CHER Administration
Atorvastatin Calcium 80 mg 05/27/24 18:00 05/27/24 19:04
Atorvastatin (Lipitor) 80 Mg Tablet PO 06/24/24 17:59 80 mg
QPM CHER Administration
Bisacodyl 10 mg 05/27/24 11:36
Bisacodyl 10 Mg Rectal Suppository RECTAL 06/24/24 11:35
[id number] PRN
constipation
Cholecalciferol 50 mcg 05/28/24 08:00 05/28/24 07:47
Cholecalciferol (Vitamin D3) 50 Mcg Tablet (2,000 Units) PO 06/25/24 07:59 50 mcg
DAILY CHER Administration
Clotrimazole 1 applic 05/27/24 20:00
Clotrimazole 1% (Cream) 30 Gram Tube TOPICAL 06/24/24 19:59
BID CHER
Ezetimibe 10 mg 05/27/24 22:00 05/27/24 22:18
Ezetimibe (Zetia) 10 Mg Tablet PO 06/24/24 21:59 10 mg
HS CHER Administration
Glimepiride 1 mg 05/27/24 18:00 05/28/24 07:47
Glimepiride 1 Mg Tablet PO 06/24/24 17:59 1 mg
BID@0800,1700 CHER Administration
Sodium Chloride 250 mls @ 500 mls/hr 05/28/24 10:02 05/28/24 10:42
Nss IV 05/28/24 10:31 250 mls
BOLUS ONE Administration
Labetalol HCl 5 mg 05/28/24 10:01
Labetalol Hcl 5 Mg/1 Ml (20 Mg/4 Ml) Injection IV 06/25/24 07:46
Q6HPRN PRN
SBP > 180 or DBP > 105
Levothyroxine Sodium 50 mcg 05/28/24 06:00 05/28/24 05:51
Levothyroxine 50 Mcg Tablet PO 06/25/24 05:59 50 mcg
DAILY @ 0600 CHER Administration
Miconazole Nitrate 1 applic 05/27/24 13:46
Miconazole Powder Bottle TOPICAL 06/24/24 13:45
BIDPRN PRN
IRRITATION/REDDNESS
Oseltamivir Phosphate 30 mg 05/27/24 13:00 05/28/24 07:47
Oseltamivir (Tamiflu) 30 Mg Capsule PO 06/01/24 12:59 30 mg
BID CHER Administration
Pantoprazole Sodium 20 mg 05/28/24 08:00 05/28/24 07:47
Pantoprazole 20 Mg Delayed Release Tablet PO 06/25/24 07:59 20 mg
DAILY CHER Administration
Polyethylene Glycol 17 grams 05/27/24 11:36
Polyethylene Glycol Powder 17 Grams Packet PO 06/24/24 11:35
DAILYPRN PRN
constipation
Quetiapine Fumarate 25 mg 05/27/24 22:00
Quetiapine 25 Mg Tablet PO 06/24/24 21:59
HS CHER
Senna/Docusate Sodium 1 tablet 05/27/24 11:36
Docusate W/Senna (Subha-Colace) Tablet PO 06/24/24 11:35
BIDPRN PRN
constipation
Sodium Chloride 0 flush 05/27/24 12:00
Sodium Chloride 0.9% (Flush) Syringe IV 06/24/24 11:59
PER PROTOCOL CHER
Trazodone HCl 50 mg 05/27/24 22:00 05/27/24 22:18
Trazodone 50 Mg Tablet PO 06/24/24 21:59 50 mg
HS CHER Administration
Venlafaxine HCl 225 mg 05/28/24 08:00 05/28/24 07:47
Venlafaxine 75 Mg Extended Release Capsule PO 06/25/24 07:59 225 mg
DAILY CHER Administration
Home Medications
-
Home Medications
amlodipine 5 mg tablet 5 mg PO DAILY #90 tabs 04/22/22
clotrimazole 1 % topical cream 1 applic topical BID diaper rash 01/23/24
estradiol 0.01% (0.1 mg/gram) vaginal cream 1 appful vaginal TUFR Hormonal Agent 01/23/24
glimepiride 1 mg tablet 1 mg PO BID Diabetes 01/23/24
quetiapine 25 mg tablet (Seroquel) 25 mg PO HS Mental Health/Anxiety 01/23/24
trazodone 50 mg tablet 50 mg PO HS Sleep 01/23/24
ticagrelor 90 mg tablet (Brilinta) 90 mg PO BID Blood Clot Prevention/Tx 01/24/24
atorvastatin 80 mg tablet 80 mg PO QPM High Cholesterol 30 days #30 tabs 02/06/24
bisacodyl 5 mg tablet,delayed release 10 mg (2 x 5 mg) PO DAILYPRN PRN constipation 30 days #3 tabs 02/06/24
cholecalciferol (vitamin D3) 50 mcg (2,000 unit) tablet 50 mcg PO DAILY Supplement 30 days #30 tabs 02/06/24
docusate sodium 100 mg capsule 100 mg PO BID Constipation 30 days #60 caps 02/06/24
ezetimibe 10 mg tablet 10 mg PO HS cholesterol 30 days #30 tabs 02/06/24
levothyroxine 50 mcg tablet 50 mcg PO DAILY @ 0600 hypothyroid 30 days #30 tabs 02/06/24
miconazole nitrate 2 % topical powder (Miconazorb AF) 1 applic topical BIDPRN PRN IRRITATION/REDDNESS 30 days #1 container 02/06/24
pantoprazole 20 mg tablet,delayed release 20 mg PO DAILY gerd 30 days #30 tabs 02/06/24
psyllium husk (aspartame) 3.4 gram oral powder packet (Metamucil Fiber Singles) 1 packet PO DAILY bowel 30 days #30 packets 02/06/24
sennosides 8.6 mg tablet (Senna Laxative) 17.2 mg (2 x 8.6 mg) PO HS 30 days #30 tabs 02/06/24
venlafaxine 75 mg capsule,extended release 24 hr 225 mg (3 x 75 mg) PO DAILY Mental Health/Anxiety #90 caps 02/06/24
[2024-05-28] MEDS: NSS 250 IV (10:42)
--- NOTE | 2024-05-28 11:02 | PTCARENOTE ---
pt with persistent confused conversation. santos, follows commands. cooperative, l sensation not consistent as well as visual sandra. otherwise unchanged.
--- NOTE | 2024-05-28 12:43 | PTCARENOTE ---
neuro unchanged. remains pleasantly confused. follows commands. was up in chair, sent to mri.
--- NOTE | 2024-05-28 12:54 | W.PN.HOSP.TC ---
Addendum entered and electronically signed by Celine Rodriguez MD 05/28/24 14:57:
I personally performed a history and physical exam of the patient and discussed management with the resident. I reviewed the resident's note and agree with the documented findings and plan of care HPI/CC.
A/P:
# Acute Ischemic Stroke
# previous strokes x3, most recent in Jan 2024 with TNK at that time
CT head no acute findings
CTA noted new occlusion of right posterior cerebral artery
s/p tenecteplase 05/27/2024, hold antiplatelet agents
Monitor in ICU
Follow MRI brain
PT/OT/PM&R evals
Of note, LDL 25
# Essential HTN
Allow permissive HTN for 24 hours
Hold home antihypertensives
Labetalol IV as needed
# HLD
LDL 25
Continue Statins
# NIDDM
# Influenza A positive, unclear if any relation to stroke (doubt)
< 48 hours since onset, Started Oseltamivir x 5 d
DVT proph--SCDs
code status--FULL CODE
Original Note:
Today's Communication/Plan
-
MRI today. PT/OT eval and treat. Physiatry eval. Continue Tamiflu.
Assessment / Plan
Assessment / Plan
1. Acute Ischemic Stroke
- History of 3 prior strokes with residual weakness on left per
- CT head 05/27/2024: Reviewed, chronic senescent changes and multiple chronic infarcts. No acute intracranial hemorrhage or appreciable new acute infarct within the limitations of extensive small vessel ischemic disease. An MRI would be more
sensitive for the evaluation of acute ischemia.
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 Chronic high-grade short segment stenosis of the M2 segment of the right middle cerebral artery, similar compared to the CT angiogram from 01/23/2024. Stable
50% stenosis of the right carotid bulb. 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
- Repeat MRI Brain at 24 Hrs:
- NIH Stroke Scale 6 in the ED; 0 s/p TNK in ICU; continue neurologic checks
- No episodes of bleeding over 24 h
- Restart Brilinta if MRI is negative
- PT/OT today
- PMnR eval today
- Swallow Study done; okay to advance diet
2. Essential HTN
- Appreciate Road Manager reccs
- Permissive HTN for first 24 hours; target systolic 140-180, diastolic less than 105
- Hold home antihypertensives
- Labetalol IV as needed
- Mildly hypotensive this morning, given fluid bolus
3. HLD/Hx Stroke
- Continue Statins
4. NIDDM
- Follow CMP
5. Influenza A
- < 48 hours since onset
- Start Oseltamivir x 5 d (D 2/5)
Anticipated Discharge: 24 - 48 hours
Subjective/Interval History
-
Date of Service: May 28, 2024
Patient seen and examined while resting comfortably in bed. Patient does not have any subjective complaints this morning. Patient specifically denies headache, new-onset weakness, numbness, tingling, trouble swallowing or bleeding.
Objective Data
-
Labs:
Laboratory Results
05/28/24
03:12
WBC 7.7
Hgb 11.6 L
Hct 35.7 L
Plt Count 282
PT 13.9
INR 1.04
APTT 31.7
Sodium 137
Potassium 3.8
Chloride 102
Carbon Dioxide 25
BUN 15
Creatinine 1.0
Glucose 96
Calcium 8.4
Vital Signs:
Vital Signs
Temp Pulse Resp BP Pulse Ox
98.3 F 85 26 134/81 94
05/28/24 11:40 05/28/24 12:30 05/28/24 12:30 05/28/24 12:00 05/28/24 07:15
I&O
05/27/24 05/28/24 05/29/24
06:59 06:59 06:59
Intake Total 260 / 260
Output Total 200 / 200
Balance 60 / 60
Review of Systems
-
History Source: Patient
Constitutional: Reports No Symptoms
Respiratory: Reports No Symptoms
Cardiac: Reports No Symptoms
Musculoskeletal: Reports No Symptoms
Neuro: Reports No Symptoms
Physical Exam
-
General: No Apparent Distress, Comfortable and Conversant
HEENT: Normocephalic and Atraumatic
Respiratory: Clear to Auscultation
Cardiac: Regular Rhythm and S1/S2
GI: Soft and Nontender
Musculoskeletal: No Clubbing, No Cyanosis and No Edema
Skin: Warm
Neuro: Awake, Alert and Other (4/5 motor strength in the LLE that is noted to be chronic)
Psych: Calm
Data Reviewed
-
Labs: Labs Reviewed by me and Discussed with Patient
--- NOTE | 2024-05-28 14:15 | CM ---
CM following re: discharge planning.
Discussed in Rounds, reviewed pt's chart, met with pt and pt's at bedside.
Pt is an 78 year old female, admitted with primary dx of CVA. Per Rounds meeting, status post TNK yesterday night, MRI today, continue supportive care.
Pt reports she lives with in 1SH, 1 step to enter, has 2 supportive children. Pt reports she ambulates with a walker, known to [facility] and was at [facility] in January 2024.
PT and OT evaluations noted - acute rehab recommended. Both pt and her are aware, [facility] requested. A referral to [facility] made.
PM&R consult pending.
PCP: Kenny Turner
Pharmacy: [facility]
D/C plan: [facility].
CM will follow with discharge plan updates as hospitalization progresses
--- NOTE | 2024-05-28 16:23 | CON.MD ---
Consultation - Medical
-
Chief Complaint: CVA
History of Present Illness: 78-year-old female with PMH (as below) presented to [facility] on 05/27/2024 with a wobbling gait, slurred speech and difficulty getting through the door. Her speech got worse during the transfer to the hospital.
Initial CT of the head with no acute changes. She was seen by neurology and given tenecteplase. She was also found to have influenza A. MRI of the brain noting acute to subacute infarct in the right occipital lobe and the right thalamus, in the
distribution of the right posterior cerebral artery.
Past Medical History: HLD, NIDDM, fecal incontinence, CVA 2020, syncope, 2021 subdural hematoma
Procedure History: Appendectomy, cholecystectomy, bilateral knee replacements, right shoulder replacement, cataracts, LINQ, Loop recorder
Family History: Mother with COPD, father with brain cancer
Social History:
Functional Level Premorbidly: Independent, has rolling walker
Functional Level Currently: Min assist transfers, min assist ambulating 10 feet x 2 with rolling walker.
Tobacco: Denies
Alcohol: Denies
Drug use: Denies
Lives with: Spouse
24-hour assistance available: Yes
Number of floors: 1
# steps to enter: 1
Driving: Yes
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
�
Allergies:�
Allergy/AdvReac Type Severity Reaction Status Date / Time
No Known Allergies Allergy Verified 02/20/24 16:52
�
Review of Systems:�
Constitutional: (x) abNormal _ fatigue
Eye: (x) Normal _
Ear/Nose/Throat: (x) Normal _
Respiratory: (x) abNormal _has influenza
Cardiovascular: normal
Gastrointestinal: (x) Normal _
Genitourinary: (x) Some incontinency with urinating.
Musculoskeletal: (x) Left sided weakness due CVA
Integumentary: (x) Normal _
Neurologic: (x) Recurrent CVA, some confusion, worsening left-sided attention per speech therapist and daughter
Psychiatric: (x) Normal _
Endocrine: (x) Normal _
Hematologic/Lymphatic: (x) Normal _
Allergic/Immunologic: (x) Normal _
�
Medications:�
Active Current Visit Medication List
Category Date Time Status
Acetaminophen [Tylenol] Med 05/27/24 13:38 Active
650 mg PO Q4HPRN PRN
Amlodipine [Norvasc] Med 05/28/24 08:00 Hold
5 mg PO DAILY
Atorvastatin [Lipitor] Med 05/27/24 18:00 Active
80 mg PO QPM
Bisacodyl [Dulcolax] Med 05/27/24 11:36 Active
10 mg RECTAL [id number] PRN
Cholecalciferol (Vitamin D3) [VITAMIN D3 ( Med 05/28/24 08:00 Active
cholecalciferol)]
50 mcg PO DAILY
Clotrimazole [Lotrimin 1% Cream] Med 05/27/24 20:00 Pending
1 applic TOPICAL BID
Docusate W/Senna [Senokot-S] Med 05/27/24 11:36 Active
1 tablet PO BIDPRN PRN
Ezetimibe [Zetia] Med 05/27/24 22:00 Active
10 mg PO HS
Flush (0.9% Sodium Chloride) [Flush (Nss)] Med 05/27/24 12:00 Active
See Dose Instructions IV PER PROTOCOL
Glimepiride [Amaryl] Med 05/27/24 18:00 Active
1 mg PO BID@0800,1700
Labetalol HCl [Trandate] Med 05/28/24 10:01 Active
5 mg IV Q6HPRN PRN
Levothyroxine [Synthroid] Med 05/28/24 06:00 Active
50 mcg PO DAILY @ 0600
Miconazole Nitrate [Desenex/Mitrazol/Zeasorb] Med 05/27/24 13:46 Pending
1 applic TOPICAL BIDPRN PRN
Oseltamivir Phosphate [Tamiflu] Med 05/27/24 13:00 Active
30 mg PO BID
Pantoprazole [Protonix] Med 05/28/24 08:00 Active
20 mg PO DAILY
Polyethylene Glycol Powder [Miralax] Med 05/27/24 11:36 Active
17 grams PO DAILYPRN PRN
Quetiapine Fumarate [Seroquel] Med 05/27/24 22:00 Hold
25 mg PO HS
Trazodone [Desyrel] Med 05/27/24 22:00 Active
50 mg PO HS
Venlafaxine Extended Release [Effexor Xr] Med 05/28/24 08:00 Active
225 mg PO DAILY
�
Vitals:�
Temp Pulse Resp BP Pulse Ox
98.3 F 89 17 105/92 92
05/28/24 15:17 05/28/24 16:03 05/28/24 16:03 05/28/24 16:03 05/28/24 14:00
Height 5 ft 2 in
Actual Weight 62.4 kg
Body Mass Index (BMI) 25.2
Physical Exam:�
General Appearance/Observation: Well-developed, well-nourished female in no apparent distress.�
Pain/Comfort Assessment: Denies�
Mood/Affect: Appropriate�
�
Integumentary/Operative Site:�No lesions noted during course of exam.
�
Eyes: Conjunctiva/Lids: normal���� Pupils: pupils equal round and reactive to light and Accommodation�
Ears/Nose/Throat: oral mucosa moist,� throat clear.������������ Lips/Teeth/Gums: normal�
Neck: No muscle spasm or tenderness�
Cardiovascular: Heart: regular, no murmur�
Pulses: dorsalis pedis 2+ bilaterally�
Respiratory: Respiratory Effort/Chest Expansion: normal������� Auscultation: Clear to auscultation bilaterally�
Gastrointestinal: abdomen not tender, no distension, normal abdominal bowel sounds
Genitourinary: No Pepe�
Extremities:�Edema: None�Cyanosis: None�Trophic�changes: None
�
Neurology Exam: Difficulty focusing,easily distracted
Orientation: Alert, Oriented to self, not time time, Place. Knows the president.
Memory: Impaired
Repetition: Intact
Comprehension: Intact
Two step command: Intact
Naming: Intact
Cranial Nerves:
�� CNII:�Pupillary light reflex: Intact����Visual Field: Left manus hemianopsia
�� CN III, IV, : Extraocular muscles: Intact�
�� CN V:�Facial Sensation�at�Forehead: Intact,�Maxilla: Intact,�Mandible: Intact
�� CN VII:�Facial movement: Slight weakness on the left
�� CN VIII:�Hearing: Normal
�� CN IX/X:�Speech & swallow: Slight dysarthria,�Position of Uvula: Midline
�� CN XI:�Shoulder shrug: Symmetric
�� CN XII:�Tongue protrusion: Midline
Sensory:
�� Light touch: Intact in bilateral upper and right lower extremities. Impaired left lower extremity. Extinction to double simultaneous stimulation in the left upper extremity
�
Reflexes:
�� Biceps: 2+ bilaterally
�� Brachioradialis: 2+ bilaterally
�� Triceps: 2+ bilaterally
�� Patellar: 2+ bilaterally
�� Achilles: 2+ bilaterally
�� Babinski: Down going bilaterally
�� Clonus: None
�� Bj: Negative bilaterally�
Cerebellar: Dysmetria/Ataxia: None�on the right. Testing on the left impaired which appears to be due to vision more than dysmetria.
Musculoskeletal: Motor: (Manual muscle scale 0-5)�
Muscle SA EF WE EE FF FA HF KE DF EHL PF
Right� 5 5 5 5 5 5 5 5 5 5 5
Left 4 4 4 4 4 4 3+ 4 4 4 4
�
Tone: Normal in all extremities�
Range of Motion: Passively within normal limits in all extremities�
�
Lab Results
Laboratory Data
05/28/24 03:12
05/28/24 03:12
PT 13.9 Sec (11.4-14.6) 05/28/24 03:12
INR 1.04 05/28/24 03:12
APTT 31.7 Sec (23.4-35.0) 05/28/24 03:12
Total Bilirubin 0.4 mg/dl (0.2-1.3) 05/27/24 09:38
AST 32 U/L (14-36) 05/27/24 09:38
ALT 21 U/L (0-35) 05/27/24 09:38
Alkaline Phosphatase 99 U/L (38-126) 05/27/24 09:38
Total Protein 7.4 g/dl (6.3-8.2) 05/27/24 09:38
Albumin 4.2 g/dl (3.5-5.0) 05/27/24 09:38
�
Diagnostic Results:�as per HPI�
�
Assessment
78-year-old F PMH (HLD, NIDDM, fecal incontinence, CVA 2020, syncope, 2021 subdural hematoma) with 05/27/2024 with right occipital lobe and right thalamic thalamic area s/p tenecteplase, as well as influenza A causing ADL, ambulatory, and speech
dysfunction.
Plan�
PM&R�PT/OT to increase independence with ADLs, improve balance, coordination, endurance, strength, mobility, community reintegration, decreased burden of care on others and family education.�
�
Acute CVA on chronic: TNK 05/27/2024-right MCA infarct. Continue PT/OT/Speech. Secondary prophylaxis per neurology. Was on Brilinta. On statin, blood pressure control.
Left nondominant hemiparesis: PT/OT, avoid pulling on shoulder joint.
Left Neglect: makes patient at increased risk for falls.� Will need therapy to work on scanning of environment for safe navigation.Encouraged to sit to her left side of the bed.
Moderate dementia with other behavioral disturbance: Follow up with PCP to consider Aricept. Had been doing better after last stroke and is managed well at home by her .
Recurrent major depressive disorder: venlafaxine, quetiapine and trazodone.
HTN/mild to Mod : Holding amlodipine 5 mg qd with permissive hypertension. OP Cardiology follow up. She had loop recorder placed in the past.
HLD: atorvastatin 80 mg, Zetia 10mg
DM 2: Poorly controlled. HGB A1C 9. Glimepiride 1 mg twice daily, Accu-Cheks with SSI, diet control
GERD: Nexium 20 mg changed to Protonix 40 mg daily
Hypothyroid: Levothyroxine
Dysarthria: speech
Psych: trazodone and Seroquel.
Bladder/Urinary incontinence : No retention concerns
Pulmonary: Incentive spirometry
Skin: monitor for pressure sores/rashes/lesions.
Pain: acetaminophen as needed.
DVT Prophylaxis: Mechanical and Lovenox 40 mg daily when cleared by neurology
Safety: Continue to reinforce assistance with all transfers.
Code Status:� Full code
Dispo�(date/plan/equipment needs): Home with family care.� Social history reviewed.�
Functional and Medical Goals:�Modified Independent with ADL�s, ambulation, transfers�
Discharge Destination:�Acute inpatient rehabilitation�
A total of 60 minutes were spent with the patient preparing for the evaluation, obtaining history, performing examination and evaluation, counseling, data review, case management, care coordination, food and beverage order clerk, and EMR documentation.
Summary of recommendations:
-�Discharge Destination:�Acute inpatient rehabilitation
�Acute CVA on chronic: TNK 05/27/2024-right MCA infarct. Continue PT/OT/Speech. Secondary prophylaxis per neurology. Was on Brilinta. On statin, blood pressure control.
Left nondominant hemiparesis: PT/OT, avoid pulling on shoulder joint.
Left Neglect: makes patient at increased risk for falls.� Will need therapy to work on scanning of environment for safe navigation.Encouraged to sit to her left side of the bed.
Cognition: Moderate dementia with other behavioral disturbance. Had been doing better after last stroke and is managed well at home by her .
DVT Prophylaxis: Mechanical and Lovenox 40 mg daily when cleared by neurology
Thank you for allowing me to care for your patient. Please contact me with any questions or concerns.
[2024-05-28] MEDS: LIPITOR 80 MG PO (17:13)
--- NOTE | 2024-05-28 18:35 | PTCARENOTE ---
pt downgraded to tele. Report called to Norma who will assume care of pt upon arrival. called and made aware of new room. Belongings from room sent with patient
[2024-05-28] MEDS: BRILINTA 90 MG PO (20:05)
[2024-05-28] MEDS: DESYREL 50 MG PO (22:56)
[2024-05-28] MEDS: ZETIA 10 MG PO (22:56)
[2024-05-29 03:30] VITALS: BP 138/83
[2024-05-29] MEDS: SYNTHROID 50 MCG PO (05:20)
[2024-05-29 07:27] VITALS: BP 153/91
[2024-05-29 08:58] LABS: Hematocrit 35.5 % (37.0-47.0); Hemoglobin 11.9 g/dL (12.0-16.0); Mean Corp Hgb Conc. 33.5 g/dL (33.0-37.0); Mean Corpuscular Hgb 26.4 pg (27.0-31.0); Mean Corpuscular Volume 78.9 fL (81.0-99.0); Mean Platelet Volume 9.8 fL (7.4-10.4); Platelet Count 272 10^3/uL (130-400); Red Cell Dist. Width 13.9 % (11.5-14.5); White Blood Cell Count 6.5 10^3/uL (4.8-10.8)
[2024-05-29] MEDS: AMARYL 1 MG PO ×2 (09:09→18:19)
[2024-05-29] MEDS: EFFEXOR XR 225 MG PO (09:09)
[2024-05-29] MEDS: PROTONIX 20 MG PO (09:09)
[2024-05-29] MEDS: TAMIFLU 30 MG PO ×2 (09:09→20:01)
[2024-05-29] MEDS: VITAMIN D3 (cholecalciferol) 50 MCG PO (09:10)
[2024-05-29] MEDS: BRILINTA 90 MG PO ×2 (09:10→20:00)
[2024-05-29] MEDS: NORVASC 5 MG PO (09:23)
[2024-05-29 09:28] LABS: Blood Urea Nitrogen 16 mg/dl (7-17); Calcium 8.6 mg/dl (8.4-10.2); Carbon Dioxide 22 mmol/L (22-30); Chloride 103 mmol/L (98-107); Estimated Creatinine Clearance 35 ml/min; Glucose 96 mg/dl (70-99); Potassium 4.5 mmol/L (3.5-5.1); Sodium 137 mmol/L (135-145); eGFR 56.95
--- NOTE | 2024-05-29 11:48 | W.PN.HOSP.TC ---
Addendum entered and electronically signed by Celine Rodriguez MD 05/29/24 13:07:
I personally performed a history and physical exam of the patient and discussed management with the resident. I reviewed the resident's note and agree with the documented findings and plan of care HPI/CC.
A/P:
# Acute Ischemic Stroke in the right temporal occipital region
# previous strokes x3, most recent in Jan 2024 with TNK at that time
CT head no acute findings
CTA noted new occlusion of right posterior cerebral artery
MRI brain confirmed right occipital lobe and the right thalamus, in the distribution of the right posterior cerebral artery.
s/p tenecteplase 05/27/2024
restarted Brilinta per neuro
PT/OT/PM&R recc Julián, dispo to Julián
Of note, LDL 25
# Essential HTN
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
# HLD
LDL 25
Continue Statins
# NIDDM
# Influenza A positive, ?trigger for stroke
< 48 hours since onset,
Started Oseltamivir x 5 d
DVT proph--SCDs
code status--FULL CODE
Discussed with neurologist
Original Note:
Today's Communication/Plan
-
.
Assessment / Plan
Assessment / Plan
1. Acute Ischemic Stroke
- History of 3 prior strokes with residual weakness on left per
- CT head 05/27/2024: Reviewed, chronic senescent changes and multiple chronic infarcts. No acute intracranial hemorrhage or appreciable new acute infarct within the limitations of extensive small vessel ischemic disease. An MRI would be more
sensitive for the evaluation of acute ischemia.
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 Chronic high-grade short segment stenosis of the M2 segment of the right middle cerebral artery, similar compared to the CT angiogram from 01/23/2024. Stable
50% stenosis of the right carotid bulb. CT perfusion: right [employer] territory core infarct 11 cc, penumbra 42 cc
- Repeat MRI Brain at 24 Hrs: Regions of acute to subacute infarction involving the right occipital lobe and the right thalamus, in the distribution of the right posterior cerebral artery.
- NIH Stroke Scale 6 in the ED; 0 s/p TNK in ICU; continue neurologic checks
- No episodes of bleeding over 24 h; PT/OT started yesterday, Brilinta restarted yesterday
- PMnR eval: discharge to Acute Inpatient Rehab
- Swallow Study done; okay to advance diet
05/29: Patient appears confused this morning, STAT CT Head to r/o bleed
2. Essential HTN
- Appreciate [employer] reccs
- Permissive HTN for first 24 hours; target systolic 140-180, diastolic less than 105
- Hold home antihypertensives
- Labetalol IV as needed
- Mildly hypotensive this morning, given fluid bolus.
- Restart home meds after CT results
3. HLD/Hx Stroke
- Continue Statins
4. NIDDM
- Follow CMP
5. Influenza A
- < 48 hours since onset in ED
- Start Oseltamivir x 5 d (D 07/25)
Anticipated Discharge: 24 - 48 hours
Subjective/Interval History
-
Date of Service: May 29, 2024
Patient seen and examined while in her hospital bed. not at bedside this morning. Patient somnolent earlier this morning, and then upon re-examination once the patient woke up 1 hour later, patient seemed confused. Was able to follow some
commands but orientation was questionable.
Objective Data
-
Labs:
Laboratory Results
05/29/24
07:56
WBC 6.5
Hgb 11.9 L
Hct 35.5 L
Plt Count 272
Sodium 137
Potassium 4.5
Chloride 103
Carbon Dioxide 22
BUN 16
Creatinine 1.0
Glucose 96
Calcium 8.6
Vital Signs:
Vital Signs
Temp Pulse Resp BP Pulse Ox
97.9 F 85 18 153/91 93
05/29/24 07:27 05/29/24 09:23 05/29/24 07:27 05/29/24 09:23 05/29/24 07:27
I&O
05/28/24 05/29/24 05/30/24
06:59 06:59 06:59
Intake Total 260 / 260 730 / 730
Output Total 200 / 200
Balance 60 / 60 730 / 730
Review of Systems
-
Unable to obtain full review of systems at this time due to: Dementia
Physical Exam
-
General: Comfortable, Conversant and Other (confused)
HEENT: Normocephalic and Atraumatic
Respiratory: Clear to Auscultation
Cardiac: Regular Rhythm and S1/S2
GI: Soft
Musculoskeletal: No Clubbing and No Cyanosis
Skin: Warm
Neuro: Awake
Psych: Confused
Data Reviewed
-
Labs: Labs Reviewed by me
--- NOTE | 2024-05-29 13:36 | W.PN.NEURO.1 ---
Today's Communication / Plan
-
.
Neuro Assessment/Plan
Assessment
head CT no bleed, +chronic infarcts right frontal, right parietal, medial left occipital, cerebellum
CTA head/neck LVO Right MEAT STUFFER p1-p2
perfusion: right MEAT STUFFER territory core infarct 11 cc, penumbra 42 cc
Patient wake up stroke 8:30 am, last seen normal 6 am
she is almost right at 4.5 hours from last known normal
as thrombectomy is not immediately available, decision to treat with TNK believing the benefits outweigh risks
discussed with family transfer to thrombectomy capable center after TNK vs monitoring here
Subjective/Objective
Subjective Data
Date of Service: May 29, 2024
Neurology Follow up Note
HPI: This is an 78-year-old right-handed woman who presented to [facility] on 05/27/2024 with dysarthria. Ms. Buchanan reports no complaints. According to EMR the patient woke up at 6 AM on the day of presentation with dysarthria.
Medication adherence has been confirmed with patient's family.
VS: 137/55-96/52, 82, afebrile.
EKG: NSR, QTc Int : 500 ms
PDMP: No recently prescribed medications.
Labs: HbA1C 9.9(01/2024)
Platelet function(08/12/20) 585 (no evidence of aspirin-induced platelet dysfunction).
Platelet React(08/12/20) - P2Y12 React Units- 225(Values less than 180 PRU suggests evidence of a P2Y12 inhibitor effect.)
Based on EMR patient was started on Brilinta 90 mg twice daily on 04/22/2022.
CTA head/neck-new occlusion of the right posterior cerebral artery at the P1-P2 junction, chronic high-grade R M2 stenosis
Brain MRI without anastasiya (05/28/2024)�acute right MEAT STUFFER territory infarct.
MAR: TNK given on 05/27/24 at 10:35 AM.
PMH: traumatic SDH(04/02/22), R MCA/left cerebellar strokes(01/23/2024, s/p TNK), R MCA stroke(07/2020), HTN, DLP, DM, hypothyroidism, MDD, ambulatory dysfunction,
PSH: LINQ implantation (03/2017), explantation (02/09/2021), R shoulder arthroplasty, bilateral cataract surgery, bilateral TKA, cholecystectomy,
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
FH: Brother�brain tumor
All:NKDA
ROS:Constitutional: Negative for headache, change in strength, sensation of abnormal movements, confusion.
General: Well developed. In no acute distress.
Cardio: Regular rate and rhythm without murmur. Extremities are without cyanosis or edema.
Neuro:
Mental Status: Alert, oriented to self, president, month, not to year. Poor attention and impaired comprehension. Follows simple requests. Able to do simple calculation. No hemineglect.
Cranial Nerves: Pupils are equally round, surgical. EOMs full. Left homonymous hemianopsia, mild right ptosis. No nystagmus. V1-V3 intact to light touch and pinprick bilaterally, symmetric. Mild left facial weakness normal hearing AU. The
palate elevated well. SCMs and traps 5/5. Tongue midline. Mild dysarthria.
Motor: Limited exam due to cooperation, mild left hemiparesis
Reflexes: Limited exam due to cooperation
Sensory: Left hemisensory deficits
Coordination: No tremors, clonic movements.
Gait: deferred
Assessment and Plan:
I. Acute right MEAT STUFFER territory stroke, status post TNK.
II. Influenza A. �Influenza A can increase the risk of stroke. The risk of stroke is higher in the days after a flu-like illness, and can be as much as 40% higher within 15 days.�The risk can remain elevated for up to 60 days
III. Subacute/chronic cryptogenic right MCA, L cerebellar strokes (01/23/2024, status post TNK)-embolic stroke of undetermined source((ESUS). Deferential diagnosis includes embolism from occult sources in the aorta(complex atheroma in the
ascending aorta or proximal arch), substenotic atherosclerotic disease, nonatherosclerotic vasculopathies(vasculitis), less likely pulmonary shunts.
IV. Chronic R MCA stroke(07/2020)
IV. Vascular encephalopathy.
-Continue telemetry
-Fall and aspiration precautions.
-Please check LDL
-Restart Brilinta 90 mg twice daily
-Continue Lipitor 80 mg nightly
-Please optimize glycemic control
-Please obtain ESR, CRP serum cryoglobulins, MIGUEL A, ANCA, [id number], and complement levels after implants recovery.
-Occult malignancy screening
-OP Neurology follow up
-Please recall neurology services any questions or concerns.
I personally reviewed all radiology and labs along with past medical records pertinent to current medical problems. Total time spent in patient care is 60 minutes.
Thank you for allowing us to participate in the care of this patient. Please do not hesitate to contact us with any questions or concerns.
Objective Data
Vital Signs
Temp Pulse Resp BP Pulse Ox
36.6 C 85 18 153/91 93
05/29/24 07:27 05/29/24 09:23 05/29/24 07:27 05/29/24 09:23 05/29/24 07:27
Lab Results
05/29/24 07:56
05/29/24 07:56
PT 13.9 Sec (11.4-14.6) 05/28/24 03:12
INR 1.04 05/28/24 03:12
APTT 31.7 Sec (23.4-35.0) 05/28/24 03:12
Sodium 137 mmol/L (135-145) 05/29/24 07:56
Potassium 4.5 mmol/L (3.5-5.1) 05/29/24 07:56
BUN 16 mg/dl (7-17) 05/29/24 07:56
Glucose 96 mg/dl (70-99) 05/29/24 07:56
Calcium 8.6 mg/dl (8.4-10.2) 05/29/24 07:56
LDL Cholesterol, Calc 25 mg/dl 05/28/24 03:12
Patient Allergies
No Known Allergies Allergy (Verified 02/20/24 16:52)
Vital Signs and Labs
-
Vital Signs and Labs:
Vital Signs
Temp Pulse Resp BP Pulse Ox
36.8 C 85 18 120/78 96
05/30/24 11:32 05/30/24 11:32 05/30/24 11:32 05/30/24 11:32 05/30/24 11:32
Lab Results
05/30/24 07:22
PT 13.9 Sec (11.4-14.6) 05/28/24 03:12
INR 1.04 05/28/24 03:12
APTT 31.7 Sec (23.4-35.0) 05/28/24 03:12
Sodium Cancelled 05/30/24 07:22
Potassium Cancelled 05/30/24 07:22
BUN Cancelled 05/30/24 07:22
Glucose Cancelled 05/30/24 07:22
Calcium Cancelled 05/30/24 07:22
LDL Cholesterol, Calc 25 mg/dl 05/28/24 03:12
Medications
-
Medications:
Generic Name Dose Route Start Last Admin
Trade Name Freq PRN Reason Stop Dose Admin
Acetaminophen 650 mg 05/27/24 13:38
Acetaminophen 325 Mg Tablet PO 06/24/24 13:37
Q4HPRN PRN
BENJAMIN, mild pain, or temp >100.4F
Amlodipine Besylate 5 mg 05/28/24 08:00 05/30/24 10:19
Amlodipine 5 Mg Tablet PO 06/25/24 07:59 5 mg
DAILY CHER Administration
Atorvastatin Calcium 80 mg 05/27/24 18:00 05/29/24 18:19
Atorvastatin (Lipitor) 80 Mg Tablet PO 06/24/24 17:59 80 mg
QPM CHER Administration
Bisacodyl 10 mg 05/27/24 11:36
Bisacodyl 10 Mg Rectal Suppository RECTAL 06/24/24 11:35
[id number] PRN
constipation
Cholecalciferol 50 mcg 05/28/24 08:00 05/30/24 10:18
Cholecalciferol (Vitamin D3) 50 Mcg Tablet (2,000 Units) PO 06/25/24 07:59 50 mcg
DAILY CHER Administration
Clotrimazole 1 applic 05/27/24 20:00
Clotrimazole 1% (Cream) 30 Gram Tube TOPICAL 06/24/24 19:59
BID CHER
Ezetimibe 10 mg 05/27/24 22:00 05/29/24 21:44
Ezetimibe (Zetia) 10 Mg Tablet PO 06/24/24 21:59 10 mg
HS CHER Administration
Glimepiride 1 mg 05/27/24 18:00 05/30/24 10:19
Glimepiride 1 Mg Tablet PO 06/24/24 17:59 1 mg
BID@0800,1700 CHER Administration
Labetalol HCl 5 mg 05/28/24 10:01
Labetalol Hcl 5 Mg/1 Ml (20 Mg/4 Ml) Injection IV 06/25/24 07:46
Q6HPRN PRN
SBP > 180 or DBP > 105
Levothyroxine Sodium 50 mcg 05/28/24 06:00 05/30/24 06:01
Levothyroxine 50 Mcg Tablet PO 06/25/24 05:59 50 mcg
DAILY @ 0600 CHER Administration
Miconazole Nitrate 1 applic 05/27/24 13:46
Miconazole Powder Bottle TOPICAL 06/24/24 13:45
BIDPRN PRN
IRRITATION/REDDNESS
Oseltamivir Phosphate 30 mg 05/27/24 13:00 05/30/24 10:18
Oseltamivir (Tamiflu) 30 Mg Capsule PO 06/01/24 12:59 30 mg
BID CHER Administration
Pantoprazole Sodium 20 mg 05/28/24 08:00 05/30/24 10:18
Pantoprazole 20 Mg Delayed Release Tablet PO 06/25/24 07:59 20 mg
DAILY CHER Administration
Polyethylene Glycol 17 grams 05/27/24 11:36
Polyethylene Glycol Powder 17 Grams Packet PO 06/24/24 11:35
DAILYPRN PRN
constipation
Quetiapine Fumarate 25 mg 05/27/24 22:00
Quetiapine 25 Mg Tablet PO 06/24/24 21:59
HS CHER
Senna/Docusate Sodium 1 tablet 05/27/24 11:36
Docusate W/Senna (Subha-Colace) Tablet PO 06/24/24 11:35
BIDPRN PRN
constipation
Sodium Chloride 0 flush 05/27/24 12:00
Sodium Chloride 0.9% (Flush) Syringe IV 06/24/24 11:59
PER PROTOCOL CHER
Ticagrelor 90 mg 05/28/24 20:00 05/30/24 10:18
Ticagrelor (Brilinta) 90 Mg Tablet PO 06/25/24 19:59 90 mg
BID CHER Administration
Trazodone HCl 50 mg 05/27/24 22:00 05/29/24 21:43
Trazodone 50 Mg Tablet PO 06/24/24 21:59 50 mg
HS CHER Administration
Venlafaxine HCl 225 mg 05/28/24 08:00 05/30/24 10:17
Venlafaxine 75 Mg Extended Release Capsule PO 06/25/24 07:59 225 mg
DAILY CHER Administration
Home Medications
-
Home Medications
amlodipine 5 mg tablet 5 mg PO DAILY #90 tabs 04/22/22
clotrimazole 1 % topical cream 1 applic topical BID diaper rash 01/23/24
estradiol 0.01% (0.1 mg/gram) vaginal cream 1 appful vaginal TUFR Hormonal Agent 01/23/24
glimepiride 1 mg tablet 1 mg PO BID Diabetes 01/23/24
quetiapine 25 mg tablet (Seroquel) 25 mg PO HS Mental Health/Anxiety 01/23/24
trazodone 50 mg tablet 50 mg PO HS Sleep 01/23/24
ticagrelor 90 mg tablet (Brilinta) 90 mg PO BID Blood Clot Prevention/Tx 01/24/24
atorvastatin 80 mg tablet 80 mg PO QPM High Cholesterol 30 days #30 tabs 02/06/24
bisacodyl 5 mg tablet,delayed release 10 mg (2 x 5 mg) PO DAILYPRN PRN constipation 30 days #3 tabs 02/06/24
cholecalciferol (vitamin D3) 50 mcg (2,000 unit) tablet 50 mcg PO DAILY Supplement 30 days #30 tabs 02/06/24
docusate sodium 100 mg capsule 100 mg PO BID Constipation 30 days #60 caps 02/06/24
ezetimibe 10 mg tablet 10 mg PO HS cholesterol 30 days #30 tabs 02/06/24
levothyroxine 50 mcg tablet 50 mcg PO DAILY @ 0600 hypothyroid 30 days #30 tabs 02/06/24
miconazole nitrate 2 % topical powder (Miconazorb AF) 1 applic topical BIDPRN PRN IRRITATION/REDDNESS 30 days #1 container 02/06/24
pantoprazole 20 mg tablet,delayed release 20 mg PO DAILY gerd 30 days #30 tabs 02/06/24
psyllium husk (aspartame) 3.4 gram oral powder packet (Metamucil Fiber Singles) 1 packet PO DAILY bowel 30 days #30 packets 02/06/24
sennosides 8.6 mg tablet (Senna Laxative) 17.2 mg (2 x 8.6 mg) PO HS 30 days #30 tabs 09/16/24
venlafaxine 75 mg capsule,extended release 24 hr 225 mg (3 x 75 mg) PO DAILY Mental Health/Anxiety #90 caps 02/06/24
[2024-05-29 14:39] VITALS: BP 135/76; PULSE 90; O2SAT 94
--- NOTE | 2024-05-29 14:49 | CM ---
CM reviewed chart, reviewed with Resident, patient for stat CT of Head. PMR evaluation from 05/28/24 recommending acute rehab. MIKI reviewed with [facility] at [facility], able to accept patient once auth approved. CM will submit for auth once patient is stable
for discharge to acute rehab.
Plan; [facility] once stable, will require [employer] insurance auth.
[2024-05-29 15:00] VITALS: BP 136/70
[2024-05-29] MEDS: LIPITOR 80 MG PO (18:19)
[2024-05-29 19:33] VITALS: BP 131/69
[2024-05-29] MEDS: DESYREL 50 MG PO (21:43)
[2024-05-29] MEDS: ZETIA 10 MG PO (21:44)
[2024-05-29 23:13] VITALS: BP 137/56
[2024-05-30] VITALS (9 sets, daily range): BP systolic 107–159; BP diastolic 61–98; PULSE 85–90; O2SAT 94–96
[2024-05-30] MEDS: SYNTHROID 50 MCG PO (06:01)
[2024-05-30] MEDS: EFFEXOR XR 225 MG PO (10:17)
[2024-05-30] MEDS: TAMIFLU 30 MG PO ×2 (10:18→19:21)
[2024-05-30] MEDS: PROTONIX 20 MG PO (10:18)
[2024-05-30] MEDS: VITAMIN D3 (cholecalciferol) 50 MCG PO (10:18)
[2024-05-30] MEDS: BRILINTA 90 MG PO ×2 (10:18→19:21)
[2024-05-30] MEDS: AMARYL 1 MG PO ×2 (10:19→17:17)
[2024-05-30] MEDS: NORVASC 5 MG PO (10:19)
--- NOTE | 2024-05-30 13:08 | W.PN.HOSP.TC ---
Addendum entered and electronically signed by Celine Rodriguez MD 05/30/24 15:02:
I personally performed a history and physical exam of the patient and discussed management with the resident. I reviewed the resident's note and agree with the documented findings and plan of care HPI/CC.
A/P:
# Acute Ischemic Stroke in the right temporal occipital region
# previous strokes x3, most recent in Jan 2024 with TNK at that time
Admission CT head no acute findings
CTA noted new occlusion of right posterior cerebral artery
MRI brain confirmed right occipital lobe and the right thalamus, in the distribution of the right posterior cerebral artery.
s/p tenecteplase 05/27/2024
Brilinta per neuro
PT/OT/PM&R recc Julián, dispo to Julián
Of note, LDL 25
# Essential HTN
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
# HLD
LDL 25
Continue Statins
# NIDDM
# Influenza A positive, ?trigger for stroke
< 48 hours since onset,
Started Oseltamivir x 5 d
DVT proph,lovenox SQ
code status, FULL CODE
Original Note:
Today's Communication/Plan
-
.
Assessment / Plan
Assessment / Plan
1. Acute Ischemic Stroke
- History of 3 prior strokes with residual weakness on left per
- CT head 05/27/2024: Reviewed, chronic senescent changes and multiple chronic infarcts. No acute intracranial hemorrhage or appreciable new acute infarct within the limitations of extensive small vessel ischemic disease. An MRI would be more
sensitive for the evaluation of acute ischemia.
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 Chronic high-grade short segment stenosis of the M2 segment of the right middle cerebral artery, similar compared to the CT angiogram from 01/23/2024. Stable
50% stenosis of the right carotid bulb. CT perfusion: right JITTERBUG OPERATOR territory core infarct 11 cc, penumbra 42 cc
- Repeat MRI Brain at 24 Hrs: Regions of acute to subacute infarction involving the right occipital lobe and the right thalamus, in the distribution of the right posterior cerebral artery.
- NIH Stroke Scale 6 in the ED; 0 s/p TNK in ICU; continue neurologic checks
- No episodes of bleeding over 24 h; PT/OT started yesterday, Brilinta restarted yesterday
- PMnR eval: discharge to Acute Inpatient Rehab
- Swallow Study done; okay to advance diet
05/29: Patient appears confused this morning, STAT CT Head to r/o bleed: no evidence of bleed
05/30: Patient returned to baseline; CT negative. Possibly temporary secondary to influenza.
05/31: Discharge planning to acute care rehab; CM made aware
2. Essential HTN
- BP stable.
3. HLD/Hx Stroke
- Continue Statins
4. NIDDM
- Follow CMP
5. Influenza A
- < 48 hours since onset in ED
- Start Oseltamivir x 5 d (D 4/5)
- Patient notes improvement in sx
Anticipated Discharge: Within 24 hours
Subjective/Interval History
-
Date of Service: May 30, 2024
Patient seen and examined while resting comfortably in bed. Patient states that she is feeling better today, states that she is coughing less than yesterday. Patient appears much less confused and we were able to have a conversation. Patient asking
questions about rehab, and when she would be able to go home after.
Objective Data
-
Labs:
Laboratory Results
05/30/24 05/30/24
07:22 07:26
WBC Cancelled Pending
Hgb Cancelled Pending
Hct Cancelled Pending
Plt Count Cancelled Pending
Sodium Cancelled
Potassium Cancelled
Chloride Cancelled
Carbon Dioxide Cancelled
BUN Cancelled
Creatinine Cancelled
Glucose Cancelled
Calcium Cancelled
Vital Signs:
Vital Signs
Temp Pulse Resp BP Pulse Ox
98.2 F 85 18 120/78 96
05/30/24 11:32 05/30/24 11:32 05/30/24 11:32 05/30/24 11:32 05/30/24 11:32
I&O
05/29/24 05/30/24 05/31/24
06:59 06:59 06:59
Intake Total 730 / 730 1200 / 1200
Balance 730 / 730 1200 / 1200
Review of Systems
-
History Source: Patient
Respiratory: Reports Cough (improving)
Cardiac: Reports No Symptoms
Abdomen/GI: Reports No Symptoms
Neuro: Denies Weakness
Hematologic / Lymphatic: Denies Bleeding
Physical Exam
-
General: No Apparent Distress and Conversant
HEENT: Normocephalic and Atraumatic
Respiratory: Clear to Auscultation
Cardiac: Regular Rhythm and S1/S2
GI: Soft and Nontender
Musculoskeletal: No Clubbing, No Cyanosis and No Edema
Skin: Warm and Dry
Neuro: Awake, Alert, Oriented (to person and place) and No Motor Deficits (left lower extremity 4/5, chronic. No new strength deficits. )
Psych: Calm
[2024-05-30] MEDS: LIPITOR 80 MG PO (17:17)
[2024-05-30] MEDS: DESYREL 50 MG PO (21:35)
[2024-05-30] MEDS: ZETIA 10 MG PO (21:35)
[2024-05-31 03:35] VITALS: BP 126/78
[2024-05-31] MEDS: SYNTHROID 50 MCG PO (05:45)
[2024-05-31 07:00] VITALS: BP 163/97
[2024-05-31] MEDS: EFFEXOR XR 225 MG PO (08:55)
[2024-05-31] MEDS: PROTONIX 20 MG PO (08:55)
[2024-05-31] MEDS: BRILINTA 90 MG PO (08:56)
[2024-05-31] MEDS: NORVASC 5 MG PO (08:56)
[2024-05-31] MEDS: TAMIFLU 30 MG PO (08:56)
[2024-05-31] MEDS: AMARYL 1 MG PO (08:56)
[2024-05-31] MEDS: VITAMIN D3 (cholecalciferol) 50 MCG PO (08:56)
[2024-05-31 09:11] LABS: Hematocrit 37.1 % (37.0-47.0); Hemoglobin 12.4 g/dL (12.0-16.0); Mean Corp Hgb Conc. 33.4 g/dL (33.0-37.0); Mean Corpuscular Hgb 26.1 pg (27.0-31.0); Mean Corpuscular Volume 77.9 fL (81.0-99.0); Mean Platelet Volume 9.7 fL (7.4-10.4); Platelet Count 320 10^3/uL (130-400); Red Blood Cell Count 4.76 10^6/uL (4.20-5.40); Red Cell Dist. Width 13.5 % (11.5-14.5)
[2024-05-31 09:23] LABS: Blood Urea Nitrogen 20 mg/dl (7-17); Calcium 8.9 mg/dl (8.4-10.2); Carbon Dioxide 22 mmol/L (22-30); Chloride 103 mmol/L (98-107); Estimated Creatinine Clearance 39 ml/min; Glucose 64 mg/dl (70-99); Potassium 3.9 mmol/L (3.5-5.1); Sodium 140 mmol/L (135-145); eGFR > 60.00
--- NOTE | 2024-05-31 09:38 | CM ---
Addendum entered by Cheyenne Rucker 05/31/24 14:45:
CM received call from [facility], auth approved 05/31-06/05, next review 06/06, reference number [id number]. Update to Resident, update to B[facility] at [facility], confirmed ability to accept today. Call to patients , [place], aware of discharge to [facility]
today. IMM verbally reviewed, agreeable to discharge, placed in chart. CM will continue to follow for all discharge planning needs.
Plan; [facility]
Report: [phone]
Fax: [phone]
Addendum entered by Cheyenne Rucker 05/31/24 12:07:
Patient seen bedside, updated on pending auth status.
Original Note:
CM reviewed chart, discussed with [facility] at [facility], have bed today if auth received. Auth submitted to [facility], faxed to [phone], pending reference number #[id number]. CM will continue to follow for all discharge planning needs.
Plan; [facility] once auth received.
--- NOTE | 2024-05-31 10:48 | W.PN.HOSP.TC ---
Addendum entered and electronically signed by Celine Rodriguez MD 06/01/24 08:30:
total DC time 38 min
Addendum entered and electronically signed by Celine Rodriguez MD 05/31/24 12:51:
I personally performed a history and physical exam of the patient and discussed management with the resident. I reviewed the resident's note and agree with the documented findings and plan of care HPI/CC.
A/P:
# Acute Ischemic Stroke in the right temporal occipital region
# previous strokes x3, most recent in Jan 2024 with TNK at that time
Admission CT head no acute findings
CTA noted new occlusion of right posterior cerebral artery
MRI brain confirmed right occipital lobe and the right thalamus, in the distribution of the right posterior cerebral artery.
s/p tenecteplase 05/27/2024
Brilinta per neuro
PT/OT/PM&R recc Julián, dispo to Julián
Of note, LDL 25
# Essential HTN
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
# HLD
LDL 25
Continue Statins
# NIDDM
# Influenza A positive, ?trigger for stroke
< 48 hours since onset,
Started Oseltamivir x 5 d
DVT proph SCD
code status, FULL CODE
Original Note:
Today's Communication/Plan
-
.
Assessment / Plan
Assessment / Plan
1. Acute Ischemic Stroke
- History of 3 prior strokes with residual weakness on left per
- CT head 05/27/2024: Reviewed, chronic senescent changes and multiple chronic infarcts. No acute intracranial hemorrhage or appreciable new acute infarct within the limitations of extensive small vessel ischemic disease. An MRI would be more
sensitive for the evaluation of acute ischemia.
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 Chronic high-grade short segment stenosis of the M2 segment of the right middle cerebral artery, similar compared to the CT angiogram from 01/23/2024. Stable
50% stenosis of the right carotid bulb. CT perfusion: right PRAWN TRAWLER HAND territory core infarct 11 cc, penumbra 42 cc
- Repeat MRI Brain at 24 Hrs: Regions of acute to subacute infarction involving the right occipital lobe and the right thalamus, in the distribution of the right posterior cerebral artery.
- NIH Stroke Scale 6 in the ED; 0 s/p TNK in ICU; continue neurologic checks
- No episodes of bleeding over 72 h; PT/OT started yesterday, Brilinta restarted.
- PMnR eval: discharge to Acute Inpatient Rehab
- Swallow Study done; okay to advance diet
05/28: Patient appears confused this morning, STAT CT Head to r/o bleed: no evidence of bleed
05/29: Patient returned to baseline; CT negative. Possibly temporary secondary to influenza.
05/30: Discharge planning to acute care rehab; CM made aware.
05/31: CM contacted; still awaiting prior auth
2. Essential HTN
- BP stable.
3. HLD/Hx Stroke
- Continue Statins
4. NIDDM
- Follow CMP
5. Influenza A
- < 48 hours since onset in ED
- Last day of Oseltamivir x 5 d (D 09/24)
- Patient notes improvement in sx
Anticipated Discharge: Today
Subjective/Interval History
-
Date of Service: May 31, 2024
Patient seen and examined while resting comfortable in bed and watching TV. Patient states that she is feeling better than yesterday. Denies any specific complaints of pain, new weakness, or trouble breathing. Patient is awaiting prior auth for
Julián.
Objective Data
-
Labs:
Laboratory Results
05/31/24
08:44
WBC 8.0
Hgb 12.4
Hct 37.1
Plt Count 320
Sodium 140
Potassium 3.9
Chloride 103
Carbon Dioxide 22
BUN 20 H
Creatinine 0.9
Glucose 64 L
Calcium 8.9
Vital Signs:
Vital Signs
Temp Pulse Resp BP Pulse Ox
97.6 F 85 18 163/97 96
05/31/24 07:00 05/31/24 07:00 05/31/24 07:00 05/31/24 07:00 05/31/24 07:00
I&O
05/30/24 05/31/24 06/01/24
06:59 06:59 06:59
Intake Total 1200 / 1200 720 / 720
Balance 1200 / 1200 720 / 720
Review of Systems
-
History Source: Patient
Constitutional: Reports No Symptoms
Respiratory: Reports No Symptoms
Cardiac: Reports No Symptoms
Abdomen/GI: Reports No Symptoms
Musculoskeletal: Reports No Symptoms
Neuro: Reports No Symptoms
Physical Exam
-
General: No Apparent Distress and Comfortable
HEENT: Normocephalic and Atraumatic
Respiratory: Clear to Auscultation
Cardiac: Regular Rhythm and S1/S2
GI: Soft and Nontender
Musculoskeletal: No Clubbing, No Cyanosis and No Edema
Skin: Warm
Neuro: Awake, Alert, Oriented (to person and place. ) and Other (4/5 LLE, chronic; no new focal neurologic deficits)
Psych: Calm
Data Reviewed
-
Labs: Labs Reviewed by me
[2024-05-31 11:38] VITALS: BP 144/71
--- NOTE | 2024-05-31 14:39 | W.DCSUMMARY ---
Documented by User: Jaylen Bryson DO, Resident 05/31/24 15:00
Discharge Summary
Discharge Data
Date of Admission: 05/27/24
Date of Discharge: 05/31/24
-
Pending Results: No
Hospital Course
Jasmin Buchanan is an 78 year old female with a past medical history of hyperlipidemia, non-insulin dependent diabetes mellitus, hypertension, and 3 prior strokes (one treated with tenectaplase) who presented to the emergency department at [facility] on 05/27/2024 with focal neurologic deficits. Approximately 90 minutes prior to arrival in the emergency department, the patient's noticed that the patient was slurring her speech, exhibited a wobbly gait, and upon trying to put on
her left shoe, had trouble getting her left foot in the proper position to put it on. Additionally, EMS noted that on route to the hospital, the patient's slurred speech clearly progressively worsened.
In the emergency department, the patient's blood pressure was 156/[address] angiogram of the head/brain showed a new occlusion of the right posterior cerebral artery. The patient received tenecteplase in the emergency department under the care of
neurology prior to transfer to the ICU. Patient was under stroke protocol while in the ICU, did not have any episodes of bleeding, and exhibited interval improvements in NIH Stroke Scale assessments.
24 hours post stroke, repeat imaging of the brain did not show any additional bleeding. Patient's home blood pressure medications were restarted. 72 hours post stroke, the patient's antiplatelet therapy was restarted. The patient continued to be
clinically stable. The patient was left with no focal neurologic deficits after her stroke. She does have mild left lower extremity weakness and loss of position sense secondary to prior strokes, but the patient's endorses that this is
unchanged.
Upon admission on 05/27/2024, patient also tested positive for Influenza A. The patient received 5 days of Oseltamivir while admitted in the hospital with subjective improvement of her symptoms.
The patient was discharged to [facility] on 05/31/2024 for continued physical and occupational therapy post stroke, prior to returning home.
Discharge Plan
-
Patient Disposition: Acute Rehab Facility
Discharge Diagnosis/Procedures: Acute Ischemic Stroke
Condition: Fair
Diet: Diabetic, Carb Controlled
Activity: As tolerated
Referrals:
Kenny Turner MD [Family Provider] - in less than 1 week
Prescriptions:
Continued
quetiapine [Seroquel] 25 mg Tablet
25 mg PO HS
glimepiride 1 mg Tablet
1 mg PO BID
estradiol 0.01 % (0.1 mg/gram) Cream
1 appful VAGINAL TUFR
trazodone 50 MG tablet
50 mg PO HS
clotrimazole 1 % cream
1 applic TOPICAL BID
Brilinta 90 mg tablet
90 mg PO BID
amlodipine 5 mg Tablet
5 mg PO DAILY Qty: 90 0RF
miconazole nitrate [Miconazorb AF] 2 % Powder
1 applic topical BIDPRN PRN (Reason: IRRITATION/REDDNESS) 30 Days Qty: 1 0RF
docusate sodium 100 mg Capsule
100 mg PO BID 30 Days Qty: 60 0RF
bisacodyl 5 mg Tablet,Delayed Release (Dr/Ec)
10 mg PO DAILYPRN PRN (Reason: constipation) 30 Days Qty: 3 0RF
Metamucil Fiber Singles 3.4 gram Powder In Packet
1 packet PO DAILY 30 Days Qty: 30 0RF
sennosides [Senna Laxative] 8.6 mg Tablet
17.2 mg PO HS 30 Days Qty: 30 0RF
pantoprazole 20 mg Tablet,Delayed Release (Dr/Ec)
20 mg PO DAILY 30 Days Qty: 30 0RF
levothyroxine 50 mcg Tablet
50 mcg PO DAILY @ 0600 30 Days Qty: 30 0RF
cholecalciferol (vitamin D3) 50 mcg (2,000 unit) Tablet
50 mcg PO DAILY 30 Days Qty: 30 0RF
atorvastatin 80 mg Tablet
80 mg PO QPM 30 Days Qty: 30 0RF
venlafaxine 75 MG capsule,extended release 24hr
225 mg PO DAILY Qty: 90 0RF
ezetimibe 10 mg Tablet
10 mg PO HS 30 Days Qty: 30 0RF
Discharge Orders:
Discharge Patient (As Directed); Ordered 05/31/24
Ordered By: Jaylen Bryson
Discharge Date and Time
Discharge Date/Time: 05/31/24 15:30
Print Language: EGYPTIAN

Documented by User: Celine Rodriguez MD 06/01/24 08:29
Discharge Summary
Discharge Data
Date of Admission: 05/27/24
Date of Discharge: 05/31/24
Hospital Course
Jasmin Buchanan is an 78 year old female with a past medical history of hyperlipidemia, non-insulin dependent diabetes mellitus, hypertension, and 3 prior strokes (one treated with tenectaplase) who presented to the emergency department at [facility] on 05/27/2024 with focal neurologic deficits. Approximately 90 minutes prior to arrival in the emergency department, the patient's noticed that the patient was slurring her speech, exhibited a wobbly gait, and had trouble getting
her left foot in the proper position to put it on. Additionally, EMS noted that on route to the hospital, the patient's slurred speech clearly progressively worsened.
In the emergency department, the patient's blood pressure was 156/[address] angiogram of the head/brain showed a new occlusion of the right posterior cerebral artery. The patient received tenecteplase in the emergency department and was
transferred to the ICU. She did not have any episodes of bleeding, and exhibited interval improvements in NIH Stroke Scale assessments.
Patient's home blood pressure medications were restarted. 72 hours post stroke, the patient's antiplatelet therapy was restarted. The patient continued to be clinically stable. The patient was left with no new focal neurologic deficits after her
stroke. She does have mild left lower extremity weakness and loss of position sense secondary to prior strokes, but the patient's endorses that this is unchanged.
Upon admission on 05/27/2024, patient also tested positive for Influenza A. The patient received 5 days of Oseltamivir while admitted in the hospital with subjective improvement of her symptoms.
The patient was discharged to [facility] on 05/31/2024 for continued physical and occupational therapy post stroke, prior to returning home.
Discharge Plan
-
Patient Disposition: Acute Rehab Facility
Discharge Diagnosis/Procedures: Acute Ischemic Stroke
Condition: Fair
Diet: Diabetic, Carb Controlled
Activity: As tolerated
Referrals:
Kenny Turner MD [Family Provider] - in less than 1 week
Prescriptions:
Continued
quetiapine [Seroquel] 25 mg Tablet
25 mg PO HS
glimepiride 1 mg Tablet
1 mg PO BID
estradiol 0.01 % (0.1 mg/gram) Cream
1 appful VAGINAL TUFR
trazodone 50 MG tablet
50 mg PO HS
clotrimazole 1 % cream
1 applic TOPICAL BID
Brilinta 90 mg tablet
90 mg PO BID
amlodipine 5 mg Tablet
5 mg PO DAILY Qty: 90 0RF
miconazole nitrate [Miconazorb AF] 2 % Powder
1 applic topical BIDPRN PRN (Reason: IRRITATION/REDDNESS) 30 Days Qty: 1 0RF
docusate sodium 100 mg Capsule
100 mg PO BID 30 Days Qty: 60 0RF
bisacodyl 5 mg Tablet,Delayed Release (Dr/Ec)
10 mg PO DAILYPRN PRN (Reason: constipation) 30 Days Qty: 3 0RF
Metamucil Fiber Singles 3.4 gram Powder In Packet
1 packet PO DAILY 30 Days Qty: 30 0RF
sennosides [Senna Laxative] 8.6 mg Tablet
17.2 mg PO HS 30 Days Qty: 30 0RF
pantoprazole 20 mg Tablet,Delayed Release (Dr/Ec)
20 mg PO DAILY 30 Days Qty: 30 0RF
levothyroxine 50 mcg Tablet
50 mcg PO DAILY @ 0600 30 Days Qty: 30 0RF
cholecalciferol (vitamin D3) 50 mcg (2,000 unit) Tablet
50 mcg PO DAILY 30 Days Qty: 30 0RF
atorvastatin 80 mg Tablet
80 mg PO QPM 30 Days Qty: 30 0RF
venlafaxine 75 MG capsule,extended release 24hr
225 mg PO DAILY Qty: 90 0RF
ezetimibe 10 mg Tablet
10 mg PO HS 30 Days Qty: 30 0RF
Discharge Orders:
Discharge Patient (As Directed); Ordered 05/31/24
Ordered By: Jaylen Bryson
Discharge Date and Time
Discharge Date/Time: 05/31/24 15:30
Print Language: EGYPTIAN
--- NOTE | 2024-05-31 15:40 | PTCARENOTE ---
NIHSS stroke scale completed per protocol. NIHSS 5. Forgetful and confused conversation at times. OOB to chair x1 with rolling walker. Pt with discharge orders to [facility]. IV sites removed. Pt transferred to [facility] by lilly.
== END 2024-05-31 15:30 | DRG 62 ==
LOC: 4 WEST ACU 11:09
PROVIDERS: ADMITTING PHYSICIAN Internal Medicine; ATTENDING PHYSICIAN Internal Medicine; CONSULT PHYSICIAN Physical Medicine & Rehabilitation; CONSULT PHYSICIAN Psychiatry & Neurology Clinical Neurophysiology; EMERGENCY PHYSICIAN Emergency Medicine; FAMILY PHYSICIAN Family Medicine; OTHER PHYSICIAN Internal Medicine Critical Care Medicine; OTHER PHYSICIAN Psychiatry & Neurology Neurology
PROC: 3E03317 Introduction of Other Thrombolytic into Peripheral Vein, Percutaneous Approach (ICD-10-PCS; 2024-05-27)
DX: I63.531 Cerebral infarction due to unspecified occlusion or stenosis of right posterior cerebral artery (principal); F03.B3 Unspecified dementia, moderate, with mood disturbance; F33.9 Major depressive disorder, recurrent, unspecified; I69.354 Hemiplegia and hemiparesis following cerebral infarction affecting left non-dominant side; R41.4 Neurologic neglect syndrome; F03.B4 Unspecified dementia, moderate, with anxiety; G93.40 Encephalopathy, unspecified; I63.511 Cerebral infarction due to unspecified occlusion or stenosis of right middle cerebral artery; I10 Essential (primary) hypertension; E78.00 Pure hypercholesterolemia, unspecified; E11.65 Type 2 diabetes mellitus with hyperglycemia; Z79.890 Hormone replacement therapy; E03.9 Hypothyroidism, unspecified; K59.00 Constipation, unspecified; Z79.02 Long term (current) use of antithrombotics/antiplatelets; J10.1 Influenza due to other identified influenza virus with other respiratory manifestations; R47.1 Dysarthria and anarthria; R47.01 Aphasia; K21.9 Gastro-esophageal reflux disease without esophagitis; Z79.899 Other long term (current) drug therapy; Z87.891 Personal history of nicotine dependence; Z80.8 Family history of malignant neoplasm of other organs or systems; Z82.5 Family history of asthma and other chronic lower respiratory diseases; Z90.49 Acquired absence of other specified parts of digestive tract; Z96.653 Presence of artificial knee joint, bilateral; Z96.611 Presence of right artificial shoulder joint; R32 Unspecified urinary incontinence; M79.7 Fibromyalgia; R29.706 NIHSS score 6; Z87.442 Personal history of urinary calculi; Z11.52 Encounter for screening for COVID-19
CPT/HCPCS: 0042T; 70450; 70496; 70498; 70551; 71045; 80048; 80053; 80061; 82962; 85025; 85027; 85610; 85730; 87502; 87811; 92523; 92610; 93005; 96374; 97112; 97116; 97163; 97167; 97530; 97535; 99291; J3101; Q9967

== ENCOUNTER 2024-07-09 14:45 | Emergency (ER) | payer OTHER, SELFPAY ==
[2024-07-09 14:58] VITALS: BP 125/67
--- NOTE | 2024-07-09 16:35 | ED.GENMED ---
History of Present Illness
General
Chief Complaint: Fall
Source: patient
Exam Limitations: none
Time Seen by Provider: 07/09/24 16:17
Nursing documentation reviewed up to this point in time: agreed with
History of Present Illness
History of Present Illness:
Patient is an 78-year-old female brought to the ER by EMS. Family at bedside. Patient reports she normally gets in with a wheelchair but decided to try to walk into her family room and lost her footing and fell hitting her head on the floor.
Family reports she is on Brilinta which is why they brought her here for evaluation. She denies loss of conscious. Family reports they just walked away from her 4 minutes later she fell. Daughter at bedside reports nose did bleed she is a small
laceration to the nose. Unsure last tetanus. She denies any other injury. She denies any upper or lower extremity injury. Denies any nausea or vomiting. She does have a headache.
Past History
Past History
ED Past Medical History: CVA, Hypercholesterolemia, NIDDM (Controlled by Diet) and Other (Fecal incontinence)
ED Past Surgical History: Appendectomy, Cholecystectomy, Orthopedic (Bilateral knee replacements, right shoulder replacement) and Other (Cataracts)
Social History
Tobacco: Former smoker
Alcohol: None
Drug: None
Personal:
Living: with family
Employment: Retired
Family History
Family History: Other (Mother with COPD father of brain cancer )
Review of Systems
Review of Systems
Allergies reviewed?: Yes
All Other Systems: ROS reviewed and negative except as documented in HPI and ROS
Constitutional: Reports no symptoms
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
Respiratory: Reports no symptoms
Cardiac: Reports no symptoms
ABD/GI: Reports no symptoms; Denies nausea or vomiting
Musculoskeletal: Reports no symptoms
Skin: Reports no symptoms
Neurological: Reports headache and other ( no LOC )
Psychiatric: Reports no symptoms
Phy Exam
General Physical Exam
General Presentation: no apparent distress
General age: appears stated age
General Skin: warm
General Habitus: normal and elderly
General Mental: alert
General Hydration: appears well hydrated
ENT Exam
ENT Exam: other (+ Superficial abrasion /laceration to nose mildly tender + dried blood to left nares )
Eye Exam
Eye Exam: PERRL and EOMI
Eye Exam General: PERRL: bilateral and EOM intact: bilateral
Pupil Exam: Bilateral: round and reactive
Neurological Exam
Neurological Exam: alert and oriented x3
Musculoskeletal Exam
Musculoskeletal Exam: other (mildly sore to neck ; good range of motion to upper /lower extremities; )
Skin Exam
Skin Exam: normal color and warm/dry
Course
Orders/Labs/Results
Orders:
Orders
07/09/24 15:05
CT Head W/o Iv Contrast Urgent
Comment:
Reason For Exam: fall, facial head strike. on Brilinta. No loc.
07/09/24 16:34
CT Facial Bones W/o Iv Contras Urgent
Comment:
Reason For Exam: trauma
07/09/24 16:35
CT Cervical Spine W/o Iv Contr Urgent
Comment:
Reason For Exam: trauma
Tetanus/Diphth/Acelpertussis [Adacel] 0.5 ml IM .ONCE ONE
07/09/24 18:12
Amoxicillin [Amoxil] 500 mg PO NOW STA
Vital Signs
Initial and Last Documented VS:
Initial Vital Signs
Temp Pulse Resp BP Pulse Ox
98.1 F 94 18 125/67 97
07/09/24 14:58 07/09/24 14:58 07/09/24 14:58 07/09/24 14:58 07/09/24 14:58
Last Documented Vital Signs
Temp Pulse Resp BP Pulse Ox
98.1 F 94 16 125/67 97
07/09/24 14:58 07/09/24 14:58 07/09/24 17:36 07/09/24 14:58 07/09/24 14:58
MDM/Problems Addressed
Differential Diagnosis Includes:
Not limited to head injury, nasal bone fracture, laceration, neck injury
MDM/Problems Addressed:
Patient is an 78-year-old female that was brought for mechanical fall, did hit head and sustained a small superficial laceration to bridge of nose. She is on Brilinta. CT head and cervical spine negative CT facial bones does show an acute
nondisplaced fracture of the tip of the nasal bones.
Wound was cleaned with copious laura normal saline this wound does not need repair wound is superficial/abrasion. Tetanus was updated. Will DC with amoxicillin to prevent infection with ENT follow-up
*Radiology
Radiology exam reviewed: radiology read reviewed
*Pulse Oximetry
Patient hypoxic: no
*Critical Care Note
Total Time (30-74mins, 75-104mins- exclusive of procedures): Not Applicable
ED Attending Note
-
Portions of this chart may have been created with voice recognition software.� Occasional wrong word or��sound alike� substitutions may have occurred due to the inherent limitations of voice recognition software.
Discharge Plan
Departure
Patient Disposition: Home (Routine Discharge)
Date of Disposition: 07/09/24
Time of Disposition: 18:16
Patient with high blood pressure during this ER visit?: No
Condition: Fair
Covid-19: Not Applicable
Discharge Problem:
Fracture of nasal bone, Abrasion, Head injury
Instructions: Wound Care (DC), Head Injury in Adults (DC), Nose Fracture ED
Prescriptions:
New
amoxicillin 500 mg capsule
500 mg PO Q8H Qty: 15 0RF
No Action
quetiapine [Seroquel] 25 mg Tablet
25 mg PO HS
estradiol 0.01 % (0.1 mg/gram) Cream
1 appful VAGINAL TUFR
trazodone 50 MG tablet
50 mg PO HS
clotrimazole 1 % cream
1 applic TOPICAL BIDPRN PRN (Reason: rash)
Brilinta 90 mg tablet
90 mg PO BID
glimepiride 1 mg Tablet
1 mg PO BID
amlodipine 5 mg Tablet
5 mg PO DAILY Qty: 90 0RF
pantoprazole 20 mg Tablet,Delayed Release (Dr/Ec)
20 mg PO DAILY 30 Days Qty: 30 0RF
levothyroxine 50 mcg Tablet
50 mcg PO DAILY @ 0600 30 Days Qty: 30 0RF
cholecalciferol (vitamin D3) 50 mcg (2,000 unit) Tablet
50 mcg PO DAILY 30 Days Qty: 30 0RF
atorvastatin 80 mg Tablet
80 mg PO QPM 30 Days Qty: 30 0RF
venlafaxine 75 MG capsule,extended release 24hr
225 mg PO DAILY Qty: 90 0RF
ezetimibe 10 mg Tablet
10 mg PO HS 30 Days Qty: 30 0RF
Januvia 100 mg Tablet
100 mg PO DAILY 30 Days Qty: 30 0RF
Referrals:
Kenny Turner MD [Family Provider] -
Terrance Martínez MD [Active] -
Activity Restrictions/Additional Instructions:
As discussed wash abrasion twice a day with soap and water pat dry and apply small layer of antibiotic ointment to the area.
An antibiotic has been prescribed to prevent infection for the next 5 days. This was sent to your pharmacy.
You were given first dose here in the ED.
You may take Tylenol if needed. Return if any worsening of symptoms. Follow-up with family doctor next of days for reevaluation. In addition follow-up with ENT for further evaluation of nasal fracture.
Interventions
Interventions:
*Risk Screen - Suicide Last Done: 07/09/24 17:36
*General Assessment Last Done: 07/09/24 17:36
*Neglect/Abuse Screening Last Done: 07/09/24 17:36
ED- Fall Risk Assessment Last Done: 07/09/24 17:36
*ED COVID-19 Vaccine History Last Done: 07/09/24 17:36
ED-Musculoskeletal Assessment Last Done: 07/09/24 17:36
ED- Neurological Assessment Last Done: 07/09/24 17:36
ED-Skin Assessment Last Done: 07/09/24 17:36
Discharge Date and Time
Print Language: AMHARIC
[2024-07-09] MEDS: ADACEL 0.5 ML IM (17:03)
[2024-07-09] MEDS: AMOXIL 500 MG PO (18:43)
[2024-07-09 18:48] VITALS: BP 125/71
== END 2024-07-09 18:50 | disposition home or self-care (01) ==
LOC: EMR 14:45
PROVIDERS: EMERGENCY PHYSICIAN Emergency Medicine; FAMILY PHYSICIAN Family Medicine
DX: S02.2XXA Fracture of nasal bones, initial encounter for closed fracture (principal); S00.31XA Abrasion of nose, initial encounter; W01.0XXA Fall on same level from slipping, tripping and stumbling without subsequent striking against object, initial encounter; E78.00 Pure hypercholesterolemia, unspecified; E11.9 Type 2 diabetes mellitus without complications; Z86.73 Personal history of transient ischemic attack (TIA), and cerebral infarction without residual deficits; Z87.891 Personal history of nicotine dependence; Z79.02 Long term (current) use of antithrombotics/antiplatelets; Z90.49 Acquired absence of other specified parts of digestive tract; Z23 Encounter for immunization
CPT/HCPCS: 99284; 90471; 70450; 70486; 72125; 90715

== ENCOUNTER 2024-10-02 11:39 | Inpatient (IN) | payer OTHER, SELFPAY ==
[2024-10-02] VITALS (9 sets, daily range): BP systolic 124–156; BP diastolic 44–115; BMI 21.8
--- NOTE | 2024-10-02 08:51 | ED.GENMED ---
History of Present Illness
General
Chief Complaint: Fall
Source: patient, records and ambulance crew
Exam Limitations: none
Time Seen by Provider: 10/02/24 08:50
Nursing documentation reviewed up to this point in time: agreed with
History of Present Illness
History of Present Illness:
79-year-old female with history as noted presents to the emergency room from [facility] where she lives with her ; she presents via EMS for evaluation after fall complaining of left hip pain. Patient reports that she was on the couch and
she rolled off and landed on her left hip. She has significant pain in the left hip EMS called to bring her to the hospital. She is not sure whether she hit her head. She denies loss of consciousness. She denies any headache, neck pain. Denies
any back pain. Denies any chest/rib pain or abdominal pain. She denies any pain in the rest of her extremities. She says she cannot move the left hip at all due to severe pain. She is on Brilinta.
Past History
Past History
ED Past Medical History: CVA, Hypercholesterolemia, NIDDM (Controlled by Diet) and Other (Fecal incontinence)
ED Past Surgical History: Appendectomy, Cholecystectomy, Orthopedic (Bilateral knee replacements, right shoulder replacement) and Other (Cataracts)
Social History
Tobacco: Former smoker
Alcohol: None
Drug: None
Personal:
Living: with family
Employment: Retired
Family History
Family History: Other (Mother with COPD father of brain cancer )
Review of Systems
Review of Systems
All Other Systems: ROS reviewed and negative except as documented in HPI and ROS
Respiratory: Denies trouble breathing
Cardiac: Denies chest pain
ABD/GI: Denies abdominal pain, nausea or vomiting
: Denies flank pain
Musculoskeletal: Reports joint pain (Left hip pain); Denies neck pain or back pain
Neurological: Denies headache
Phy Exam
Physical Exam
Physical Exam:
General: Awake, alert, appears uncomfortable
Head: Normocephalic, atraumatic
Eyes: Conjunctiva normal, pupils equal round and reactive to light bilaterally
Throat: Airway intact, handling secretions
Neck: Trachea midline, no cervical spine tenderness, moves cervical spine through full range of motion without pain
Back: No signs of trauma to the back or flank and no tenderness in the thoracic or lumbar spine
Lungs: Breathing comfortably no distress
Heart: Regular rate; no chest wall tenderness
Abd: Soft, non distended, nontender
Neuro: Cranial nerves grossly intact, speech fluid; distal motor and sensory intact in the left leg
Skin: no lacerations or abrasions noted
Extremities: Left hip there is shortened, held in flexion and external rotation�palpable deformity along the lateral aspect of the hip; she has strong distal pulses in the left lower extremity; right lower extremity and both upper extremities appear
atraumatic, nontender, good pulses
Scores
Heart Failure Risk
Heart Failure Risk Score: Not Applicable
Heart Score for Chest Pain Patients
STEMI patient?: Not applicable
Withdrawal Assessment of Alcohol
Withdrawal Assessment Completed?: Not applicable
Course
Orders/Labs/Results
Orders:
Orders
10/02/24 08:50
HYDROmorphone [Dilaudid] 0.5 mg .ROUTE .STK-MED ONE
HYDROmorphone [Dilaudid] 0.5 mg IV NOW STA
Ondansetron Injectable [Zofran] 4 mg .ROUTE .STK-MED ONE
Ondansetron Injectable [Zofran] 4 mg IV NOW STA
CR Hip - LT w/wo Pel 2-3 Vw* Urgent
Comment:
Reason For Exam: hip pain s/p fall
Include a pelvis x-ray?: Yes
10/02/24 08:51
CT Head W/o Iv Contrast Urgent
Comment:
Reason For Exam: fall on blood thinners
10/02/24 08:57
Complete Blood Count/With Diff Urgent
Comprehensive Metabolic Panel Urgent
PTT Urgent
Prothrombin Time Urgent
10/02/24 08:58
Type+Screen Urgent
10/02/24 09:12
HYDROmorphone [Dilaudid] 0.5 mg IV NOW STA
10/02/24 Lunch
Regular
At Your Request: Limited, Power Generation Technician Required
10/02/24 10:24
Electrocardiogram (*1) Urgent
Reason for Study: PreOp
ORTHOPEDIC CONSULT Urgent
Consulting Provider: Caleb Maharaj
Was physician already notified: Yes
EKG- Treatment ONCE
10/02/24 11:20
Admit/Transfer Patient As Directed
Co-Sign Provider:
Level of Care: Inpatient admission
Assign to:: Medical/Surgical
Physician / Group: Hospitalist
Diagnosis: Displaced intertrochanteric proximal left femur fracture
Reason for Hospitalization: .
Expected length of stay greater than two midnights?: Yes
ELOS- Estimated Length of Stay in days: 3
I certify the patient meets the requirements for IP care: Yes
PRN Pain Medication Management As Directed
May give lesser potent ordered pain med per pt: Yes
preference::
Protocol:: Medication orders for pain may be administered in a
manner that supports deferring to patient preference
when the pt is:
- Requesting an ordered lesser potent pain medication.
Least to most potent pain medications are defined
as: acetaminophen < NSAID < tramadol < opioids
(morphine, oxycodone, hydromorphone).
- Requesting a lesser dose of the same medication IF
ORDERED.
- Requesting a less intrusive route of administration
if both routes are prescribed by the provider (PO <
IV).
10/02/24 11:22
Code Status As Directed
Resuscitation Status: Do not resuscitate
Reached after discussion with pt or family/Healthcare POA: Yes
HYDROmorphone [Dilaudid] 0.5 mg IV NOW STA
DNR Bracelet Application ONCE
10/02/24 11:55
Morphine Sulfate 2 mg IV Q6HPRN PRN
Abnormal Lab Results
10/02/24
08:57
WBC 13.0 H 10^3/uL
(4.8-10.8)
RBC 4.01 L 10^6/uL
(4.20-5.40)
Hgb 10.2 L g/dL
(12.0-16.0)
Hct 31.6 L %
(37.0-47.0)
MCV 78.8 L fL
(81.0-99.0)
MCH 25.4 L pg
(27.0-31.0)
MCHC 32.3 L g/dL
(33.0-37.0)
RDW 14.6 H %
(11.5-14.5)
Abs Immat Gran (auto) 0.1 H 10^3/uL
(0-0.05)
Absolute Neuts (auto) 8.7 H 10^3/uL
(1.4-6.5)
Absolute Monos (auto) 0.9 H 10^3/uL
(0.1-0.6)
Immature Gran % 0.8 H %
(0-0.5)
Glucose 248 H mg/dl
(70-99)
10/02/24 08:57
10/02/24 08:57
Vital Signs
Initial and Last Documented VS:
Initial Vital Signs
BP
146/110
10/02/24 08:52
Last Documented Vital Signs
Temp Pulse Resp BP Pulse Ox
36.6 C 97 17 124/44 81
10/02/24 08:53 10/02/24 12:47 10/02/24 12:47 10/02/24 12:47 10/02/24 12:47
MDM/Problems Addressed
Differential Diagnosis Includes:
Hip fracture, hip dislocation, hip contusion
MDM/Problems Addressed:
79-year-old female presents after a fall off of the couch complaining of severe left hip pain. Unsure of head strike she is on blood thinners. Vitals and exam as above. Will plan to check x-ray of the hip. Check CT head. Check basic labs and
provide symptomatic treatment. Reassess after the above.
CT head negative for any acute pathology. X-ray hip reviewed by me shows left hip fracture. Case discussed with orthopedist for consultation. Case discussed with hospitalist service for admission.
Ortho requested full femur x-ray�order placed. Patient did require dose of fentanyl to facilitate imaging. Hospitalist updated.
Chronic conditions affecting care:
Stroke history on Brilinta
*Radiology
Radiology exam reviewed: preliminary read by ED provider and radiology read reviewed
*Pulse Oximetry
Patient hypoxic: no
*EKG
Interpreted by ED Provider?: Yes
Heart Rate: 86
Rate: normal
Rhythm: sinus
[place]: left axis deviation
Interval: normal interval
QRS Pattern: low voltage
Ischemia: no ischemia
*Critical Care Note
Total Time (30-74mins, 75-104mins- exclusive of procedures): Not Applicable
Data Reviewed
Source: patient, records and ambulance crew
Patient Management
Discussion with other providers: Hospitalist (Discussed with hospitalist) and Medical Concierge (Discussed with orthopedics)
Escalation/DeEscalation of care consider admission/obs:
Admission indicated
ED Attending Note
-
Portions of this chart may have been created with voice recognition software.� Occasional wrong word or��sound alike� substitutions may have occurred due to the inherent limitations of voice recognition software.
Discharge Plan
Departure
Patient Disposition: Admit
Date of Disposition: 10/02/24
Time of Disposition: 10:24
Admit to doctor: Noam
Presentation/result/management discussed w/ accepting MD/DO: Hospitalist
Discharge Problem:
Closed fracture of left hip
Interventions
Interventions:
*Risk Screen - Suicide Last Done: 10/02/24 08:54
*Neglect/Abuse Screening Last Done: 10/02/24 08:54
*ED- Fall Risk Assessment Last Done: 10/02/24 09:44
*ED COVID-19 Vaccine History Last Done: 10/02/24 09:44
ED-Musculoskeletal Assessment Last Done: 10/02/24 09:53
ED- Neurological Assessment Last Done: 10/02/24 09:52
ED-Skin Assessment Last Done: 10/02/24 09:52
[2024-10-02] MEDS: DILAUDID 0.5 MG IV ×3 (08:56→11:30)
[2024-10-02] MEDS: ZOFRAN 4 MG IV (08:56)
[2024-10-02 09:08] LABS: % Basophils 0.4 % (0-2); % Eosinophils 1.6 % (0-6); % Immature Granulocytes 0.8 % (0-0.5); % Lymphocytes 23.3 % (20.5-51.1); % Monocytes 6.9 % (1.7-9.3); Absolute Basophils 0.1 10^3/uL (0-0.2); Absolute Eosinophils 0.2 10^3/uL (0-0.7); Absolute Immature Granulocytes 0.1 10^3/uL (0-0.05); Absolute Monocytes 0.9 10^3/uL (0.1-0.6); Absolute Neutrophils 8.7 10^3/uL (1.4-6.5); Hematocrit 31.6 % (37.0-47.0); Hemoglobin 10.2 g/dL (12.0-16.0); Mean Corp Hgb Conc. 32.3 g/dL (33.0-37.0); Mean Corpuscular Hgb 25.4 pg (27.0-31.0); Mean Corpuscular Volume 78.8 fL (81.0-99.0); Mean Platelet Volume 9.8 fL (7.4-10.4); Nucleated Red Blood Cells % 0 %; Platelet Count 329 10^3/uL (130-400); Red Blood Cell Count 4.01 10^6/uL (4.20-5.40); Red Cell Dist. Width 14.6 % (11.5-14.5)
[2024-10-02 09:23] LABS: ALT (SGPT) 26 U/L (0-35); AST (SGOT) 27 U/L (14-36); Albumin 3.8 g/dl (3.5-5.0); Alkaline Phosphatase 81 U/L (38-126); Blood Urea Nitrogen 16 mg/dl (7-17); Calcium 8.8 mg/dl (8.4-10.2); Carbon Dioxide 26 mmol/L (22-30); Chloride 107 mmol/L (98-107); Glucose 248 mg/dl (70-99); Potassium 4.4 mmol/L (3.5-5.1); Sodium 140 mmol/L (135-145); Total Bilirubin 0.5 mg/dl (0.2-1.3); Total Protein 6.9 g/dl (6.3-8.2); eGFR > 60.00
[2024-10-02 09:29] LABS: INR 0.98; PT 13.3 Sec (11.4-14.6)
[2024-10-02 09:30] LABS: APTT 25.3 Sec (23.4-35.0)
--- NOTE | 2024-10-02 11:24 | HPS.HSE ---
Family Physician
-
Family Physician: Kenny Turner
Chief Complaint
-
Fall with left hip pain/ left femur fracture
History of Present Illness
79-year-old female from [facility] where she lives with her ; she presented via EMS for evaluation after fall complaining of left hip pain. History taken from family, patient has impulsive behavior history with dementia, she was on the
couch and she rolled off and landed on her left hip. She has significant pain in the left hip EMS called to bring her to the hospital. She was not sure whether she hit her head. She denied loss of consciousness. She denied any headache, neck
pain. Denied any back pain. Denied any chest/rib pain or abdominal pain. She denied any pain in the rest of her extremities. She says she cannot move the left hip at all due to severe pain. She is on Brilinta.
Medical History
Past Medical History
Past Medical History: Reports Other (CVA, Hypercholesterolemia, NIDDM (Controlled by Diet) and Other (Fecal incontinence))
Past Surgical History: Reports Other (No recent majoy surgery )
Social History
Unable to obtain full social history at this time due to: Dementia
Tobacco: Non-smoker
Alcohol: None
Drug: None
Personal:
Living: With Family
Family History
Family History: Not pertinent
Allergies / Home Medications
Allergies reflects when Allergies were last updated in [facility].
Home Medications with original date entered in [facility]
Allergy/Medication List:
Allergies
Allergy/AdvReac Type Severity Reaction Status Date / Time
No Known Allergies Allergy Verified 02/20/24 16:52
Home Medications
amlodipine 5 mg tablet 5 mg PO DAILY #90 tabs 04/22/22
quetiapine 25 mg tablet (Seroquel) 25 mg PO HS Mental Health/Anxiety 01/23/24
trazodone 50 mg tablet 50 mg PO HS Sleep 01/23/24
ticagrelor 90 mg tablet (Brilinta) 90 mg PO BID Blood Clot Prevention/Tx 01/24/24
atorvastatin 80 mg tablet 80 mg PO QPM High Cholesterol 30 days #30 tabs 02/06/24
cholecalciferol (vitamin D3) 50 mcg (2,000 unit) tablet 50 mcg PO DAILY Supplement 30 days #30 tabs 02/06/24
ezetimibe 10 mg tablet 10 mg PO HS cholesterol 30 days #30 tabs 02/06/24
pantoprazole 20 mg tablet,delayed release 20 mg PO DAILY gerd 30 days #30 tabs 02/06/24
venlafaxine 75 mg capsule,extended release 24 hr 225 mg (3 x 75 mg) PO DAILY Mental Health/Anxiety #90 caps 02/06/24
sitagliptin phosphate 100 mg tablet (Januvia) 100 mg PO DAILY Diabetes 30 days #30 tabs 06/07/24
glimepiride 1 mg tablet 2 mg PO BID 07/09/24
levothyroxine 50 mcg tablet 50 mcg PO DAILY hypothyroid 10/02/24
Review of Systems
-
Unable to obtain full review of systems at this time due to: Dementia
History Source: Patient
Physical Exam
Vital Signs
Vital Signs
Temp Pulse Resp BP Pulse Ox
98 F 84 20 132/58 91
10/02/24 08:53 10/02/24 09:46 10/02/24 09:46 10/02/24 09:46 10/02/24 09:46
Physical Exam
General: No Apparent Distress and Comfortable
HEENT: Moist mucous membranes and Atraumatic
Respiratory: Clear
Cardiac: S1/S2 and Regular Rhythm
GI: Soft and Non Tender
Genito-urinary: No Pepe
Musculoskeletal: No Clubbing, No Cyanosis and No Edema
Skin: No Jaundice
Neuro: Awake and Other (She followed simple commands but unable to provide much history )
Psych: Calm and Apparent Dementia
Laboratory Results
-
10/02/24 08:57
10/02/24 08:57
Laboratory Results
PT 13.3 Sec (11.4-14.6) 10/02/24 08:57
INR 0.98 10/02/24 08:57
APTT 25.3 Sec (23.4-35.0) 10/02/24 08:57
Total Bilirubin 0.5 mg/dl (0.2-1.3) 10/02/24 08:57
AST 27 U/L (14-36) 10/02/24 08:57
ALT 26 U/L (0-35) 10/02/24 08:57
Alkaline Phosphatase 81 U/L (38-126) 10/02/24 08:57
Impression/Plan
-
79 female presented after a fall with left femur fracture
# left Femur fracture
History of mechanical fall
Admit to hospital
Start the pt on pain control with Tylenol and low dose IV Morphine for mod to severe pain
CT head no acute findings
Holding Brilinta pending surgery
Thrombo guards for now
Appreciate Ortho help
# Pre op evaluation
Patient has no history of ischemic heart disease or angina. Not in heart failure. No hypoxia. History of multiple strokes in the past. No chest pain per family. Will continue blood pressure control and statin. Holding Brilinta held for
surgery. Patient seems uncomfortable and unable to ambulate. Her baseline is wheelchair but she pivots to wheelchair and to toilet
Patient does not prohibitive contraindication for surgery. EKG no significant changes.
# Leukocytosis, reactive
# Recurrent major depressive disorder. Continue with venlafaxine, quetiapine and trazodone.
d/w daughter, important to c/w her meds, patient has impulsive behavior
#Ex-smoker
#History of PE.
# Hx loop recorder 2016
#HTN�benign
Avoid hypotension
#HLD
No changes in 10
#DM 2
Will continue with insulin/scale while perioperative/n.p.o. status
#GERD
No history of heartburn
#Constipation hx
-Monitor bowel movements
Other PMH:
fecal incontinence,
renal calculi history of laser lithotripsy ureteroscopy
DVT prophylaxis
CODE STATUS, DNR, confirmed with family
Total time spent to see the patient, examining the patient, review data and lab result, discussed treatment plan with patient, family, ER doctor, orthopedic, nursing staff around 75 minutes
[2024-10-02] MEDS: MORPHINE SULFATE 2 MG IV ×2 (12:13→18:17)
[2024-10-02] MEDS: SUBLIMAZE 100 MCG IV (13:07)
--- NOTE | 2024-10-02 14:12 | CON.ORTHO ---
Consultation
-
Date/Time Consultation Performed: 10/02/2024 215 pM
Consultation - Orthopedics
History
HPI: 79-year-old female history of dementia lives in [facility] presented emergency department status post fall with complaints of left hip pain and inability to bear weight. She was subsequently diagnosed with a left intertrochanteric femur
fracture. She was admitted to the hospital service. Orthopedics is consulted for further evaluation and treatment. This afternoon patient's daughter and grandson were at bedside. Unable to obtain history from patient secondary to dementia. They
report that she is recently been residing at [facility] for only about 3 weeks with her . Reports that unfortunately she sustained a fall this afternoon. They do report a history of remote bilateral total knee arthroplasty as well as a
left shoulder arthroplasty performed 6 or 7 years ago for fracture. They do report that she does take Brilinta at baseline. They do report that she has had several strokes recently which have significantly declined her baseline ambulatory status
as well as cognition.
Allergies / Home Medications
Past medical history: CVA, hypercholesterolemia, oyg-ufybmko-pbbyssnke diabetes
Past surgical history: Bilateral total knee arthroplasty, left shoulder arthroplasty
Family history: Not pertinent
Social history: Non-smoker lives with at [facility]
Allergy/AdvReac Type Severity Reaction Status Date / Time
No Known Allergies Allergy Verified 02/20/24 16:52
�Medication �Instructions �Recorded
amlodipine 5 mg tablet 5 mg PO DAILY #90 tabs 04/22/22
quetiapine 25 mg tablet (Seroquel) 25 mg PO HS Mental Health/Anxiety 01/23/24
trazodone 50 mg tablet 50 mg PO HS Sleep 01/23/24
ticagrelor 90 mg tablet (Brilinta) 90 mg PO BID Blood Clot 01/24/24
Prevention/Tx
atorvastatin 80 mg tablet 80 mg PO QPM High Cholesterol 30 02/06/24
days #30 tabs
cholecalciferol (vitamin D3) 50 50 mcg PO DAILY Supplement 30 days 02/06/24
mcg (2,000 unit) tablet #30 tabs
ezetimibe 10 mg tablet 10 mg PO HS cholesterol 30 days 02/06/24
#30 tabs
pantoprazole 20 mg tablet,delayed 20 mg PO DAILY gerd 30 days #30 02/06/24
release tabs
venlafaxine 75 mg capsule,extended 225 mg (3 x 75 mg) PO DAILY Mental 02/06/24
release 24 hr Health/Anxiety #90 caps
sitagliptin phosphate 100 mg 100 mg PO DAILY Diabetes 30 days 06/07/24
tablet (Januvia) #30 tabs
glimepiride 1 mg tablet 2 mg PO BID 07/09/24
levothyroxine 50 mcg tablet 50 mcg PO DAILY hypothyroid 10/02/24
Vital Signs / Lab Results
Temp Pulse Resp BP Pulse Ox
98 F 99 17 130/62 94
10/02/24 08:53 10/02/24 13:04 10/02/24 13:04 10/02/24 13:04 10/02/24 13:04
10/02/24 08:57
10/02/24 08:57
10 point review systems reviewed and negative unless otherwise stated
General: Somewhat uncomfortable appearing, not able to respond appropriately to questions
Musculoskeletal left lower extremity
Extremity shortened externally rotated
Tenderness palpation over groin or lateral trochanteric flare
No palpable ipsilateral knee effusion
Well-healed anterior knee surgical incision
Spontaneously moving toes
Unable to comply with detailed motor or sensory examination
Brisk cap refill
No other areas of visible grimace or palpable crepitus with palpation of long bones or joints on tertiary exam
Diagnostic studies
X-rays left hip as well as left femur independently viewed by myself. No evidence of somewhat comminuted intertrochanteric femur fracture. No evidence of distal fracture. No evidence of grossly unstable left total knee arthroplasty
Assessment / Plan
79-year-old female history of dementia status post fall with left intertrochanteric femur fracture. I do long detailed discussion with the patient's daughter as well as her grandson regarding diagnosis and treatment options. Daughter does report
that she is able to make medical decisions for her mother. We discussed both surgical and nonsurgical options. We discussed both arthroplasty and fixation options. After discussion we mutually acted to proceed with surgical intervention the form
of insertion cephalomedullary nail. We discussed risks benefits and alternatives to surgery. We discussed the usual expected perioperative postoperative course. After discussion verbal consent was obtained. Will plan to obtain written informed
consent prior to OR.
Nonweightbearing left lower extremity
N.p.o. at midnight
Hold anticoagulation including Brilinta in preparation for OR tomorrow
Pain control
Medical management per primary team
Plan: 2 OR tomorrow for operative fixation left hip fracture pending or availability of medical clearance.
[2024-10-02] MEDS: ATIVAN 0.5 MG IV (14:37)
[2024-10-02] MEDS: RISPERDAL 0.25 MG PO (16:42)
[2024-10-02] MEDS: TYLENOL 1000 MG PO (16:42)
[2024-10-02] MEDS: DESENEX/MITRAZOL/ZEASORB 1 APPLIC TOPICAL (20:40)
[2024-10-02] MEDS: SEROQUEL 25 MG PO (22:30)
[2024-10-02] MEDS: DESYREL 50 MG PO (22:35)
[2024-10-03] VITALS (8 sets, daily range): BP systolic 84–147; BP diastolic 49–102
[2024-10-03] MEDS: SYNTHROID 50 MCG PO (05:51)
--- NOTE | 2024-10-03 09:19 | W.PN.HOSP.TC ---
Today's Communication/Plan
-
Seen earlier
NPO for surgery
Assessment / Plan
Assessment / Plan
Physical Exam
General: No Apparent Distress and Comfortable
HEENT: Moist mucous membranes and Atraumatic
Respiratory: Clear
Cardiac: S1/S2 and Regular Rhythm
GI: Soft and Non Tender
Genito-urinary: No Pepe
Musculoskeletal: No Clubbing, No Cyanosis and No Edema
Skin: No Jaundice
Neuro: Awake and Other (She followed simple commands but unable to provide much history )
Psych: Calm and Apparent Dementia
79 female presented after a fall with left femur fracture
# left Femur fracture
History of mechanical fall
=c/w pain control with Tylenol and low dose IV Morphine for mod to severe pain
CT head no acute findings
Holding Brilinta
Thrombo guards for now
Appreciate Ortho help , d/w ortho, plan for surgery today
# Pre op evaluation
Patient has no history of ischemic heart disease or angina. Not in heart failure. No hypoxia. History of multiple strokes in the past. No chest pain per family. Will continue blood pressure control and statin. Holding Brilinta held for
surgery. Patient seems uncomfortable and unable to ambulate. Her baseline is wheelchair but she pivots to wheelchair and to toilet
Patient does not prohibitive contraindication for surgery. EKG no significant changes.
# Leukocytosis, reactive
# Recurrent major depressive disorder. Continue with venlafaxine, quetiapine and trazodone.
d/w daughter, important to c/w her meds, patient has impulsive behavior
#Ex-smoker
#History of PE.
# Hx loop recorder 2016
#HTN�benign
Avoid hypotension
#HLD
No changes in 10
#DM 2
Will continue with insulin/scale while perioperative/n.p.o. status
#GERD
No history of heartburn
#Constipation hx
-Monitor bowel movements
Other PMH:
fecal incontinence,
renal calculi history of laser lithotripsy ureteroscopy
DVT prophylaxis
CODE STATUS, DNR, confirmed with family
Total time spent to see the patient, examining the patient, review data and lab result, discussed treatment plan with patient around 75 minutes
Anticipated Discharge: 24 - 48 hours
Subjective/Interval History
-
Date of Service: October 03, 2024
Seen earlier
NPO for surgery
Objective Data
-
Vital Signs:
Vital Signs
Temp Pulse Resp BP Pulse Ox
97.8 F 91 19 126/87 91
10/03/24 06:55 10/03/24 06:55 10/03/24 06:55 10/03/24 06:55 10/03/24 06:55
[2024-10-03] MEDS: JANUVIA 100 MG PO (09:28)
[2024-10-03] MEDS: EFFEXOR XR 225 MG PO (09:28)
[2024-10-03] MEDS: NORVASC 5 MG PO (09:29)
[2024-10-03] MEDS: DESENEX/MITRAZOL/ZEASORB 1 APPLIC TOPICAL ×2 (09:29→21:52)
[2024-10-03] MEDS: PROTONIX 20 MG PO (09:29)
--- NOTE | 2024-10-03 09:36 | CM ---
CM following re: discharge planning.
Reviewed pt's chart, met with pt and pt's son Kwadwo at bedside.
Pt is an 79 year old female, admitted with primary dx of left intertrochanteric femur fracture. Pt to OR today.
Pt reports she moved with her to [facility] independent apartment on 09/07/24, has 2 supportive children. Pt reports she uses a walker with assistance at baseline, uses a wheelchair for a long distance due to stroke in the past.
Both pt and her son are aware that pt will need a short term rehab after the surgery and they requested [facility]. CM spoke to [facility] admissions officer and she stated that they do have a policy that in order for admission to [place]
[facility] pt must be a resident of [facility] for 30 days and 30 days will be on Tuesday10/07/24. Both pt and her son made a strong request they do want only [facility].
A referral to [facility] will be made after PT/OT evaluations and recommendations.
PCP: Kenny Turner
Pharmacy: [facility].
D/C plan: [facility] for a short term rehab.
CM will follow to assist pt with discharge to [facility].
[2024-10-03] MEDS: MORPHINE SULFATE 2 MG IV (09:43)
[2024-10-03 13:02] LABS: Glucose - Point of Care 163 mg/dl (70-99)
[2024-10-03] MEDS: NOVOLOG FLEXPEN-MODERATE RESISTANCE 1 UNITS SC (13:25)
--- NOTE | 2024-10-03 16:59 | OR.RPT ---
Operative Report
Operative Report
Date
October 03, 2024
Anesthesia Type:
General
Operative Indications:
Left
Intertrochanteric femur fracture
Operative Findings :
Same
Complications:
None
Implants:
Laron gamma nail , 125 degree x 10 mm nail, 95 mm cephalomedullary nail, 35 x 5 mm distal interlocking screw
Procedure and Technique:
Insertion Left short cephalomedullary nail
INDICATIONS FOR PROCEDURE:
79-year-old patient history of dementia presented status post mechanical fall. They were subsequently diagnosed with a peritrochanteric femur fracture. Orthopedics was consulted for further evaluation and treatment. After discussion with the
patient and family, the decision was made to proceed with operative intervention in the form of short cephalomedullary nail. A long discussion was had regarding risks and benefits of procedure. Risks include but are not limited to infection,
blood loss, damage to surrounding structures, persistent pain, loss of function, need for repeat surgery, implant cut out, periprosthetic fracture, DVT/PE and adverse risks of anesthesia. Benefits include early mobilization and fracture
stabilization. After discussion written informed consent was obtained.
OPERATIVE PROCEDURE:
The patient was seen and identified in the preoperative holding area. The operative extremity was marked and all questions were addressed with the patient. Patient was taken to the operating room and provided anesthesia by the anesthesia team.
They were placed supine on a radiolucent fracture table. The nonoperative extremity was placed in a scissored position and well padded to the contralalteral post of the fracture table. Operative extremity was placed in a well-padded fracture boot.
Biplanar fluoroscopy confirmed appropriate reduction after axial traction, adduction and slight internal rotation of the operative extremity. Operative extremity was then prepped and draped in normal sterile fashion. Timeout was performed again
identifying the operative extremity correctly. Preoperative antibiotics were addressed.
A small incision was made several fingerbreadths proximal to the greater trochanter. Sharp dissection was carried through skin and subcutaneous tissues and deep fascial layers. Guidepin was then inserted under biplanar fluoroscopic guidance
through the tip of the greater trochanter in accordance with the implant's operative technique. This was inserted to a depth just distal to the lesser trochanter. Proximal opening reamer was then utilized. A short cephalomedullary nail was then
inserted to the appropriate depth. Trocar was then inserted through the aiming arm. Sharp dissection was then carried through skin and subcutaneous tissues as well as deep fascial layers for an additional stab incision for the cephalomedullary
screw. Guidewire was inserted through the trocar into the femoral neck and head. Appropriate position was confirmed under biplanar fluoroscopy. Attention was made to minimize the tip apex distance. Measurements were obtained for the
cephalomedullary screw. Cannulated drill was then utilized to the appropriate depth followed by the insertion of cannulated cephalomedullary screw. Appropriate final position of the screw within the confines of the femoral neck and head was
confirmed again on biplanar fluoroscopy. Additional trocar was then inserted through the aiming arm for the distal interlocking screw. Sharp dissection was carried through skin, subcutaneous tissues and deep fascial layers. Appropriate length
interlocking screw was then drilled and inserted. Final appropriate positioning was confirmed again on biplanar fluoroscopy. Satisfied with the extent of surgery, wounds were copiously irrigated with normal saline solution and closed in a layered
fashion utilizing 0 Vicryl for deep fascial layer, 2-0 Vicryl for subcu cutaneous layer and ambar for skin. Sterile dressings were applied. Anesthesia was reversed and patient was taken to the operating room in a stable condition.
Postoperative plans include weightbearing of the patient's tolerance operative extremity. Recommend Lovenox renally dosed x 28 days for DVT prophylaxis. Postoperative plans include weightbearing of the patient's tolerance operative extremity. Plan
to see patient back 2 weeks postop
Disposition:
PACU stable condition
[2024-10-03 18:18] LABS: Glucose - Point of Care 188 mg/dl (70-99)
[2024-10-03] MEDS: NOVOLOG FLEXPEN-MODERATE RESISTANCE SC (20:14)
[2024-10-03] MEDS: DESYREL 50 MG PO (21:52)
[2024-10-03] MEDS: SEROQUEL 25 MG PO (21:52)
[2024-10-03] MEDS: COLACE 100 MG PO (21:52)
[2024-10-04] VITALS (8 sets, daily range): BP systolic 110–153; BP diastolic 37–112; PULSE 93–101; O2SAT 96
[2024-10-04] MEDS: ANCEF 5 IV ×2 (00:19→09:11)
[2024-10-04 00:28] LABS: Glucose - Point of Care 241 mg/dl (70-99)
[2024-10-04] MEDS: NOVOLOG FLEXPEN-MODERATE RESISTANCE 3 UNITS SC (00:28)
[2024-10-04] MEDS: SYNTHROID 50 MCG PO (03:57)
[2024-10-04] MEDS: TYLENOL 1000 MG PO ×3 (03:57→21:32)
[2024-10-04] MEDS: NSS 1000 IV ×2 (04:22→21:41)
[2024-10-04] MEDS: ROXICODONE 5 MG PO (04:51)
[2024-10-04 06:26] LABS: Glucose - Point of Care 197 mg/dl (70-99)
[2024-10-04] MEDS: NOVOLOG FLEXPEN-MODERATE RESISTANCE 1 UNITS SC ×2 (06:29→18:32)
[2024-10-04 06:52] LABS: Blood Urea Nitrogen 30 mg/dl (7-17); Calcium 8.2 mg/dl (8.4-10.2); Carbon Dioxide 23 mmol/L (22-30); Chloride 107 mmol/L (98-107); Estimated Creatinine Clearance 28 ml/min; Glucose 187 mg/dl (70-99); Potassium 4.6 mmol/L (3.5-5.1); Sodium 142 mmol/L (135-145); eGFR 41.31
[2024-10-04 07:26] LABS: Hematocrit 22.8 % (37.0-47.0); Hemoglobin 7.4 g/dL (12.0-16.0); Mean Corp Hgb Conc. 32.5 g/dL (33.0-37.0); Mean Corpuscular Hgb 25.2 pg (27.0-31.0); Mean Corpuscular Volume 77.6 fL (81.0-99.0); Mean Platelet Volume 10.6 fL (7.4-10.4); Platelet Count 232 10^3/uL (130-400); Red Blood Cell Count 2.94 10^6/uL (4.20-5.40); Red Cell Dist. Width 14.7 % (11.5-14.5); White Blood Cell Count 13.3 10^3/uL (4.8-10.8)
[2024-10-04] MEDS: LOVENOX 40 MG SC (09:13)
[2024-10-04] MEDS: NORVASC 5 MG PO (09:13)
[2024-10-04] MEDS: PROTONIX 20 MG PO (09:14)
[2024-10-04] MEDS: COLACE 100 MG PO ×2 (09:14→21:32)
[2024-10-04] MEDS: EFFEXOR XR 225 MG PO (09:14)
[2024-10-04] MEDS: DESENEX/MITRAZOL/ZEASORB 1 APPLIC TOPICAL ×2 (09:14→21:33)
[2024-10-04] MEDS: JANUVIA 100 MG PO (09:15)
[2024-10-04 09:34] LABS: Glycohemoglobin (HgbA1c) 8.5 % (4.0-5.6)
[2024-10-04 12:44] LABS: Glucose - Point of Care 256 mg/dl (70-99)
--- NOTE | 2024-10-04 12:47 | CM ---
Patient for SNF at [facility], first available bed Tuesday. NPI for [facility] is [id number]/ physician accepting patient Le Jenkins. Patient will need auth for transfer. CM will continue to follow for discharge planning needs.
Plan; SNF
[2024-10-04] MEDS: NOVOLOG FLEXPEN-MODERATE RESISTANCE 5 UNITS SC (13:03)
[2024-10-04] MEDS: RISPERDAL 0.25 MG PO (17:47)
--- NOTE | 2024-10-04 17:52 | W.PN.ORTHO ---
Today's Communication / Plan
-
79-year-old female postop day 1 status post left short cephalomedullary nail for peritrochanteric femur fracture
Weightbearing as tolerated left lower extremity
PT OT
Pain control
DVT prophylaxis: Recommend renally dosed Lovenox x 20 days
Acute blood loss anemia: Currently receiving 1 unit packed red blood cells, continue to monitor and resuscitate as indicated
Plan to follow-up with myself outpatient in 2 to 3 weeks for repeat evaluation with repeat radiographs.
Subjective
.
.:
Patient eating comfortably in bed. Really unable to comply with history taking. Per nursing, PT did try to work with her but was really unable to do so today.
Vital Signs and Labs
.
Vital Signs and Labs:
Lab Results
10/04/24 05:49
10/04/24 05:49
Temp Pulse Resp BP Pulse Ox
98.4 F 57 16 153/112 95
10/04/24 16:06 10/04/24 16:06 10/04/24 16:06 10/04/24 16:06 10/04/24 16:06
PT 13.3 Sec (11.4-14.6) 10/02/24 08:57
INR 0.98 10/02/24 08:57
Physical Exam
-
Musculoskeletal left lower extremity
Dressing with minimal bloody drainage
Patient spontaneously moving toes
Brisk cap refill distally
Unable to comply with detailed motor or sensory assessment
[2024-10-04 18:31] LABS: Glucose - Point of Care 189 mg/dl (70-99)
[2024-10-04] MEDS: DESYREL 50 MG PO (21:32)
[2024-10-04] MEDS: SEROQUEL 25 MG PO (21:32)
[2024-10-04 23:28] LABS: Glucose - Point of Care 133 mg/dl (70-99)
[2024-10-04] MEDS: NOVOLOG FLEXPEN-MODERATE RESISTANCE SC (23:29)
[2024-10-05] MEDS: ROXICODONE 2.5 MG PO ×3 (03:41→16:08)
[2024-10-05 06:21] LABS: Glucose - Point of Care 102 mg/dl (70-99)
[2024-10-05] MEDS: NOVOLOG FLEXPEN-MODERATE RESISTANCE SC (06:30)
[2024-10-05] MEDS: SYNTHROID 50 MCG PO (06:30)
--- NOTE | 2024-10-05 06:32 | W.PN.UPDATE ---
Update Note
Progress Note Update
RN reports patient with loose stools x 2 overnight. Denies abdomen pain, no fever, will hold off Colace, patient is on Zosyn. If continuos to have loose stool can check for C-diff.
--- NOTE | 2024-10-05 07:05 | W.PN.HOSP.TC ---
Addendum entered and electronically signed by Dia Mejía MD 10/05/24 07:09:
MAXI
Original Note:
Today's Communication/Plan
-
Note of 10/04
Assessment / Plan
Assessment / Plan
Physical Exam
General: No Apparent Distress and Comfortable
HEENT: Moist mucous membranes and Atraumatic
Respiratory: Clear
Cardiac: S1/S2 and Regular Rhythm
GI: Soft and Non Tender
Genito-urinary: No Pepe
Musculoskeletal: No Clubbing, No Cyanosis and No Edema
Skin: No Jaundice
Neuro: Awake and Other (She followed simple commands but unable to provide much history )
Psych: Calm and Apparent Dementia
79 female presented after a fall with left femur fracture
# left Femur fracture
History of mechanical fall
s/p ORIF 10/03
c/w pain control with Tylenol and low dose oral oxycodone for severe pain, family prefers to avoid narcotics
CT head no acute findings
Holding Brilinta
Thrombo guards for now
Appreciate Ortho help ,
# acute blood loss anemia with weakness, dizzy upon standing
will give one unit of blood, consent signed
# Leukocytosis, reactive
# Recurrent major depressive disorder. Continue with venlafaxine, quetiapine and trazodone.
d/w daughter, important to c/w her meds, patient has impulsive behavior
#Ex-smoker
#History of PE.
# Hx loop recorder 2016
#HTN�benign
Avoid hypotension
#HLD
No changes in 10
#DM 2
Will continue with insulin/scale while perioperative/n.p.o. status
#GERD
No history of heartburn
#Constipation hx
-Monitor bowel movements
Other PMH:
fecal incontinence,
renal calculi history of laser lithotripsy ureteroscopy
DVT prophylaxis with Lovenox
CODE STATUS, DNR, confirmed with family
Total time spent to see the patient, examining the patient, review data and lab result, discussed treatment plan with patient around 75 minutes
Anticipated Discharge: 24 - 48 hours
Subjective/Interval History
-
Date of Service: October 04, 2024
Weakness, hypotension
Objective Data
-
Labs:
Laboratory Results
10/05/24
06:21
WBC Pending
Hgb Pending
Hct Pending
Plt Count Pending
Vital Signs:
Vital Signs
Temp Pulse Resp BP Pulse Ox
98.0 F 81 18 124/91 97
10/04/24 23:00 10/04/24 23:00 10/04/24 23:00 10/04/24 23:00 10/04/24 23:00
I&O
10/04/24 10/05/24 10/06/24
06:59 06:59 06:59
Intake Total 960 / 960 300 / 300
Balance 960 / 960 300 / 300
[2024-10-05 07:08] LABS: Hematocrit 23.8 % (37.0-47.0); Hemoglobin 7.9 g/dL (12.0-16.0); Mean Corp Hgb Conc. 33.2 g/dL (33.0-37.0); Mean Corpuscular Hgb 26.9 pg (27.0-31.0); Mean Platelet Volume 10.6 fL (7.4-10.4); Platelet Count 210 10^3/uL (130-400); Red Blood Cell Count 2.94 10^6/uL (4.20-5.40); Red Cell Dist. Width 14.9 % (11.5-14.5); White Blood Cell Count 12.3 10^3/uL (4.8-10.8)
[2024-10-05 07:20] VITALS: BP 146/68
[2024-10-05 08:21] LABS: Blood Urea Nitrogen 25 mg/dl (7-17); Calcium 7.7 mg/dl (8.4-10.2); Carbon Dioxide 27 mmol/L (22-30); Chloride 109 mmol/L (98-107); Estimated Creatinine Clearance 33 ml/min; Glucose 93 mg/dl (70-99); Potassium 3.4 mmol/L (3.5-5.1); Sodium 142 mmol/L (135-145); eGFR 50.48
--- NOTE | 2024-10-05 08:51 | W.PN.HOSP.TC ---
Today's Communication/Plan
-
IV Iron
KCl
PT/OT
Likely dc over the weekend
Assessment / Plan
Assessment / Plan
Physical Exam
General: No Apparent Distress and Comfortable
HEENT: Moist mucous membranes and Atraumatic
Respiratory: Clear
Cardiac: S1/S2 and Regular Rhythm
GI: Soft and Non Tender
Genito-urinary: No Pepe
Musculoskeletal: No Clubbing, No Cyanosis and No Edema
Skin: No Jaundice
Neuro: Awake and Other (She followed simple commands but unable to provide much history )
Psych: Calm and Apparent Dementia
79 female presented after a fall with left femur fracture
# left Femur fracture
History of mechanical fall
s/p ORIF 10/03
c/w pain control with Tylenol and low dose oral oxycodone for severe pain, family prefers to avoid narcotics
CT head no acute findings
Holding Brilinta
Thrombo guards for now
Appreciate Ortho help ,
# acute blood loss anemia with weakness, dizzy upon standing
s/p one unit of blood, consent signed
HGB 7.9, will give IV Iron
# Hypokalemia
replace
# Leukocytosis, reactive
# Recurrent major depressive disorder. Continue with venlafaxine, quetiapine and trazodone.
d/w daughter, important to c/w her meds, patient has impulsive behavior
#Ex-smoker
#History of PE.
# Hx loop recorder 2016
#HTN�benign
Avoid hypotension
#HLD
No changes in 10
#DM 2
Will continue with insulin/scale while perioperative/n.p.o. status
#GERD
No history of heartburn
#Constipation hx
-Monitor bowel movements
Other PMH:
fecal incontinence,
renal calculi history of laser lithotripsy ureteroscopy
DVT prophylaxis with Lovenox
CODE STATUS, DNR, confirmed with family
Total time spent to see the patient, examining the patient, review data and lab result, discussed treatment plan with patient, nursing staff around 55 minutes
Anticipated Discharge: Within 24 hours
Subjective/Interval History
-
Date of Service: October 05, 2024
Doing better
No issues over night
Objective Data
-
Labs:
Laboratory Results
10/05/24
06:21
WBC 12.3 H
Hgb 7.9 L
Hct 23.8 L
Plt Count 210
Sodium 142
Potassium 3.4 L D
Chloride 109 H
Carbon Dioxide 27
BUN 25 H
Creatinine 1.1 H
Glucose 93
Calcium 7.7 L
Vital Signs:
Vital Signs
Temp Pulse Resp BP Pulse Ox
97.7 F 73 16 146/68 95
10/05/24 07:20 10/05/24 07:20 10/05/24 07:20 10/05/24 07:20 10/05/24 07:20
I&O
10/04/24 10/05/24 10/06/24
06:59 06:59 06:59
Intake Total 960 / 960 300 / 300
Balance 960 / 960 300 / 300
[2024-10-05] MEDS: JANUVIA 100 MG PO (08:58)
[2024-10-05] MEDS: NORVASC 5 MG PO (08:58)
[2024-10-05] MEDS: EFFEXOR XR 225 MG PO (08:58)
[2024-10-05] MEDS: PROTONIX 20 MG PO (08:58)
[2024-10-05] MEDS: DESENEX/MITRAZOL/ZEASORB 1 APPLIC TOPICAL ×2 (08:58→21:36)
[2024-10-05] MEDS: LOVENOX 40 MG SC (08:59)
[2024-10-05 11:06] VITALS: BP 100/49; BP 115/56; BP 118/54; BP 120/56; PULSE 84; PULSE 93; PULSE 98; O2SAT 96
[2024-10-05] MEDS: KCL 20 MEQ PO (11:41)
[2024-10-05 11:53] LABS: Glucose - Point of Care 167 mg/dl (70-99)
[2024-10-05] MEDS: NOVOLOG FLEXPEN-MODERATE RESISTANCE 1 UNITS SC (13:10)
[2024-10-05] MEDS: FERRLECIT 110 MG IV (13:12)
--- NOTE | 2024-10-05 15:07 | PTCARENOTE ---
Pt with no BM documented during this admission. Dr Mejía notified and to order bowel regimen. Care remains ongoing.
[2024-10-05 15:30] VITALS: BP 98/58
--- NOTE | 2024-10-05 15:45 | CM ---
CM following re: discharge planning.
Reviewed pt's chart, met with pt and pt's son Kwadwo at bedside.
Pt is postop day 1 status post left short cephalomedullary nail for peritrochanteric femur fracture
Pt reports she moved with her to [facility] independent apartment on 09/07/24, has 2 supportive children. Pt reports she uses a walker with assistance at baseline, uses a wheelchair for a long distance due to stroke in the past.
Both pt and her son are aware that pt will need a short term rehab after the surgery and they requested [facility]. CM spoke to [facility] director of direct marketing and she stated that they do have a policy that in order for admission to [facility] pt must be a resident of [facility] for 30 days and 30 days will be on Tuesday10/07/24. Both pt and her son made a strong request they do want only [facility].
PT and OT evaluations noted - SNF level of care recommended.
A referral to [facility] made.
CM initiated an auth from [employer] for SNF level of care at [facility] for Tuesday10/07/24 , pending reference#: [id number]. Requested pt's clinical faxed to [phone].
Awaiting for an auth.
D/C plan: [facility] for a short term rehab.
CM will follow to assist pt with discharge to [facility].
--- NOTE | 2024-10-05 17:08 | PN.CDI ---
Addendum entered and electronically signed by Dia Mejía MD 10/06/24 06:38:
Traumatic
Original Note:
CDI
- -
CDI:
Physician Documentation Request
Admit Date: 10/02/24 11:39
Dear Doctor Alfonzo,
Patient admitted with left femur fracture. Underwent Insertion Left short cephalomedullary nail.
Patient reports she was on couch and rolled off.
Left hip x-ray showed Comminuted displaced intertrochanteric proximal left femur fracture and diffuse demineralization
Please provide further specificity regarding the diagnosis of fracture:
Etiology
Traumatic
Pathologic due to osteoporosis
Pathologic due to other disease (please specify)
Due to a combination of trauma and a pathological process
but the trauma alone would not likely have been sufficient
to cause the fracture
Use of terms such as suspected, likely, concern for, or probable (associated with a specific diagnosis that is being evaluated, monitored, or treated as if it exists) are acceptable and can be coded in the inpatient setting, when documented at the
time of discharge.
Thank you,
Madison Pickett RN, BSN
CDI Specialist
tiger text
Please use your independent medical judgment in providing your response.
[2024-10-05 17:30] LABS: Glucose - Point of Care 204 mg/dl (70-99)
[2024-10-05] MEDS: NOVOLOG FLEXPEN-MODERATE RESISTANCE 3 UNITS SC (17:43)
[2024-10-05] MEDS: SEROQUEL 25 MG PO (21:39)
[2024-10-05] MEDS: DESYREL 50 MG PO (21:39)
[2024-10-05 21:41] LABS: Glucose - Point of Care 183 mg/dl (70-99)
[2024-10-05 23:08] VITALS: BP 128/58
[2024-10-06] MEDS: SYNTHROID 50 MCG PO (05:11)
[2024-10-06 07:15] VITALS: BP 136/109
[2024-10-06 07:27] LABS: Glucose - Point of Care 94 mg/dl (70-99)
[2024-10-06] MEDS: NOVOLOG FLEXPEN-MODERATE RESISTANCE SC (07:53)
[2024-10-06] MEDS: JANUVIA 100 MG PO (08:52)
[2024-10-06] MEDS: NORVASC 5 MG PO (08:52)
[2024-10-06] MEDS: EFFEXOR XR 225 MG PO (08:52)
[2024-10-06] MEDS: LOVENOX 40 MG SC (08:57)
--- NOTE | 2024-10-06 09:14 | W.PN.HOSP.TC ---
Today's Communication/Plan
-
DC in AM
Blood work in AM
IV Iron
Laxative
Prefer to try Tylenol before oxycodone for pain
Assessment / Plan
Assessment / Plan
Physical Exam
General: No Apparent Distress and Comfortable
HEENT: Moist mucous membranes and Atraumatic
Respiratory: Clear
Cardiac: S1/S2 and Regular Rhythm
GI: Soft and Non Tender
Genito-urinary: No Pepe
Musculoskeletal: No Clubbing, No Cyanosis and No Edema
Skin: No Jaundice
Neuro: Awake and Other (She followed simple commands but unable to provide much history )
Psych: Calm and Apparent Dementia
79 female presented after a fall with left femur fracture
# left Femur fracture
History of mechanical fall
s/p ORIF 10/03
c/w pain control with Tylenol and low dose oral oxycodone for severe pain, family prefers to avoid narcotics
CT head no acute findings
Holding Brilinta
Thrombo guards for now
Appreciate Ortho help ,
# acute blood loss anemia with weakness, dizzy upon standing
s/p one unit of blood, consent signed
HGB 7.9, to c/w 3 doses IV Iron
# Constipation
Will do MiraLAX, add PRN Rectal Dulcolax
# Hypokalemia
replace
# Leukocytosis, reactive
# Recurrent major depressive disorder. Continue with venlafaxine, quetiapine and trazodone.
d/w daughter, important to c/w her meds, patient has impulsive behavior
#Ex-smoker
#History of PE.
# Hx loop recorder 2016
#HTN�benign
Avoid hypotension
#HLD
No changes in 10
#DM 2
Will continue with insulin/scale while perioperative/n.p.o. status
#GERD
No history of heartburn
#Constipation hx
-Monitor bowel movements
Other PMH:
fecal incontinence,
renal calculi history of laser lithotripsy ureteroscopy
DVT prophylaxis with Lovenox
CODE STATUS, DNR, confirmed with family
Total time spent to see the patient, examining the patient, review data and lab result, discussed treatment plan with patient, nursing staff around 55 minutes
Anticipated Discharge: Within 24 hours
Subjective/Interval History
-
Date of Service: October 06, 2024
No chest pain
No sob
Objective Data
-
Vital Signs:
Vital Signs
Temp Pulse Resp BP Pulse Ox
98.7 F 88 18 125/50 93
10/06/24 07:15 10/06/24 08:52 10/06/24 07:15 10/06/24 08:52 10/06/24 09:02
I&O
10/05/24 10/06/24 10/07/24
06:59 06:59 06:59
Intake Total 300 / 300 590 / 590
Balance 300 / 300 590 / 590
[2024-10-06] MEDS: DESENEX/MITRAZOL/ZEASORB 1 APPLIC TOPICAL ×2 (09:49→20:58)
[2024-10-06] MEDS: PROTONIX 20 MG PO (09:49)
[2024-10-06] MEDS: MIRALAX 17 GRAMS PO (09:49)
[2024-10-06 12:28] LABS: Glucose - Point of Care 197 mg/dl (70-99)
[2024-10-06] MEDS: NOVOLOG FLEXPEN-MODERATE RESISTANCE 1 UNITS SC (12:40)
[2024-10-06] MEDS: TYLENOL 1000 MG PO ×2 (12:42→20:58)
[2024-10-06] MEDS: FERRLECIT 110 MG IV (15:31)
[2024-10-06 15:35] VITALS: BP 124/48
[2024-10-06 16:45] LABS: Glucose - Point of Care 205 mg/dl (70-99)
[2024-10-06] MEDS: NOVOLOG FLEXPEN-MODERATE RESISTANCE 2 UNITS SC (17:04)
[2024-10-06] MEDS: DESYREL 50 MG PO (20:58)
[2024-10-06] MEDS: SEROQUEL 25 MG PO (20:58)
[2024-10-06 23:25] VITALS: BP 120/50
[2024-10-07] MEDS: SYNTHROID 50 MCG PO (05:37)
[2024-10-07 08:00] VITALS: BP 134/50
[2024-10-07 08:00] LABS: Hematocrit 24.4 % (37.0-47.0); Hemoglobin 8.2 g/dL (12.0-16.0); Mean Corp Hgb Conc. 33.6 g/dL (33.0-37.0); Mean Corpuscular Hgb 27.5 pg (27.0-31.0); Mean Corpuscular Volume 81.9 fL (81.0-99.0); Mean Platelet Volume 9.7 fL (7.4-10.4); Platelet Count 239 10^3/uL (130-400); Red Blood Cell Count 2.98 10^6/uL (4.20-5.40); Red Cell Dist. Width 15.4 % (11.5-14.5); White Blood Cell Count 9.8 10^3/uL (4.8-10.8)
[2024-10-07 08:21] LABS: Blood Urea Nitrogen 12 mg/dl (7-17); Calcium 8.2 mg/dl (8.4-10.2); Carbon Dioxide 27 mmol/L (22-30); Chloride 108 mmol/L (98-107); Estimated Creatinine Clearance 52 ml/min; Glucose 110 mg/dl (70-99); Potassium 4.1 mmol/L (3.5-5.1); Sodium 140 mmol/L (135-145); eGFR > 60.00
[2024-10-07] MEDS: PROTONIX 20 MG PO (08:37)
[2024-10-07] MEDS: JANUVIA 100 MG PO (08:37)
[2024-10-07] MEDS: NORVASC 5 MG PO (08:37)
[2024-10-07] MEDS: NOVOLOG FLEXPEN-MODERATE RESISTANCE SC (08:37)
[2024-10-07] MEDS: EFFEXOR XR 225 MG PO (08:37)
[2024-10-07] MEDS: LOVENOX 40 MG SC (08:37)
[2024-10-07] MEDS: MIRALAX 17 GRAMS PO (08:38)
[2024-10-07] MEDS: DESENEX/MITRAZOL/ZEASORB 1 APPLIC TOPICAL ×2 (08:43→20:01)
[2024-10-07] MEDS: TYLENOL 1000 MG PO ×3 (09:21→22:07)
--- NOTE | 2024-10-07 10:07 | W.PN.HOSP.TC ---
Today's Communication/Plan
-
dc
Assessment / Plan
Assessment / Plan
Physical Exam
General: No Apparent Distress and Comfortable
HEENT: Moist mucous membranes and Atraumatic
Respiratory: Clear
Cardiac: S1/S2 and Regular Rhythm
GI: Soft and Non Tender
Genito-urinary: No Pepe
Musculoskeletal: No Clubbing, No Cyanosis and No Edema
Skin: No Jaundice
Neuro: Awake and Other (She followed simple commands but unable to provide much history )
Psych: Calm and Apparent Dementia
79 female presented after a fall with left femur fracture
# left Femur fracture
History of mechanical fall
s/p ORIF 10/03
c/w pain control with Tylenol and low dose oral oxycodone for severe pain, family prefers to avoid narcotics
CT head no acute findings
Holding Brilinta
Thrombo guards for now
Appreciate Ortho help ,
# acute blood loss anemia with weakness, dizzy upon standing
s/p one unit of blood, consent signed
HGB 7.9, to c/w 3 doses IV Iron
# Constipation
Daily oral MiraLAX, added PRN Rectal Dulcolax
# Hypokalemia
replaced
# Leukocytosis, reactive and resolved.
# Recurrent major depressive disorder. Continue with venlafaxine, quetiapine and trazodone.
d/w daughter, important to c/w her meds, patient has impulsive behavior
#Ex-smoker
#History of PE.
# Hx loop recorder 2016
#HTN�benign
Avoid hypotension
#HLD
No changes in 10
#DM 2
Will continue with insulin/scale while perioperative/n.p.o. status
#GERD
No history of heartburn
#Constipation hx
-Monitor bowel movements
Other PMH:
fecal incontinence,
renal calculi history of laser lithotripsy ureteroscopy
DVT prophylaxis with Lovenox
CODE STATUS, DNR, confirmed with family
Total time spent to see the patient, examining the patient, review data and lab result, discussed treatment plan with patient, nursing staff around 55 minutes
Anticipated Discharge: Today
Subjective/Interval History
-
Date of Service: October 07, 2024
No worsening confusion
No fever
No chest pain
Objective Data
-
Labs:
Laboratory Results
10/07/24
07:08
WBC 9.8
Hgb 8.2 L
Hct 24.4 L
Plt Count 239
Sodium 140
Potassium 4.1
Chloride 108 H
Carbon Dioxide 27
BUN 12
Creatinine 0.7
Glucose 110 H
Calcium 8.2 L
Vital Signs:
Vital Signs
Temp Pulse Resp BP Pulse Ox
97.9 F 90 16 134/50 95
10/07/24 08:00 10/07/24 08:37 10/07/24 08:00 10/07/24 08:37 10/07/24 08:00
I&O
10/06/24 10/07/24 10/08/24
06:59 06:59 06:59
Intake Total 590 / 590 1260 / 1260
Balance 590 / 590 1260 / 1260
[2024-10-07 12:24] LABS: Glucose - Point of Care 212 mg/dl (70-99)
[2024-10-07 12:24] LABS: Glucose - Point of Care 263 mg/dl (70-99)
[2024-10-07 12:24] LABS: Glucose - Point of Care 135 mg/dl (70-99)
[2024-10-07] MEDS: NOVOLOG FLEXPEN-MODERATE RESISTANCE 3 UNITS SC (12:45)
--- NOTE | 2024-10-07 13:19 | CM ---
Addendum entered by Lorrie Vu 10/07/24 16:04:
Left msg for son Kwadwo to update him on pending auth status : [phone]
Original Note:
CM following re: d/c planning.
Auth remains pending for SNF placement to [facility].
CM will continue to follow and update med team and family.
[2024-10-07] MEDS: FERRLECIT 110 MG IV (14:46)
[2024-10-07 15:48] VITALS: BP 125/56
[2024-10-07 16:47] LABS: Glucose - Point of Care 194 mg/dl (70-99)
[2024-10-07] MEDS: NOVOLOG FLEXPEN-MODERATE RESISTANCE 1 UNITS SC (17:23)
[2024-10-07 21:03] LABS: Glucose - Point of Care 191 mg/dl (70-99)
[2024-10-07] MEDS: SEROQUEL 25 MG PO (22:08)
[2024-10-07] MEDS: DESYREL 50 MG PO (22:08)
[2024-10-07 23:00] VITALS: BP 127/59
[2024-10-08] MEDS: SYNTHROID 50 MCG PO (05:29)
--- NOTE | 2024-10-08 08:31 | CM ---
[employer] Authorization
REference Number
[id number]
10/07/2024-10/11/2024
[2024-10-08 08:46] LABS: Glucose - Point of Care 116 mg/dl (70-99)
[2024-10-08] MEDS: NOVOLOG FLEXPEN-MODERATE RESISTANCE SC (08:47)
[2024-10-08] MEDS: EFFEXOR XR 225 MG PO (08:50)
[2024-10-08] MEDS: JANUVIA 100 MG PO (08:50)
[2024-10-08] MEDS: LOVENOX 40 MG SC (08:51)
[2024-10-08] MEDS: PROTONIX 20 MG PO (08:51)
[2024-10-08] MEDS: MIRALAX 17 GRAMS PO (08:52)
[2024-10-08] MEDS: DESENEX/MITRAZOL/ZEASORB 1 APPLIC TOPICAL (08:52)
[2024-10-08 08:56] VITALS: BP 119/59
[2024-10-08] MEDS: NORVASC 5 MG PO (08:57)
--- NOTE | 2024-10-08 09:22 | CM ---
Addendum entered by Norma Stevens RN 10/08/24 11:03:
CM updated patient's son has been updated with plan for transfer.
Addendum entered by Norma Stevens RN 10/08/24 10:28:
Discharge Plan:
[facility]
[phone]
fax
[phone]
Original Note:
MIKI spoke with Ingrid at [facility].
[2024-10-08 11:08] LABS: COVID-19 Antigen Negative (Negative)
[2024-10-08] MEDS: TYLENOL 1000 MG PO (11:36)
[2024-10-08 12:13] VITALS: BP 136/76
[2024-10-08 12:18] LABS: Glucose - Point of Care 236 mg/dl (70-99)
[2024-10-08] MEDS: NOVOLOG FLEXPEN-MODERATE RESISTANCE 3 UNITS SC (12:22)
--- NOTE | 2024-10-08 16:21 | W.PN.HOSP.TC ---
Today's Communication/Plan
-
Switch to Brilinta. Discontinue Lovenox
Plan for discharge.
Assessment / Plan
Assessment / Plan
Assessment-
79-year-old female with PMHx significant for recurrent MDD, hypertension, hyperlipidemia, NIDDM 2, recurrent major depressive disorder, PE, GERD, constipation, fecal incontinence presents to the hospital s/p mechanical fall diagnosed with left femur
fracture.
Plan-
Left femur fracture-s/p mechanical fall with diagnosis of peritrochanteric femur fracture.
S/p ORIF on 10/03 with short cephalomedullary nail fixation
Optimal pain control with Tylenol and oxycodone
CT head with no acute findings
Held Brilinta and was put on Lovenox
Okay to resume Brilinta beginning today.
Thromboguards for now, currently followed by orthopedics
Appreciate Ortho help.
Acute blood loss anemia upon admission-
Hemoglobin 7.9, s/p 1 unit of blood
To continue with 3 doses of IV iron.
Essential hypertension-continue home medication amlodipine 5 mg
Avoid orthostatic hypotension
Hyperlipidemia
Continue high intensity statin and ezetimibe
Leukocytosis-reactive and resolved
Hypokalemia-replaced, no labs today as planning to discharge in a stable condition
Constipation-currently on as needed bowel regimen
Recurrent major depressive disorder
Continue with venlafaxine, quetiapine and trazodone.
Type 2 diabetes mellitus-
Continue with sliding scale insulin regimen
DVT prophylaxis-
Lovenox
CODE STATUS-
DNR..
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
Fecal incontinence
Nephrolithiasis s/p laser lithotripsy, ureteroscopy
Ex-smoker
History of PE
GERD-currently not symptomatic.
Anticipated Discharge: Today
Subjective/Interval History
-
Date of Service: October 08, 2024
Pleasant demented female nonverbal.
Objective Data
-
Vital Signs:
Vital Signs
Temp Pulse Resp BP Pulse Ox
98.2 F 88 18 136/76 97
10/08/24 12:13 10/08/24 12:13 10/08/24 12:13 10/08/24 12:13 10/08/24 12:13
I&O
10/07/24 10/08/24 10/09/24
06:59 06:59 06:59
Intake Total 1260 / 1260 1560 / 1560 120 / 120
Balance 1260 / 1260 1560 / 1560 120 / 120
Review of Systems
-
Unable to obtain full review of systems at this time due to: Dementia
Physical Exam
-
General: No Apparent Distress and Comfortable
HEENT: Moist Mucous Membranes
Respiratory: Clear to Auscultation; Negative Wheezes, Rales or Rhonchi (Across all lung lobes)
Cardiac: Regular Rhythm and S1/S2; Negative Murmur, Rub or Gallop
GI: Soft, Nontender, Nondistended and Normal Bowel Sounds
Musculoskeletal: No Clubbing, No Cyanosis and No Edema
Skin: Warm
Neuro: AO x 3 and No Motor Deficits
Psych: Calm
--- NOTE | 2024-10-08 16:35 | W.DCSUMMARY ---
Discharge Summary
Discharge Data
Date of Admission: 10/02/24
Date of Discharge: 10/08/24
-
Pending Results: No
Hospital Course
Impression-
79-year-old female with PMHx significant for recurrent MDD, hypertension, hyperlipidemia, NIDDM 2, recurrent major depressive disorder, PE, GERD, constipation, fecal incontinence presents to the hospital s/p mechanical fall diagnosed with left femur
fracture.
Hospital course-
During patient's 4-day hospital course, her peritrochanteric left femur fracture is treated with ORIF with short cephalomedullary nail fixation on 10/03 and she received optimal pain control with Tylenol and oxycodone. CT head showed no acute
intracranial bleed. Patient was also found to have acute blood loss anemia with a hemoglobin of 7.9 on Brilinta and was given 1 unit of PRBC transfusion. Patient tolerated the transfusion well before surgery. Her Brilinta was held given her acute
bleed/blood loss anemia. Her Brilinta was resumed upon discharge after consulting with orthopedics, and is cleared by orthopedics. Her rest of her medical conditions at home were treated with home medications.
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
Fecal incontinence
Nephrolithiasis s/p laser lithotripsy, ureteroscopy
Ex-smoker
History of PE
GERD-currently not symptomatic.
Hip x-ray-10/02/2024-
Comminuted displaced intertrochanteric proximal left femur fracture with varus angulation. No intra-articular extension or dislocation.
Femur [id number] of intertrochanteric proximal left femur fracture remainder of left femur is grossly intact
Discharge Plan
-
Patient Disposition: Detention/SNF
Discharge Diagnosis/Procedures: left femur fracture s/p reduction with gamma nail fixation
Condition: Fair
Diet: No restrictions and As tolerated
Activity: With assistance and As tolerated
Driving Restrictions: As prior to admission
Bathing Restrictions: None
Other Services: PT and OT
Referrals:
Kenny Turner MD [Family Provider] -
Prescriptions:
New
oxycodone 5 mg tablet
5 mg PO Q6H PRN (Reason: Pain) 3 Days Qty: 12 0RF
Continued
quetiapine [Seroquel] 25 mg Tablet
25 mg PO HS
trazodone 50 MG tablet
50 mg PO HS
ticagrelor [Brilinta] 90 mg tablet
90 mg PO BID
glimepiride 1 mg Tablet
2 mg PO BID
levothyroxine 50 mcg tablet
50 mcg PO DAILY
amlodipine 5 mg Tablet
5 mg PO DAILY Qty: 90 0RF
pantoprazole 20 mg Tablet,Delayed Release (Dr/Ec)
20 mg PO DAILY 30 Days Qty: 30 0RF
cholecalciferol (vitamin D3) 50 mcg (2,000 unit) Tablet
50 mcg PO DAILY 30 Days Qty: 30 0RF
atorvastatin 80 mg Tablet
80 mg PO QPM 30 Days Qty: 30 0RF
venlafaxine 75 MG capsule,extended release 24hr
225 mg PO DAILY Qty: 90 0RF
ezetimibe 10 mg Tablet
10 mg PO HS 30 Days Qty: 30 0RF
Januvia 100 mg Tablet
100 mg PO DAILY 30 Days Qty: 30 0RF
Discharge Orders:
Discharge Patient (As Directed); Ordered 10/07/24
Ordered By: Dia Mejía
Discharge Date and Time
Discharge Date/Time: 10/08/24 13:40
Print Language: MACANESE
== END 2024-10-08 13:40 | DRG 481 ==
LOC: 2 SOUTH 11:39
PROVIDERS: Nurse Practitioner Gerontology; Student in an Organized Health Care Education/Training Program; ADMITTING PHYSICIAN Internal Medicine; ATTENDING PHYSICIAN Hospitalist; CONSULT PHYSICIAN Orthopaedic Surgery; EMERGENCY PHYSICIAN Emergency Medicine; FAMILY PHYSICIAN Family Medicine
PROC: 0QS706Z Reposition Left Upper Femur with Intramedullary Internal Fixation Device, Open Approach (ICD-10-PCS; 2024-10-03)
PROC: 30233N1 Transfusion of Nonautologous Red Blood Cells into Peripheral Vein, Percutaneous Approach (ICD-10-PCS; 2024-10-04)
DX: S72.142A Displaced intertrochanteric fracture of left femur, initial encounter for closed fracture (principal); D62 Acute posthemorrhagic anemia; F03.93 Unspecified dementia, unspecified severity, with mood disturbance; F03.94 Unspecified dementia, unspecified severity, with anxiety; F33.9 Major depressive disorder, recurrent, unspecified; N17.9 Acute kidney failure, unspecified; K21.9 Gastro-esophageal reflux disease without esophagitis; W08.XXXA Fall from other furniture, initial encounter; Y93.89 Activity, other specified; Y92.098 Other place in other non-institutional residence as the place of occurrence of the external cause; E78.00 Pure hypercholesterolemia, unspecified; R45.87 Impulsiveness; E03.9 Hypothyroidism, unspecified; D72.829 Elevated white blood cell count, unspecified; I10 Essential (primary) hypertension; E87.6 Hypokalemia; E11.9 Type 2 diabetes mellitus without complications; K59.00 Constipation, unspecified; Z96.653 Presence of artificial knee joint, bilateral; Z96.611 Presence of right artificial shoulder joint; Z66 Do not resuscitate; Z87.891 Personal history of nicotine dependence; Z90.49 Acquired absence of other specified parts of digestive tract; Z80.8 Family history of malignant neoplasm of other organs or systems; Z82.5 Family history of asthma and other chronic lower respiratory diseases; Z86.73 Personal history of transient ischemic attack (TIA), and cerebral infarction without residual deficits; Z79.890 Hormone replacement therapy; Z79.84 Long term (current) use of oral hypoglycemic drugs; Z86.711 Personal history of pulmonary embolism; Z87.442 Personal history of urinary calculi; Z79.02 Long term (current) use of antithrombotics/antiplatelets; Z11.52 Encounter for screening for COVID-19
CPT/HCPCS: 70450; 73502; 73552; 76000; 80048; 80053; 82962; 83036; 85025; 85027; 85610; 85730; 86850; 86900; 86901; 86920; 87070; 87811; 93005; 96374; 96375; 96376; 97110; 97162; 97163; 97167; 97530; 97535; 99285; C1713; J2916; P9016

== ENCOUNTER 2024-11-23 16:54 | Inpatient (IN) | payer OTHER, SELFPAY ==
[2024-11-23] VITALS (12 sets, daily range): BP systolic 103–138; BP diastolic 65–98; BMI 26.5; BMI 25.7; BMI 26.4
--- NOTE | 2024-11-23 14:33 | ED.CVA ---
History of Present Illness
General
Chief Complaint: CVA/TIA Symptoms
Source: family and ambulance crew
Exam Limitations: dementia
Time Seen by Provider: 11/23/24 14:07
Onset of Stroke Symptoms
Onset of symptoms known: Yes
Date of onset of symptoms: 11/23/24
Time of onset of symptoms: 13:00
History of Present Illness
History of Present Illness:
79-year-old female in her baseline dementia state of health was eating lunch, when a sudden mental status change. Was holding her right arm out. Left eye gaze. History of CVA. On Brilinta.
Past History
Past History
ED Past Medical History: CVA, Hypercholesterolemia, NIDDM (Controlled by Diet) and Other (Fecal incontinence)
ED Past Surgical History: Appendectomy, Cholecystectomy, Orthopedic (Bilateral knee replacements, right shoulder replacement) and Other (Cataracts)
Social History
Tobacco: Former smoker
Alcohol: None
Drug: None
Personal:
Living: with family
Employment: Retired
Family History
Family History: Other (Mother with COPD father of brain cancer )
Review of Systems
Review of Systems
Unable to obtain full review of systems at this time due to: due to acuity
All Other Systems: Not applicable
Phy Exam
Physical Exam
Physical Exam:
GENERAL: Patient is not alert. Eyes open. Left side gaze preference. Will move the left arm. Flaccid right arm. Will wiggle toes but not to command. No sign of head trauma
EYE: Orbits normal.
NECK: Supple, no significant adenopathy.
ENT: Pharynx without erythema
CARDIAC: Regular rate and rhythm without any obvious murmurs.
LUNGS: Clear breath sounds,normal
ABDOMEN: Soft, without focal tenderness or distention
NEUROLOGICAL: Essentially unresponsive. No response to pain. Will grunt at times. Moving air. Corneal reflexes intact. Left eye gaze. Flaccid right arm.
SKIN: Warm and dry, no rash or lesion, no discoloration, skin intact.
MUSCULOSKELETAL: No edema,no deformity.Good color
Course
Orders/Labs/Results
Orders:
Orders
11/23/24 14:06
CT HEAD STROKE ALERT W/o Cont Stat
Comment:
Reason For Exam: cva
11/23/24 14:22
Lorazepam [Ativan] See Dose Instructions .ROUTE .STK-MED ONE
11/23/24 14:23
Basic Metabolic Panel Urgent
CBC/With Diff [Complete Blood Count/With Diff] Urgent
Prothrombin Time Urgent
Troponin I Urgent
11/23/24 14:28
Ketamine [Ketalar] 48 mg IV NOW STA
11/23/24 14:29
Ketamine [Ketalar] 200 mg .ROUTE .STK-MED ONE
11/23/24 14:43
Levetiracetam Injectable [Keppra] 3,500 mg IV NOW STA
11/23/24 14:58
Case Management Consult ONCE
Case Management Consult: Hospice
Hospice: Evaluation and treat
11/23/24 16:26
Admit/Transfer Patient As Directed
Co-Sign Provider:
Level of Care: Inpatient admission
Assign to:: Telemetry
Physician / Group: [email or web address]
Diagnosis: status epilepticus
Reason for Telemetry: Other
Other Reason for Telemetry: status epilepticus , suspeted brain tumor
Date to Stop Telemetry: 11/25/24
Time to Stop Telemetry: 11:00
Reason for Hospitalization: status epilepticus , suspected brain tumor
Expected length of stay greater than two midnights?: Yes
ELOS- Estimated Length of Stay in days: 3
I certify the patient meets the requirements for IP care: Yes
11/23/24 16:29
Code Status As Directed
Resuscitation Status: Full Code
11/23/24 16:31
Code Status As Directed
Resuscitation Status: Do not resuscitate
Limited DNR: -No intubation
Reached after discussion with pt or family/Healthcare POA: Yes
DNR Bracelet Application ONCE
11/23/24 16:45
Code Status As Directed
Resuscitation Status: Do not resuscitate
Reached after discussion with pt or family/Healthcare POA: Yes
Decision communicated with: and daughters
DNR Bracelet Application ONCE
11/23/24 17:32
Bisacodyl [Dulcolax] 10 mg RECTAL [id number] PRN
Docusate W/Senna [Senokot-S] 1 tablet PO BIDPRN PRN
Lorazepam [Ativan] 1 mg IV Q4HPRN PRN
Oxycodone [Roxicodone] 5 mg PO Q6H PRN Pain
Polyethylene Glycol Powder [Miralax] 17 grams PO DAILYPRN PRN
11/23/24 17:32
Case Management Consult ONCE
Case Management Consult: Hospice
Hospice: Evaluation and treat
Activity As Directed
Activity Level: With Assistance
Pneumatic Compression Sleeves As Directed
Type: Knee high
Vital Signs As Directed
Frequency: Per unit guidelines
Speech screening from Nursing [Speech Screening from [facility]] Routine
DX Deep Vein Thrombosis Video Routine
11/23/24 20:00
Levetiracetam Injectable [Keppra] 1,000 mg IV Q12
Ticagrelor [Brilinta] 90 mg PO BID
11/23/24 22:00
Trazodone [Desyrel] 50 mg PO HS
11/24/24 06:00
Levothyroxine [Synthroid] 50 mcg PO DAILY@0600
11/24/24 07:34
Basic Metabolic Panel IN AM
Complete Blood Count/No Diff IN AM
11/24/24 08:00
Amlodipine [Norvasc] 5 mg PO DAILY
Venlafaxine Extended Release [Effexor Xr] 225 mg PO DAILY
11/25/24 11:00
DC Protocol for Telemetry ONCE
Abnormal Lab Results
11/23/24
14:23
WBC 11.7 H 10^3/uL
(4.8-10.8)
RBC 4.18 L 10^6/uL
(4.20-5.40)
Hgb 11.4 L g/dL
(12.0-16.0)
Hct 34.8 L %
(37.0-47.0)
MCHC 32.8 L g/dL
(33.0-37.0)
RDW 15.3 H %
(11.5-14.5)
Abs Immat Gran (auto) 0.1 H 10^3/uL
(0-0.05)
Absolute Neuts (auto) 8.5 H 10^3/uL
(1.4-6.5)
Lymphocytes % 19.1 L %
(20.5-51.1)
Glucose 196 H mg/dl
(70-99)
11/23/24 14:23
11/23/24 14:23
Vital Signs
Initial and Last Documented VS:
Initial Vital Signs
Pulse BP Pulse Ox
80 116/98 98
11/23/24 14:08 11/23/24 14:08 11/23/24 14:08
Last Documented Vital Signs
Temp Pulse Resp BP Pulse Ox
97.7 F 95 17 136/70 95
11/24/24 07:40 11/24/24 07:40 11/24/24 03:07 11/24/24 07:40 11/24/24 07:40
MDM/Problems Addressed
Differential Diagnosis Includes:
Stroke alert prehospital. Symptoms apparently came on suddenly at 1:00. Patient was in CT with initial exam. Daughter was brought back to discuss. Significant dementia. Significant medical issues. Poor quality of life. Seizure versus syncope.
Neurology involved immediately. Answered lengthy discussion with family they would like her has hospice. For care.
*Pulse Oximetry
SaO2: 98
Oxygen Mode of Delivery: Room air
Patient hypoxic: no
*Director Of Home Care Hospice Interpretation
Rate: normal
Interpretation: normal
Heart Rate: 88
Rhythm: sinus
*Critical Care Note
Total Time (30-74mins, 75-104mins- exclusive of procedures): 40
Data Reviewed
Review of Other/Old Records Reveals: Labs, Records, Radiology Studies and Testing
ED Attending Note
-
Portions of this chart may have been created with voice recognition software.� Occasional wrong word or��sound alike� substitutions may have occurred due to the inherent limitations of voice recognition software.
Discharge Plan
Departure
Patient Disposition: Admit
Date of Disposition: 11/23/24
Time of Disposition: 15:59
Presentation/result/management discussed w/ accepting MD/DO: Neurology
Discharge Problem:
CVA versus seizure, History of dementia
Interventions
Interventions:
*Risk Screen - Suicide Last Done: 11/23/24 17:27
*General Assessment Last Done: 11/23/24 17:27
*Neglect/Abuse Screening Last Done: 11/23/24 17:27
*ED- Fall Risk Assessment Last Done: 11/23/24 17:27
*ED COVID-19 Vaccine History Last Done: 11/23/24 17:27
*Nursing Disposition Last Done: 11/23/24 17:27
ED- Pulmonary Assessment Last Done: 11/23/24 14:36
ED- Neurological Assessment Last Done: 11/23/24 14:36
ED- Cardiac Assessment Last Done: 11/23/24 14:36
ED Swallowing Screen Last Done: 11/23/24 14:24
Discharge Date and Time
Discharge Date/Time: 11/23/24 17:29
[2024-11-23 14:34] LABS: Hematocrit 34.8 % (37.0-47.0); Hemoglobin 11.4 g/dL (12.0-16.0); Mean Corp Hgb Conc. 32.8 g/dL (33.0-37.0); Mean Corpuscular Volume 83.3 fL (81.0-99.0); Nucleated Red Blood Cells % 0 %; Platelet Count 329 10^3/uL (130-400); Red Cell Dist. Width 15.3 % (11.5-14.5)
--- NOTE | 2024-11-23 14:34 | CON.NEURO ---
Neuro Assessment/Plan
Assessment
status epilepticus, stage I (intermittent seizures)
spoke with and dtr, strong suspicion for right sided brain tumor given ~1 week progressive rt arm weakness, now with status epilepticus
decision for hospice level of care, no further workup
load Keppra 3500 (~60/kg) then start 1000 BID
Discharge with Keppra 1000 BID
if she ends up needing a drip, I would choose ketamine starting at ~0.2 mg/kg/hr given antiepilepic, slight respiratory stimulation, antidepressant and analgesic effects
Consultation
Order
Date of Consultation: 11/23/24
Requesting Provider: Satnam Juarez
Reason for Consult: stroke alert
Subjective/Objective
Subjective Data
Date of Service: November 23, 2024
seen during stroke alert onset 1pm, L head turn, left gaze deviation unresponsive
I saw her in CT scan table patient awake, told me she's 74 years old.
spoke with dtr patient from [place] with dementia but active and conversant. she has had a difficult 4 years declining, DNR, DNI, no feeding tube. 1 week of progressive left arm weakness.
upon return to room, patient seizing again, and at 2:35 I instructed giving Ketamine which was gotten but the seizure aborted spontaneously before I could give it, so I planned to load Keppra 3500 (~60/kg)
Objective Data
Vital Signs
Temp Pulse Resp BP Pulse Ox
36.1 C L 86 15 118/75 98
11/23/24 14:24 11/23/24 14:22 11/23/24 14:22 11/23/24 14:15 11/23/24 14:15
Lab Results
11/23/24 14:23
Patient Allergies
No Known Allergies Allergy (Verified 02/20/24 16:52)
Physical Exam
-
when seizing, patient left gaze deviation, left version
Medications
-
Home Medications
�Medication �Instructions �Recorded
amlodipine 5 mg tablet 5 mg PO DAILY #90 tabs 04/22/22
quetiapine 25 mg tablet (Seroquel) 25 mg PO HS Mental Health/Anxiety 01/23/24
trazodone 50 mg tablet 50 mg PO HS Sleep 01/23/24
ticagrelor 90 mg tablet (Brilinta) 90 mg PO BID Blood Clot 01/24/24
Prevention/Tx
atorvastatin 80 mg tablet 80 mg PO QPM High Cholesterol 30 02/06/24
days #30 tabs
cholecalciferol (vitamin D3) 50 50 mcg PO DAILY Supplement 30 days 02/06/24
mcg (2,000 unit) tablet #30 tabs
ezetimibe 10 mg tablet 10 mg PO HS cholesterol 30 days 02/06/24
#30 tabs
pantoprazole 20 mg tablet,delayed 20 mg PO DAILY gerd 30 days #30 02/06/24
release tabs
venlafaxine 75 mg capsule,extended 225 mg (3 x 75 mg) PO DAILY Mental 02/06/24
release 24 hr Health/Anxiety #90 caps
sitagliptin phosphate 100 mg 100 mg PO DAILY Diabetes 30 days 06/07/24
tablet (Januvia) #30 tabs
glimepiride 1 mg tablet 2 mg PO BID Diabetes 07/09/24
levothyroxine 50 mcg tablet 50 mcg PO DAILY hypothyroid 10/02/24
oxycodone 5 mg tablet 5 mg PO Q6H PRN Pain 3 days #12 10/08/24
tabs
[2024-11-23 14:43] LABS: INR 1.00; PT 13.5 Sec (11.4-14.6)
--- NOTE | 2024-11-23 14:50 | PHANOTE ---
med rec note- called correction for missing paperwork. unable to find in dher
[2024-11-23 14:59] LABS: Blood Urea Nitrogen 13 mg/dl (7-17); Calcium 8.7 mg/dl (8.4-10.2); Carbon Dioxide 23 mmol/L (22-30); Chloride 107 mmol/L (98-107); Estimated Creatinine Clearance 42 ml/min; Glucose 196 mg/dl (70-99); Sodium 138 mmol/L (135-145); eGFR > 60.00
[2024-11-23] MEDS: KEPPRA 3500 MG IV (15:03)
[2024-11-23 15:06] LABS: Troponin I < 0.012 ng/ml
--- NOTE | 2024-11-23 15:44 | CM ---
Addendum entered by Greg De Leon 11/23/24 16:04:
CM spoke to hospice physician Diane and a plan is to admit the pt for comfort care and hospice physician will re-evaluate the pt tomorrow for possible inpatient hospice level of care
Original Note:
CM following re: discharge planning.
CM consulted to arrange hospice referral.
Reviewed pt's chart, met with pt. Pt's and daughter Evette at bedside.
Pt is an 79 year old female, arrived to ED with primary concerns of CVA/TIA symptoms
Pt is not a great historian, information obtained from pt's and daughter. Pt is a snf care resident at [facility] level of care, has 2 supportive children. Pt's family requested hospice care. Hospice vendor choices
provided, family preferred hospice. A referral to hospice made, spoke to hospice physician Diane and she will evaluate the pt.
D/C plan: hospice care with hospice: inpatient hospice or home hospice at [facility].
CM will follow with discharge plan updates as hospitalization progresses
--- NOTE | 2024-11-23 16:06 | HPS.HSE ---
Family Physician
-
Family Physician: Kenny Turner
Chief Complaint
-
sudden mental status change
History of Present Illness
HPI
79F [place] Res, with Dementia, HX CVA, hypertension, hyperlipidemia, NIDDM 2, recurrent major depressive disorder, PE, GERD, constipation, fecal incontinence seen at ER:
- at [place], she was baseline dementia state of health , then while she was eating lunch,noted sudden mental status change. - she was holding her right arm out. Left eye gaze.
- HX CVA. On Brilinta.
- 1 week of progressive left arm weakness.
- witnessed Sz at ER
- was not given, as the seizure aborted spontaneously before Ketamine was given
- ER loaded Keppra 3500 (~60/kg)
Medical History
Past Medical History
Past Medical History: Reports CVA (multiple ), Dementia (advanced ), GERD, HTN and Hypercholesterolemia
Past Surgical History: Reports Other (No recent majoy surgery )
Social History
Unable to obtain full social history at this time due to: Dementia
Tobacco: Non-smoker
Alcohol: None
Drug: None
Personal:
Living: With Family
Family History
Family History: Not pertinent
Allergies / Home Medications
Allergies reflects when Allergies were last updated in [email or web address].
Home Medications with original date entered in [email or web address]
Allergy/Medication List:
Allergies
Allergy/AdvReac Type Severity Reaction Status Date / Time
No Known Allergies Allergy Verified 02/20/24 16:52
Home Medications
amlodipine 5 mg tablet 5 mg PO DAILY #90 tabs 04/22/22
quetiapine 25 mg tablet (Seroquel) 25 mg PO HS Mental Health/Anxiety 01/23/24
trazodone 50 mg tablet 50 mg PO HS Sleep 01/23/24
ticagrelor 90 mg tablet (Brilinta) 90 mg PO BID Blood Clot Prevention/Tx 01/24/24
atorvastatin 80 mg tablet 80 mg PO QPM High Cholesterol 30 days #30 tabs 02/06/24
cholecalciferol (vitamin D3) 50 mcg (2,000 unit) tablet 50 mcg PO DAILY Supplement 30 days #30 tabs 02/06/24
ezetimibe 10 mg tablet 10 mg PO HS cholesterol 30 days #30 tabs 02/06/24
pantoprazole 20 mg tablet,delayed release 20 mg PO DAILY gerd 30 days #30 tabs 02/06/24
venlafaxine 75 mg capsule,extended release 24 hr 225 mg (3 x 75 mg) PO DAILY Mental Health/Anxiety #90 caps 02/06/24
sitagliptin phosphate 100 mg tablet (Januvia) 100 mg PO DAILY Diabetes 30 days #30 tabs 06/07/24
glimepiride 1 mg tablet 2 mg PO BID 07/09/24
levothyroxine 50 mcg tablet 50 mcg PO DAILY hypothyroid 10/02/24
Review of Systems
-
Unable to obtain full review of systems at this time due to: Dementia
Physical Exam
Vital Signs
Vital Signs
Temp Pulse Resp BP Pulse Ox
96.9 F L 88 18 125/94 98
11/23/24 14:24 11/23/24 15:00 11/23/24 15:00 11/23/24 15:00 11/23/24 14:35
Physical Exam
General: Other (obtunded ); No Conversant
HEENT: NormoCephalic and Atraumatic
Respiratory: Clear
Cardiac: S1/S2 and Regular Rhythm
Neuro: Other (Lt lateral gaze ); No Awake
Psych: Other (obtunted )
Laboratory Results
-
11/23/24 14:23
11/23/24 14:23
Laboratory Results
PT 13.5 Sec (11.4-14.6) 11/23/24 14:23
INR 1.00 11/23/24 14:23
Total Bilirubin Cancelled 11/23/24 14:23
AST Cancelled 11/23/24 14:23
ALT Cancelled 11/23/24 14:23
Alkaline Phosphatase Cancelled 11/23/24 14:23
Troponin I < 0.012 ng/ml 11/23/24 14:23
Impression/Plan
-
Significant VSS
11/23/24
14:15 11/23/24
14:22 11/23/24
14:24
Temp 96.9 F L
Temp route: Axillary
Pulse 85
Resp Rate 31
Blood pressure 112/73
SaO2 98
Oxygen Mode of Delivery Room air
Significant admission labs
10/07/24 11/23/24
07:08 14:23
WBC 11.7 H
Hgb 8.2 L 11.4 L
Plt Count 239 329
Potassium
Creatinine 0.8
eGFR > 60.00
Troponin I < 0.012
HCT
No evidence of acute intracranial abnormality.
Last hospitalist admission: 10/02/24 - 10/08/24- Discharge Diagnosis/Procedures: left femur fracture s/p reduction with gamma nail fixation
ASSESSMENT & PLAN
Pending Rx reconciliation
HX advanced dementia
- Family decided for hospice care - CRM consulted
Status epilepticus with intermittent seizures per Neuro consult evalaution
- per Neuro d/w with and dtr, strong suspicion for right sided brain tumor given ~1 week progressive rt arm weakness, now with status epilepticus
- family opted for hospice level of care and no further workup
- s/p load Keppra 3500 (~60/kg) at ER then start 1000 BID
- if she ends up needing a drip, Neuro suggests ketamine starting at ~0.2 mg/kg/hr given antiepilepic
Essential HTN
- Avoid hypotension
HLD
HX CVA
- on hi intensity statin
DM 2
- avoid tight BG control - allow permissive hyperglycemia up to 160-180
- ISS low
- Hold of ADMINISTRATION ASSISTANT PO hypoglycemia ic agents
Constipation HX
- Monitor bowel movements
Recurrent major depressive disorder.
HX impulsive behavior
- Continue with venlafaxine, quetiapine and trazodone.
HX PE.
HX loop recorder 2016
Other PMH:
fecal incontinence,
renal calculi history of laser lithotripsy ureteroscopy
DVT Px: SCD
DNR per famiy
IP TLM
--- NOTE | 2024-11-23 16:12 | HOSPNOTE ---
"Hospice referral recieved. Reviewed records, patient is not gip level of care at this time. Recommended to place on comfort measures and to admit to [address]. Will reevaluate tomorrow morning for inpatient hospice eligibility. Spoke to daughter "Dakota"Evette who is in agreement with this plan. CM and Attending updated and in agreement as well. "
[2024-11-23] MEDS: ATIVAN IV (17:59)
[2024-11-23] MEDS: NSS (PRESERVATIVE FREE) 0.5 ML IV (18:00)
[2024-11-23] MEDS: ATIVAN 1 MG IV (18:07)
--- NOTE | 2024-11-23 18:35 | PTCARENOTE ---
Received pt from ED, pulled over to bed. Pt holding R arm straight out w/ rigidity, eyes open, gaze fixed to the left. Nonverbal. Appearing agitated. 1mg IV Ativan given w/ good result. Family at bedside. POC discussed. VSS.
[2024-11-23] MEDS: KEPPRA 1000 MG IV (20:35)
[2024-11-24] MEDS: ATIVAN 1 MG IV ×2 (01:15→09:23)
[2024-11-24] MEDS: NSS (PRESERVATIVE FREE) 0.5 ML IV ×2 (01:15→09:24)
[2024-11-24 03:07] VITALS: BP 134/64
[2024-11-24 07:40] VITALS: BP 136/70
[2024-11-24 07:57] LABS: Hematocrit 35.6 % (37.0-47.0); Hemoglobin 11.5 g/dL (12.0-16.0); Mean Corp Hgb Conc. 32.3 g/dL (33.0-37.0); Mean Corpuscular Volume 83.8 fL (81.0-99.0); Platelet Count 323 10^3/uL (130-400); Red Cell Dist. Width 15.1 % (11.5-14.5)
[2024-11-24] MEDS: KEPPRA 1000 MG IV (08:01)
[2024-11-24 08:09] LABS: Blood Urea Nitrogen 11 mg/dl (7-17); Calcium 9.0 mg/dl (8.4-10.2); Carbon Dioxide 25 mmol/L (22-30); Chloride 111 mmol/L (98-107); Estimated Creatinine Clearance 63 ml/min; Glucose 72 mg/dl (70-99); Potassium 3.8 mmol/L (3.5-5.1); Sodium 142 mmol/L (135-145); eGFR > 60.00
--- NOTE | 2024-11-24 08:11 | W.PN.HOSP.TC ---
Today's Communication/Plan
-
Restless, appears to be in discomfort
Start Morphine Drip -- discussed this with patient's family and they would like Morphine Drip and Comfort Care started as well
Assessment / Plan
Assessment / Plan
Physical Exam
General: Other (obtunded ); Not conversant
HEENT: Normocephalic and Atraumatic
Respiratory: Decreased breath sounds bilaterally; using accessory muscles
Cardiac: S1/S2 and Regular Rhythm
Neuro: Lethargic
Psych: Other (obtunded)
Assessment/Plan
79 y/o female skilled nursing resident, with history of end stage dementia, CVAs, hypertension, hyperlipidemia, NIDDM 2, recurrent major depressive disorder, PE, GERD, constipation and fecal incontinence who presented with encephalopathy and seizure.
Neurology was suspecting a brain tumor. She received Keppra seizure medications. Patient's family clearly stated they want comfort care/hospice for the patient. Hospice team was consulted.
Status epilepticus
Strong suspicion for right sided brain tumor given ~1 week progressive rt arm weakness
Essential Hypertension
Hyperlipidemia
History of CVA
Type 2 Diabetes Mellitus
Constipation
Recurrent major depressive disorder
History of impulsive behavior
History of Pulmonary Embolism
History of loop recorder in 2017
Fecal incontinence
Renal calculi history of laser lithotripsy ureteroscopy
-Start comfort care measures and Morphine Drip, as per patient's family's request -- I confirmed this with family today
Anticipated Discharge: > 48 hours
Subjective/Interval History
-
Date of Service: November 24, 2024
Patient was seen and examined. She was restless and per patient, in discomfort this morning.
Objective Data
-
Labs:
Laboratory Results
11/24/24
07:34
WBC 12.1 H
Hgb 11.5 L
Hct 35.6 L
Plt Count 323
Sodium 142
Potassium 3.8
Chloride 111 H
Carbon Dioxide 25
BUN 11
Creatinine 0.6
Glucose 72
Calcium 9.0
Vital Signs:
Vital Signs
Temp Pulse Resp BP Pulse Ox
97.7 F 95 17 134/64 96
11/24/24 03:07 11/24/24 03:07 11/24/24 03:07 11/24/24 03:07 11/24/24 03:07
I&O
11/23/24 11/24/24 11/25/24
06:59 06:59 06:59
Intake Total 240 / 240
Output Total 250 / 250
Balance -10 / -10
[2024-11-24] MEDS: MORPHINE SULFATE 2 MG IV (11:12)
--- NOTE | 2024-11-24 11:50 | W.DCSUMMARY ---
Addendum entered and electronically signed by Kael Salazar MD 11/24/24 12:02:
Correction to the Hospital Course:
79-year-old female with past medical history significant for end stage dementia, CVAs, recent left femur fracture status post cephalomedullary nail fixation, anemia, recurrent MDD, hypertension, hyperlipidemia, NIDDM 2, recurrent major depressive
disorder, Pulmonary Embolism, GERD, constipation, nephrolithiasis status post laser lithotripsy and ureteroscopy, and fecal incontinence presented to the hospital with encephalopathy and seizure. Neurology was suspecting a brain tumor. She received
Keppra seizure medication. Patient's family clearly stated they want comfort care/hospice for the patient. Hospice team was consulted and patient was transitioned to comfort care/hospice.
Original Note:
Discharge Summary
Discharge Data
Date of Admission: 11/23/24
Date of Discharge: 11/24/24
Total time spent discharging patient (in min): 40
-
Pending Results: No
Hospital Course
79-year-old female with past medical history significant for recent left femur fracture status post cephalomedullary nail fixation, anemia, recurrent MDD, hypertension, hyperlipidemia, NIDDM 2, recurrent major depressive disorder, Pulmonary
Embolism, GERD, constipation, nephrolithiasis status post laser lithotripsy and ureteroscopy, and fecal incontinence presented to the hospital with encephalopathy and seizure. Neurology was suspecting a brain tumor. She received Keppra seizure
medication. Patient's family clearly stated they want comfort care/hospice for the patient. Hospice team was consulted and patient was transitioned to comfort care/hospice.
Discharge Plan
-
Patient Disposition: Hospice - Inpatient [facility]
Discharge Orders:
Discharge Patient (As Directed); Ordered 11/24/24
Ordered By: Kael Salazar
Discharge Date and Time
Print Language: GUYANESE
[2024-11-24] MEDS: MORPHINE 100 IV (11:52)
== END 2024-11-24 12:49 | disposition hospice, inpatient (51) | DRG 101 ==
LOC: 2 NORTH 16:54
PROVIDERS: ADMITTING PHYSICIAN Internal Medicine; ATTENDING PHYSICIAN Hospitalist; CONSULT PHYSICIAN Psychiatry & Neurology Clinical Neurophysiology; EMERGENCY PHYSICIAN Emergency Medicine; FAMILY PHYSICIAN Family Medicine
DX: G40.901 Epilepsy, unspecified, not intractable, with status epilepticus (principal); F33.9 Major depressive disorder, recurrent, unspecified; F03.93 Unspecified dementia, unspecified severity, with mood disturbance; Z51.5 Encounter for palliative care; Z66 Do not resuscitate; I10 Essential (primary) hypertension; K21.9 Gastro-esophageal reflux disease without esophagitis; E78.00 Pure hypercholesterolemia, unspecified; E11.9 Type 2 diabetes mellitus without complications; D49.6 Neoplasm of unspecified behavior of brain; K59.00 Constipation, unspecified; Z79.02 Long term (current) use of antithrombotics/antiplatelets; Z79.84 Long term (current) use of oral hypoglycemic drugs; Z79.899 Other long term (current) drug therapy; Z86.711 Personal history of pulmonary embolism; Z86.73 Personal history of transient ischemic attack (TIA), and cerebral infarction without residual deficits; Z87.891 Personal history of nicotine dependence
CPT/HCPCS: 70450; 80048; 84484; 85025; 85027; 85610; 96374; 99291

== ENCOUNTER 2024-11-24 12:52 | Inpatient (IN) | payer OTHER, SELFPAY ==
--- NOTE | 2024-11-24 12:06 | ADM.HSP ---
Admission - Hospice
History of Present Illness
Please see the discharge summary from today, and that discharge summary will serve as the Hospice Admission note.
Review of Systems
Unable to obtain full review of systems at this time due to: Unresponsive
Physical Exam
General: Other (Obtunded)
Respiratory: Decreased Breath Sounds
Cardiology: Regular Rhythm and S1/S2
GI: Soft, Nontender and Normal Bowel Sounds
Musculoskeletal: No Cyanosis
Skin: Warm and Dry
Neuro: Other (Obtunded)
--- NOTE | 2024-11-24 12:53 | HOSPNOTE ---
Admitting to [facility] hosp[facility] for patient showing severe anxiety and was given two doses of iv Ativan with little relief. Patient continues to be restless/ anxious. Patient has eyes wide open but is not tracking. Patient is unable to eat or
drink safely. Patient is nonverbal, Patient also shows rr 22 and severe flacc score. Family at bedside and in agreement with hospice, patient will be initiated on morphine drip, q2 hr prn Ativan and Robinul for comfort.
[2024-11-24 13:01] VITALS: BP 136/70
--- NOTE | 2024-11-24 13:39 | CM ---
Reviewed the chart notes and spoke with family at bedside. CM continues to be available to patient/family.
Plan: Transitioned to [facility] Hospice.
[2024-11-24] MEDS: NSS (PRESERVATIVE FREE) 1 ML IV (15:01)
[2024-11-24] MEDS: ATIVAN 2 MG IV (15:01)
[2024-11-24] MEDS: ROBINUL 0.2 MG IV (15:02)
[2024-11-24 19:29] VITALS: BP 150/76
[2024-11-24] MEDS: MORPHINE SULFATE 2 MG IV ×2 (20:23→23:38)
[2024-11-24] MEDS: MORPHINE SULFATE 1 MG IV ×2 (22:43→23:09)
[2024-11-24] MEDS: HALDOL 0.25 MG IV (23:27)
[2024-11-25] MEDS: ROBINUL 0.2 MG IV ×2 (00:03→05:12)
[2024-11-25] MEDS: MORPHINE SULFATE 2 MG IV ×2 (05:13→06:24)
[2024-11-25] MEDS: ZOFRAN 4 MG IV (05:28)
--- NOTE | 2024-11-25 07:14 | PTCARENOTE ---
chart flipped 11/24. morphine gtt hung in old chart at 1152 yesterday afternoon. pt currently on a step 2 gtt
--- NOTE | 2024-11-25 07:53 | W.PN.HOSP.TC ---
Today's Communication/Plan
-
See below
Assessment / Plan
Assessment / Plan
Physical Exam
General: Unresponsive
HEENT: Normocephalic and Atraumatic
Respiratory: No breath sounds
Cardiac: No heart sounds
Neuro: Unresponsive
Assessment/Plan
79 y/o female detention resident, with history of end stage dementia, CVAs, hypertension, hyperlipidemia, NIDDM 2, recurrent major depressive disorder, PE, GERD, constipation and fecal incontinence who presented with encephalopathy and seizure.
Neurology was suspecting a brain tumor. She received Keppra seizure medications. Patient's family clearly stated they want comfort care/hospice for the patient. Hospice team was consulted.
Status epilepticus
Strong suspicion for right sided brain tumor given ~1 week progressive rt arm weakness
Essential Hypertension
Hyperlipidemia
History of CVA
Type 2 Diabetes Mellitus
Constipation
Recurrent major depressive disorder
History of impulsive behavior
History of Pulmonary Embolism
History of loop recorder in 2017
Fecal incontinence
Renal calculi history of laser lithotripsy ureteroscopy
-Was on Comfort Care; this morning
-I called patient's daughter and let her know of this
Anticipated Discharge: Today
Subjective/Interval History
-
Date of Service: November 25, 2024
Patient was seen and examined. She this morning.
Objective Data
-
Vital Signs:
Vital Signs
Temp Pulse Resp BP Pulse Ox
98.8 F 112 15 150/76 92
11/24/24 19:29 11/24/24 19:29 11/24/24 19:29 11/24/24 19:29 11/25/24 02:41
--- NOTE | 2024-11-25 08:01 | W.PN.DEATH ---
Pronouncement of
-
Called to see patient to pronounce.
No spontaneous heart tones or respirations noted.
Patient not responsive to verbal stimuli.
Patient is pronounced .
Time of : 07:51
Date of : 11/25/24
Cause of : Acute Hypoxic Respiratory Failure
Family Notified: Yes
--- NOTE | 2024-11-25 08:04 | W.DCSUMMARY ---
Discharge Summary
Discharge Data
Date of Admission: 11/24/24
Date of Discharge: 11/25/24
Total time spent discharging patient (in min): 41
-
Pending Results: No
Hospital Course
79-year-old female with past medical history significant for end stage dementia, CVAs, recent left femur fracture status post cephalomedullary nail fixation, anemia, recurrent MDD, hypertension, hyperlipidemia, NIDDM 2, recurrent major depressive
disorder, Pulmonary Embolism, GERD, constipation, nephrolithiasis status post laser lithotripsy and ureteroscopy, and fecal incontinence presented to the hospital with encephalopathy and seizure. Neurology was suspecting a brain tumor. She received
Keppra seizure medication. Patient's family clearly stated they want comfort care/hospice for the patient. Hospice team was consulted and patient was transitioned to comfort care/hospice. Patient on November 25, 2024.
Discharge Plan
-
Patient Disposition:
Date/Time
Date/Time: 11/25/24 07:51
Discharge Date and Time
Discharge Date/Time: 11/25/24 07:51
Print Language: UPPER SORBIAN
--- NOTE | 2024-11-25 09:48 | PTCARENOTE ---
during rounds pt with no heart or lung sounds for RN. MD made aware and family contacted.
== END 2024-11-25 07:51 | disposition expired | DRG 951 ==
LOC: 2 NORTH 12:52
PROVIDERS: ADMITTING PHYSICIAN Internal Medicine; ATTENDING PHYSICIAN Hospitalist; FAMILY PHYSICIAN Internal Medicine Cardiovascular Disease
DX: Z51.5 Encounter for palliative care (principal); J96.01 Acute respiratory failure with hypoxia; F33.9 Major depressive disorder, recurrent, unspecified; G93.40 Encephalopathy, unspecified; G40.901 Epilepsy, unspecified, not intractable, with status epilepticus; D49.6 Neoplasm of unspecified behavior of brain; F03.90 Unspecified dementia, unspecified severity, without behavioral disturbance, psychotic disturbance, mood disturbance, and anxiety; E78.5 Hyperlipidemia, unspecified; I10 Essential (primary) hypertension; E11.9 Type 2 diabetes mellitus without complications; D64.9 Anemia, unspecified; K21.9 Gastro-esophageal reflux disease without esophagitis; K59.00 Constipation, unspecified; R15.9 Full incontinence of feces; Z86.73 Personal history of transient ischemic attack (TIA), and cerebral infarction without residual deficits; Z86.711 Personal history of pulmonary embolism; Z87.442 Personal history of urinary calculi